=== PATIENT | male | born 1985 | race Caucasian/White ===

== ENCOUNTER 2020-01-17 10:48 | Inpatient (IN) | payer OTHER ==
--- NOTE | 2020-01-17 12:00 | PDOC ---
History of Present Illness - General Chief Complaint: Pain Stated Complaint: ABD PAIN Time Seen by Provider: 01/17/20 11:17 History Source: Patient Exam Limitations: No Limitations Past History - Travel History Traveled outside of the country in the last 30 days: No Close contact w/someone who was outside of country & ill: No - Medical History Allergies/Adverse Reactions: Allergies Allergy/AdvReac Type Severity Reaction Status Date / Time No Known Allergies Allergy Verified 01/17/20 10:51 Home Medications: Ambulatory Orders NK [No Known Home Medication] 01/17/20 COPD: No - Psycho-Social/Smoking History Smoking History: Never smoked Have you smoked in the past 12 months: No - Substance Abuse Hx (Audit-C & DAST Scrn) How often the patient has a drink containing alcohol: Monthly or less Number of drinks the patient has on a typical day: 1 or 2 How often the patient has six or more drinks on one occasion: Never Score: In Men: 4 or > Positive; In Women: 3 or > Positive: 1 Screen Result (Pos requires Nsg. Audit-10AR): Negative In the last yr the pt used illegal drug/Rx for NonMed reason: No Score: Yes response is considered Positive: 0 Screen Result (Positive result requires Nsg. DAST-10): Negative Review of Systems - Review of Systems Able to Perform ROS?: Yes Comments:: 01/17/20 11:55 CONSTITUTIONAL: Absent: fever, chills, diaphoresis, generalized weakness, malaise, loss of appetite HEENT: Absent: rhinorrhea, nasal congestion, throat pain, throat swelling, difficulty swallowing, mouth swelling, ear pain, eye pain, visual Changes CARDIOVASCULAR: Absent: chest pain, loss of consciousness, palpitations, irregular heart rate, peripheral edema RESPIRATORY: Absent: cough, shortness of breath, dyspnea with exertion, orthopnea, wheezing, stridor, hemoptysis GASTROINTESTINAL: Present: Abdominal pain, nausea Absent: abdominal distension, vomiting, diarrhea, constipation, melena, hematochezia GENITOURINARY: Absent: dysuria, frequency, urgency, hesitancy, hematuria, flank pain, genital pain MUSCULOSKELETAL: Absent: myalgia, arthralgia, joint swelling SKIN: Absent: rash, itching, pallor HEMATOLOGIC/IMMUNOLOGIC: Absent: easy bleeding, easy bruising, lymphadenopathy, frequent infections ENDOCRINE: Absent: unexplained weight gain, unexplained weight loss, heat intolerance, cold intolerance NEUROLOGIC: Absent: headache, focal weakness or paresthesias, dizziness, unsteady gait, seizure, mental status changes, bladder or bowel incontinence PSYCHIATRIC: Absent: anxiety, depression, suicidal or homicidal ideation, hallucinations. Is the patient limited Liberian proficient: No *Physical Exam - Vital Signs Last Vital Signs Temp Pulse Resp BP Pulse Ox 98.4 F 121 H 20 141/94 100 01/17/20 10:51 01/17/20 10:51 01/17/20 10:51 01/17/20 10:51 01/17/20 10:51 - Physical Exam 01/17/20 11:55 GENERAL: Well developed, well nourished. Awake and alert. No acute distress. HEENT: Normocephalic, atraumatic. PERRLA, EOMI. No conjunctival pallor. Sclera are non-icteric. Moist mucous membranes. NECK: Supple. Full ROM. No lymphadenopathy. CARDIOVASCULAR: Regular rate and rhythm. Distal pulses are 2+ and symmetric. PULMONARY: No evidence of respiratory distress. Breathing comfortably on room air. ABDOMINAL: Tenderness palpation of the epigastric region, suprapubic region. Soft. Non- distended. No rebound or guarding. No organomegaly. MUSCULOSKELETAL Normal range of motion at all joints. No bony deformities or tenderness. No CVA tenderness. EXTREMITIES: No cyanosis. No clubbing. No edema. No calf tenderness. SKIN: Warm and dry. Normal capillary refill. No rashes. No jaundice. NEUROLOGICAL: Alert, awake, appropriate. Cranial nerves 2-12 intact. No deficits to light touch and temperature in face, upper extremities and lower extremities. No motor deficits in the in face, upper extremities and lower extremities. Normoreflexic in the upper and lower extremities. Normal speech. Toes are down-going bilaterally. Gait is normal without ataxia. PSYCHIATRIC: Cooperative. Good eye contact. Appropriate mood and affect. ED Treatment Course - LABORATORY CBC & Chemistry Diagram: 01/17/20 13:05 01/17/20 13:05 Medical Decision Making - Medical Decision Making 01/17/20 11:56 The patient is a 34-year-old male with past medical history of morbid obesity, presents to the ER today for abdominal pain for 8 days. He states that approximately 1 week ago he ate chicken at work. He states that shortly thereafter he immediately developed abdominal pain and nausea. He states he threw up once which did help with his pain. He states that since then the pain is been persistent and has not improved with Kaopectate or Tylenol. He went to urgent care for evaluation yesterday who told him if the pain was worse to go to the ER. He states he did not do any blood work or work-up at that time. Currently denies fevers, chills, COVID exposure, shortness of breath, difficulty breathing, chest pain, diarrhea, constipation, vomiting, urinary symptoms. A/P: Abdominal pain On exam patient is tender in the epigastric region. He states that the pain sometimes travels to the periumbilical/suprapubic region however mostly focused in his upper abdomen. Denies recent antibiotic use, travel, alcohol use. Broad differential diagnosis including PUD, gastritis, pancreatitis, cholecystitis, cholangitis, appendicitis Labs, IV medication and fluids, urine, ultrasound and CT ordered Reevaluate 01/17/20 16:[address], there is an inflamed appendix with abscess formation. Likely perfect appendectomy Ultrasound shows sludge in the gallbladder with stones without evidence of acute cholecystitis. Patient is a white count of 17 with a left shift. Blood cultures drawn, Zosyn 4.5 given, morphine for pain Consulted with Dr. Maza he is aware and will evaluate the patient. Patient does not have a PCP. Will admit to hospitalist. Discharge - Discharge Information Problems reviewed: Yes Clinical Impression/Diagnosis: Appendicitis with abscess Condition: Guarded - Admission Yes - Follow up/Referral - Patient Discharge Instructions - Post Discharge Activity
[2020-01-17] MEDS ORDERED: FAMOTIDINE 20 MG/50 ML IVPB 20 MG/50 ML MG IVPB ONE ×2 (12:57→13:06)
[2020-01-17] MEDS ORDERED: ONDANSETRON 4 MG/2 ML VIAL IVPUSH ONE (12:57)
[2020-01-17] MEDS ORDERED: SODIUM CHLORIDE 1,000 ML IV STA (12:57)
[2020-01-17] MEDS ORDERED: ACETAMINOPHEN 1000 MG/100 ML VIAL (NON FORMULARY) IVPB ONE (12:57)
[2020-01-17] MEDS ORDERED: ACETAMINOPHEN INJECTION 100 ML IVPB ONE (13:06)
[2020-01-17 13:28] LABS: BASO % 0.4 % (0-2.0); EOS % 0.4 % (0-4.5); HEMATOCRIT 45.9 % (35.4-49); HEMOGLOBIN 15.8 GM/dL (11.7-16.9); LYMPH % 7.6 % (8-40); MCH 29.8 pg (25.7-33.7); MCHC 34.4 g/dl (32.0-35.9); MEAN CELL VOLUME 86.9 fl (80-96); MEAN PLT VOLUME 7.6 fl (7.5-11.1); NEUT % 84.6 % (42.8-82.8); RBC 5.28 M/mm3 (4.00-5.60); RDW 12.8 % (11.9-15.9); WHITE BLOOD COUNT 17.3 K/mm3 (4.0-10.0)
[2020-01-17 13:39] LABS: INR 1.28 (0.83-1.09); PROTHROMBIN TIME (PATIENT) 15.2 SEC (9.7-13.0)
[2020-01-17 13:44] LABS: ALBUMIN 3.6 g/dl (3.4-5.0); BILIRUBIN,TOTAL 0.4 mg/dL (0.2-1); BLOOD UREA NITROGEN 7.8 mg/dL (7-18); CALCIUM 9.5 mg/dL (8.5-10.1); CREATININE 0.8 mg/dL (0.55-1.3); POTASSIUM 4.2 mmol/L (3.5-5.1); TOT PROT 8.4 g/dl (6.4-8.2)
[2020-01-17 14:33] LABS: PLATELET COUNT 362 K/MM3 (134-434)
[2020-01-17] MEDS ORDERED: PIPERACILLIN/TAZOB 4.5 GM 4.5 GM in DEXTROSE 5%-WATER 100 ML IVPB ONE (15:32)
[2020-01-17] MEDS ORDERED: morphine CARPU-JECT 4 MG/1 ML DISP.SYRIN IVPUSH ONE (15:32)
[2020-01-17] MEDS ORDERED: morphine SULFATE 4 MG/ML VIAL ONE (16:10)
[2020-01-17] MEDS ORDERED: PIPERACILLIN/TAZOB 4.5 GM 4.5 GM/100 ML BAG IVPB ONE (16:11)
--- NOTE | 2020-01-17 16:54 | EKG ---
Test Reason : Blood Pressure : / mmHG Vent. Rate : 081 BPM Atrial Rate : 081 BPM P-R Int : 128 ms QRS Dur : 090 ms QT Int : 366 ms P-R-T Axes : 048 052 035 degrees QTc Int : 425 ms NORMAL SINUS RHYTHM WITH SINUS ARRHYTHMIA NORMAL ECG NO PREVIOUS ECGS AVAILABLE Confirmed by MARINA LIRA MD ([id number]) on 01/17/2020 4:54:10 PM Referred By: Confirmed By:MARINA LIRA MD
--- NOTE | 2020-01-17 16:54 | HP ---
CHIEF COMPLAINT: abdominal pain PCP: None HISTORY OF PRESENT ILLNESS: Patient is a 34 year old male with history of morbid obesity, presents with complaint of abdominal pain. States pain has been ongoing for the past 8 days. He believes the pain started after he ate reheated chicken tenders from [email or web address]. The pain was initially dull localized to the epigastrum, however progressed to sharp, stabbing pain radiating to the umbilicus. He endorses that any movement would exacerbate the pain, and he has been able to eat only soups, and small meals. Admits forcing himself to vomit when pain initially began as he thought it would alleviate the symptoms. Describes non blood, nonbilious vomit. He reportedly went to Urgent Care yesterday, and was told to proceed to Emergency Department if pain did not improve. He Has attempted Tylenol and Kaopectate which have been minimally palliative. He denies subjective fevers, shortness of breath, coughing, chest pain, palpitations, diarrhea, constipation, hemoptysis, melena, hematochezia. ER course was notable for: (1) CT abdomen, pelvis (2) Ultrasound abdomen (3) Recent Travel: denies PAST MEDICAL HISTORY: morbid obesity PAST SURGICAL HISTORY: bilateral eustachian tubes FAMILY HISTORY: Mother: diabetes mellitus, ?blood clot (unsure of location)- passed at 54 years old Father: diabetes mellitus Social History: Lives with fiance, and children. 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 He is independent in activities daily living. Smoking: Denies Alcohol: Endorses occasional drink of 4-5 beers, with 4 drinks of liquor once to twice a month. Drugs: Denies Allergies No Known Allergies Allergy (Verified 01/17/20 10:51) HOME MEDICATIONS: Home Medications Medication Instructions Recorded NK [No Known Home Medication] 01/17/20 REVIEW OF SYSTEMS CONSTITUTIONAL: Admits: chills. Absent: fever, diaphoresis, generalized weakness, malaise, loss of appetite, weight change HEENT: Absent: rhinorrhea, nasal congestion, throat pain, throat swelling, difficulty swallowing, mouth swelling, ear pain, eye pain, visual changes CARDIOVASCULAR: Absent: chest pain, syncope, palpitations, irregular heart rate, lightheadedness, peripheral edema RESPIRATORY: Absent: cough, shortness of breath, dyspnea with exertion, orthopnea, wheezing, stridor, hemoptysis GASTROINTESTINAL: Admits: abdominal pain, abdominal distension, nausea, vomiting. Absent: diarrhea, constipation, melena, hematochezia GENITOURINARY: Absent: dysuria, frequency, urgency, hesitancy, hematuria, flank pain, genital pain MUSCULOSKELETAL: Absent: myalgia, arthralgia, joint swelling, back pain, neck pain SKIN: Absent: rash, itching, pallor HEMATOLOGIC/IMMUNOLOGIC: Absent: easy bleeding, easy bruising, lymphadenopathy, frequent infections ENDOCRINE: Absent: unexplained weight gain, unexplained weight loss, heat intolerance, cold intolerance NEUROLOGIC: Absent: headache, focal weakness or paresthesias, dizziness, unsteady gait, seizure, mental status changes, bladder or bowel incontinence PSYCHIATRIC: Absent: anxiety, depression, suicidal or homicidal ideation, hallucinations. PHYSICAL EXAMINATION Vital Signs - 24 hr 01/17/20 10:51 Temperature 98.4 F Pulse Rate 121 H Respiratory 20 Rate Blood Pressure 141/94 O2 Sat by Pulse 100 Oximetry (%) GENERAL: The patient is awake, alert, and fully oriented, in no acute distress. HEAD: Normocephalic, atraumatic. EYES: PERRL, extraocular movements intact, sclera anicteric, conjunctiva clear. ENT: Oropharynx clear, without erythema or exudates. Moist mucous membranes. NECK: Trachea midline, full range of motion. Supple without lymphadenopathy. LUNGS: Breath sounds equal, clear to auscultation bilaterally. No wheezes, no crackles. No accessory muscle use. HEART: Regular rate and rhythm. S1, S2 without murmur, rub or gallop. ABDOMEN: Obese abdomen, distended. Soft, nontender to light and deep palpation x4 quadrants. No rebound tenderness, no guarding. Hypoactive bowel sounds x4 quadrants. No masses appreciated. EXTREMITIES: 2+ radial, dorsalis pedis pulses bilaterally. Warm, well-perfused. Trace lower extremity edema bilaterally. NEUROLOGICAL: Cranial nerves II through XII grossly intact. Normal speech. No gross focal deficits. PSYCH: Normal mood, normal affect upon my encounter. SKIN: Warm, dry. Laboratory Results - last 24 hr 01/17/20 01/17/20 01/17/20 13:05 13:05 13:05 WBC 17.3 H RBC 5.28 Hgb 15.8 Hct 45.9 MCV 86.9 MCH 29.8 MCHC 34.4 RDW 12.8 Plt Count 362 MPV 7.6 Absolute Neuts (auto) 14.7 H Neutrophils % 84.6 H Lymphocytes % 7.6 L Monocytes % 7.0 Eosinophils % 0.4 Basophils % 0.4 Nucleated RBC % 1 H PT with INR 15.20 H INR 1.28 H Sodium 135 L Potassium 4.2 Chloride 99 Carbon Dioxide 27 Anion Gap 9 BUN 7.8 Creatinine 0.8 Est GFR (CKD-EPI)AfAm 134.14 Est GFR (CKD-EPI)NonAf 115.74 Random Glucose 113 H Calcium 9.5 Total Bilirubin 0.4 AST 23 ALT 54 Alkaline Phosphatase 124 H Creatine Kinase Troponin I Total Protein 8.4 H Albumin 3.6 Lipase 121 01/17/20 13:05 WBC RBC Hgb Hct MCV MCH MCHC RDW Plt Count MPV Absolute Neuts (auto) Neutrophils % Lymphocytes % Monocytes % Eosinophils % Basophils % Nucleated RBC % PT with INR INR Sodium Potassium Chloride Carbon Dioxide Anion Gap BUN Creatinine Est GFR (CKD-EPI)AfAm Est GFR (CKD-EPI)NonAf Random Glucose Calcium Total Bilirubin AST ALT Alkaline Phosphatase Creatine Kinase 75 Troponin I < 0.02 Total Protein Albumin Lipase ASSESSMENT/PLAN: Patient is a 34 year old male with history of morbid obesity, presents with complaint of abdominal pain. Abdominal abscess, appendicitis -CT abdomen, pelvis reveals 10 x 7 cm abscess abutting cecum, and appendix. Mild mesenteric edema, with appendiceal wall thickening. Trace free fluid noted. Negative pneumoperitonem, or bowel obstruciton. -Ultrasound abdomen reveals multiple gallstones, sludge however negative for signs of acute cholecystitis. CBD 5mm. -Patient received IV Zosyn, will continue for anaerobic coverage. Vancomycin 1 gram IV one time dose. -Maintain NPO for now, pending surgical evaluation. -Gentle hydration with IV normal saline at 100mL/ hour -Ofirmev 1000mg IV Q 6 hours PRN for pain -Zofran 4mg IV Q 4 hours for nausea (QTC 425 msec) -General surgery evaluation (Dr. Maza) appreciated -Infectious disease consult (Dr. 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 -Will need to establish [place] [facility] [place] upon discharge ( endorses he has not seen a physician in over 7 years) -Will obtain TSH, free T4, HgbA1c, fasting lipid panel FEN -IV normal saline at 100mL/ hour x2 Liters -Follow BMP -NPO pending surgical evaluation Prophylaxis -SCDs bilateral lower extremities. Holding chemical anticoagulation in anticipation of surgical evaluation Disposition -Admit to medical surgical floor. Family Medical History Family History: As Documented Visit type - Emergency Visit Emergency Visit: Yes ED Registration Date: 01/17/20 Care time: The patient presented to the Emergency Department on the above date and was hospitalized for further evaluation of their emergent condition. - New Patient This patient is new to me today: Yes Date on this admission: 01/17/20 - Critical Care Critical Care patient: No ATTENDING PHYSICIAN STATEMENT I saw and evaluated the patient. I reviewed the resident's note and discussed the case with the resident. I agree with the resident's findings and plan as documented. SUBJECTIVE: OBJECTIVE: ASSESSMENT AND PLAN:
[2020-01-17] MEDS: SODIUM CHLORIDE 1,000 ML IV SCH ×2 (17:27→18:39)
[2020-01-17] MEDS ORDERED: FLU VACCINE (FLULAVAL) PF 60 MCG/0.5 ML SYRINGE 2020-2021 IM ONE (18:30)
[2020-01-17] MEDS ORDERED: VANCOMYCIN 1 GM in D5W (PRE-DOCKED) 1,000 MG/250 ML IVPB ONE (19:02)
[2020-01-17] MEDS: ACETAMINOPHEN 1000 MG/100 ML VIAL (NON FORMULARY) IVPB PRN (19:53)
--- NOTE | 2020-01-17 22:17 | PN ---
Teaching Attending Note Name of Resident: Tal Pradhan ATTENDING PHYSICIAN STATEMENT I saw and evaluated the patient. I reviewed the resident's note and discussed the case with the resident. I agree with the resident's findings and plan as documented. SUBJECTIVE: Patient seen and examined at bedside, found to have a para- appendiceal abscess, requiring IR drainage in AM. VSS. OBJECTIVE: GA AAOx3, mild distress HEENT NC/AT, mild acanthosis, wide neck circumference Chest CTAB, no crackles or wheezing CVS S1, S2+, RRR Abd morbidly obese, soft, mid-abdominal TTP, RUQ TTP, BS+ Ext no LE edema, no calf tenderness Vital Signs (72 hours) 01/17/20 01/17/20 01/17/20 10:51 18:04 18:23 Temperature 98.4 F 98.4 F 98.7 F Pulse Rate 121 H 84 Pulse Rate [ 77 Right] Respiratory 20 19 20 Rate Blood Pressure 141/94 140/94 Blood Pressure 121/68 [Left Arm] O2 Sat by Pulse 100 100 99 Oximetry (%) 01/17/20 20:18 Temperature Pulse Rate Pulse Rate [ Right] Respiratory 20 Rate Blood Pressure Blood Pressure [Left Arm] O2 Sat by Pulse 98 Oximetry (%) Laboratory Results - last 24 hr 01/17/20 01/17/20 01/17/20 13:05 13:05 13:05 WBC 17.3 H RBC 5.28 Hgb 15.8 Hct 45.9 MCV 86.9 MCH 29.8 MCHC 34.4 RDW 12.8 Plt Count 362 MPV 7.6 Absolute Neuts (auto) 14.7 H Neutrophils % 84.6 H Lymphocytes % 7.6 L Monocytes % 7.0 Eosinophils % 0.4 Basophils % 0.4 Nucleated RBC % 1 H PT with INR 15.20 H INR 1.28 H Sodium 135 L Potassium 4.2 Chloride 99 Carbon Dioxide 27 Anion Gap 9 BUN 7.8 Creatinine 0.8 Est GFR (CKD-EPI)AfAm 134.14 Est GFR (CKD-EPI)NonAf 115.74 Random Glucose 113 H Calcium 9.5 Total Bilirubin 0.4 AST 23 ALT 54 Alkaline Phosphatase 124 H Creatine Kinase Troponin I Total Protein 8.4 H Albumin 3.6 Lipase 121 01/17/20 13:05 WBC RBC Hgb Hct MCV MCH MCHC RDW Plt Count MPV Absolute Neuts (auto) Neutrophils % Lymphocytes % Monocytes % Eosinophils % Basophils % Nucleated RBC % PT with INR INR Sodium Potassium Chloride Carbon Dioxide Anion Gap BUN Creatinine Est GFR (CKD-EPI)AfAm Est GFR (CKD-EPI)NonAf Random Glucose Calcium Total Bilirubin AST ALT Alkaline Phosphatase Creatine Kinase 75 Troponin I < 0.02 Total Protein Albumin Lipase Home Medications Medication Instructions Recorded NK [No Known Home Medication] 01/17/20 Current Medications Generic Name Dose Route Start Last Admin Trade Name Freq PRN Reason Stop Dose Admin Acetaminophen 1,000 mg 01/17/20 17:27 01/17/20 19:53 Ofirmev Injection - IVPB 1,000 mg Q6H PRN Administration PAIN LEVEL 1-5 Sodium Chloride 1,000 mls @ 100 mls/hr 01/17/20 17:00 01/17/20 18:39 Normal Saline - IV 01/19/20 02:59 100 mls/hr ASDIR LEIDY Administration Piperacillin Sod/Tazobactam 50 mls @ 100 mls/hr 01/18/20 02:00 Sod 3.375 gm/ Dextrose IVPB Q8H-IV LEIDY Protocol Morphine Sulfate 2 mg 01/17/20 19:33 Morphine Sulfate IVPUSH Q4H PRN PAIN LEVEL 7 - 10 ASSESSMENT AND PLAN: 34 M Para-appendiceal/cecal abscess Morbid obesity Pre-HTN Fatty liver Plan: Empiric Zosyn/Vancomycin pending IR drainage Tylenol/Percocet for pain control IV hydration, serial abdominal exams Will eventually need colonoscopy once infection clears Send A1c/lipids/TSH DVT ppx: SCD
[2020-01-17] MEDS: MORPHINE SULFATE 2 MG/ML VIAL IVPUSH PRN (22:42)
[2020-01-18] MEDS ORDERED: PIPERACILLIN/TAZOBACTAM 3.375 GM VIAL IVPB ONE ×3 (01:02→17:59)
[2020-01-18] MEDS ORDERED: DEXTROSE 5%-WATER - 50 ML IVPB ONE ×3 (01:02→17:59)
[2020-01-18] MEDS: ACETAMINOPHEN 1000 MG/100 ML VIAL (NON FORMULARY) IVPB PRN ×4 (01:30→22:54)
[2020-01-18] MEDS: PIPERACILLIN/TAZOB 3.375 GM 3.375 GM in DEXTROSE 5%-WATER - 50 ML IVPB SCH ×3 (01:33→18:02)
[2020-01-18 02:09] LABS: PH,URINE 6.5 (5.0-8.0); URINE APPEARANCE CLEAR; URINE BILIRUBIN NEGATIVE (NEGATIVE); URINE COLOR YELLOW; URINE GLUCOSE (UA) NEGATIVE (NEGATIVE); URINE KETONE TRACE (NEGATIVE); URINE LEUK ESTERASE NEGATIVE (NEGATIVE); URINE NITRITE NEGATIVE (NEGATIVE); URINE PROTEIN NEGATIVE (NEGATIVE); URINE UROBILINOGEN 0.2 mg/dL (0.2-1.0)
[2020-01-18] MEDS: MORPHINE SULFATE 2 MG/ML VIAL IVPUSH PRN ×4 (04:34→20:04)
[2020-01-18] MEDS: SODIUM CHLORIDE 1,000 ML IV SCH ×2 (06:59→17:05)
[2020-01-18 08:23] LABS: HEMATOCRIT 39.6 % (35.4-49); HEMOGLOBIN 13.7 GM/dL (11.7-16.9); MCH 29.9 pg (25.7-33.7); MCHC 34.5 g/dl (32.0-35.9); MEAN CELL VOLUME 86.6 fl (80-96); MEAN PLT VOLUME 7.4 fl (7.5-11.1); PLATELET COUNT 291 K/MM3 (134-434); RBC 4.58 M/mm3 (4.00-5.60); RDW 12.7 % (11.9-15.9)
[2020-01-18 08:24] LABS: INR 1.39 (0.83-1.09); PROTHROMBIN TIME (PATIENT) 16.4 SEC (9.7-13.0)
[2020-01-18 08:27] LABS: ACTIVATED PTT 28.2 SECONDS (25.2-36.5)
[2020-01-18 08:41] LABS: BILIRUBIN,TOTAL 0.4 mg/dL (0.2-1); CALCIUM 8.7 mg/dL (8.5-10.1); CREATININE 0.7 mg/dL (0.55-1.3); MAGNESIUM 2.2 mg/dL (1.8-2.4); PHOSPHOROUS 4.2 mg/dL (2.5-4.9)
--- NOTE | 2020-01-18 09:38 | PN ---
Teaching Attending Note Name of Resident: Karol Prince ATTENDING PHYSICIAN STATEMENT I saw and evaluated the patient. I reviewed the resident's note and discussed the case with the resident. I agree with the resident's findings and plan as documented. SUBJECTIVE: patient waiting to go to IR for drainage OBJECTIVE: Vital Signs Temperature 98.7 F 01/18/20 06:16 Pulse Rate 93 H 01/18/20 06:16 Respiratory Rate 20 01/18/20 06:16 Blood Pressure 126/77 01/18/20 06:16 O2 Sat by Pulse Oximetry (%) 98 01/18/20 06:16 PE: per resident's note CBCD WBC 16.0 K/mm3 (4.0-10.0) H 01/18/20 07:45 RBC 4.58 M/mm3 (4.00-5.60) 01/18/20 07:45 Hgb 13.7 GM/dL (11.7-16.9) 01/18/20 07:45 Hct 39.6 % (35.4-49) 01/18/20 07:45 MCV 86.6 fl (80-96) 01/18/20 07:45 MCHC 34.5 g/dl (32.0-35.9) 01/18/20 07:45 RDW 12.7 % (11.9-15.9) 01/18/20 07:45 Plt Count 291 K/MM3 (134-434) 01/18/20 07:45 MPV 7.4 fl (7.5-11.1) L 01/18/20 07:45 CMP Sodium 138 mmol/L (136-145) 01/18/20 07:45 Potassium 4.0 mmol/L (3.5-5.1) 01/18/20 07:45 Chloride 104 mmol/L (98-107) 01/18/20 07:45 Carbon Dioxide 26 mmol/L (21-32) 01/18/20 07:45 Anion Gap 8 MMOL/L (8-16) 01/18/20 07:45 BUN 7.0 mg/dL (7-18) 01/18/20 07:45 Creatinine 0.7 mg/dL (0.55-1.3) 01/18/20 07:45 Random Glucose 111 mg/dL (74-106) H 01/18/20 07:45 Calcium 8.7 mg/dL (8.5-10.1) 01/18/20 07:45 Total Bilirubin 0.4 mg/dL (0.2-1) 01/18/20 07:45 AST 23 U/L (15-37) 01/18/20 07:45 ALT 43 U/L (13-61) 01/18/20 07:45 Alkaline Phosphatase 100 U/L (45-117) 01/18/20 07:45 Total Protein 7.0 g/dl (6.4-8.2) 01/18/20 07:45 Albumin 3.0 g/dl (3.4-5.0) L 01/18/20 07:45 CARDIAC ENZYMES Creatine Kinase 75 U/L (26-308) 01/17/20 13:05 Troponin I < 0.02 ng/ml (0.00-0.05) 01/17/20 13:05 Current Medications Generic Name Dose Route Start Last Admin Trade Name Freq PRN Reason Stop Dose Admin Acetaminophen 1,000 mg 01/17/20 17:27 01/18/20 06:55 Ofirmev Injection - IVPB 1,000 mg Q6H PRN Administration PAIN LEVEL 1-5 Sodium Chloride 1,000 mls @ 100 mls/hr 01/17/20 17:00 01/18/20 06:59 Normal Saline - IV 01/19/20 02:59 100 mls/hr ASDIR LEIDY Administration Piperacillin Sod/Tazobactam 50 mls @ 100 mls/hr 01/18/20 02:00 01/18/20 09:30 Sod 3.375 gm/ Dextrose IVPB 100 mls/hr Q8H-IV LEIDY Administration Protocol Morphine Sulfate 2 mg 01/17/20 19:33 01/18/20 09:28 Morphine Sulfate IVPUSH 2 mg Q4H PRN Administration PAIN LEVEL 7 - 10 Home Medications Medication Instructions Recorded NK [No Known Home Medication] 01/17/20 CT abdomen, pelvis reveals 10 x 7 cm abscess abutting cecum, and appendix. Mild mesenteric edema, with appendiceal wall thickening. Trace free fluid noted. Negative pneumoperitonem, or bowel obstruciton. Ultrasound abdomen reveals multiple gallstones, sludge however negative for signs of acute cholecystitis. CBD 5mm. ASSESSMENT AND PLAN: Patient is a 34yom with hx of morbid obesity, presents with complaint of abdominal pain and was found to have abdominal abscesses with appendicitis. 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 DVt px: SCDs bilateral lower extremities. will hold off on Ac since for possible sx vs IR procedure
--- NOTE | 2020-01-18 11:56 | CONSULT ---
<Jenny Gregorio - Last Filed: 01/18/20 11:59> - Consultation REQUESTING PROVIDER: CONSULT REQUEST: We have been asked to surgically evaluate this patient for abscess/ruptured appendicitis Hospitalist:Nestor Whitley HISTORY OF PRESENT ILLNESS: 34 y/o M w/ PMHx morbid obesity, a/w abdominal pain. Pt reports he began having epigastric pain last Monday 01/08 at work after eating leftover food. States he left work early, went home and forced himself to vomit (nonbloody, nonbilious) a few times without improvement. Took Tylenol and Mylanta with minimal relief. Began having abdominal cramping Friday which persisted most of the week. States he drank liquids and was able to tolerate small amounts of food without issue. Has had worsening periumbilical pain over the past 2 days and went to urgent care who referred him to the ED for further evaluation. Denies n/v/d. Has been having normal bowel movements all week. PMHx: as above PSHx: b/l Eustachian tubes Home Medications Medication Instructions Recorded NK [No Known Home Medication] 01/17/20 Allergies Allergy/AdvReac Type Severity Reaction Status Date / Time No Known Allergies Allergy Verified 01/17/20 10:51 REVIEW OF SYSTEMS: CONSTITUTIONAL: Absent: fever, chills CARDIOVASCULAR: Absent: chest pain, syncope RESPIRATORY: Absent: cough, shortness of breath GASTROINTESTINAL: (+) abdominal pain, (-) abdominal distension, (-) nausea, (+)vomiting, (- )diarrhea PHYSICAL EXAM: GENERAL: Awake, alert, and fully oriented, in no acute distress. HEAD: Normal with no signs of trauma. LUNGS: No accessory muscle use on RA ABDOMEN: Soft, obese, +ttp around umbilicus, not distended, hypoactie bowel sounds Vital Signs Temperature 98.9 F 01/18/20 10:00 Pulse Rate 81 01/18/20 10:00 Respiratory Rate 20 01/18/20 10:00 Blood Pressure 139/80 01/18/20 10:00 O2 Sat by Pulse Oximetry (%) 98 01/18/20 10:00 Lab Results WBC 16.0 K/mm3 (4.0-10.0) H 01/18/20 07:45 RBC 4.58 M/mm3 (4.00-5.60) 01/18/20 07:45 Hgb 13.7 GM/dL (11.7-16.9) 01/18/20 07:45 Hct 39.6 % (35.4-49) 01/18/20 07:45 MCV 86.6 fl (80-96) 01/18/20 07:45 MCHC 34.5 g/dl (32.0-35.9) 01/18/20 07:45 RDW 12.7 % (11.9-15.9) 01/18/20 07:45 Plt Count 291 K/MM3 (134-434) 01/18/20 07:45 INR 1.39 (0.83-1.09) H 01/18/20 07:45 Sodium 138 mmol/L (136-145) 01/18/20 07:45 Potassium 4.0 mmol/L (3.5-5.1) 01/18/20 07:45 Chloride 104 mmol/L (98-107) 01/18/20 07:45 Carbon Dioxide 26 mmol/L (21-32) 01/18/20 07:45 Anion Gap 8 MMOL/L (8-16) 01/18/20 07:45 BUN 7.0 mg/dL (7-18) 01/18/20 07:45 Creatinine 0.7 mg/dL (0.55-1.3) 01/18/20 07:45 Random Glucose 111 mg/dL (74-106) H 01/18/20 07:45 Calcium 8.7 mg/dL (8.5-10.1) 01/18/20 07:45 Blood Type B POSITIVE 01/18/20 07:45 Antibody Screen Negative 01/18/20 07:45 CT A/P (01/17/20): a large approximately 10x7cm abscess is seen within the mesentery centrally at the level of lower abdomen abutting the cecum and appendix. The appendix is visualized along the right lateral border of this abscess appears slightly thickened which could be on the basis of acute appendicitis vs a reactive basis A/P: 34 y/o M w/ PMHx morbid obesity, a/w abdominal pain. CT scan revealing rlq abscess consistent with ruptured appendicitis. afebrile, tachy to low 90s leukocytosis trending down -plan for IR today for drainage of abscess/drain placement -iv abx per ID -Keep npo, ivf -Serial abso exams -Monitor vs -will follow closely d/w attending Dr Maza <Drew Maza - Last Filed: 01/21/20 16:14> - Consultation Attending Surgeon: I personally saw and examined the patient. My examination reveals a patient with complicated appendicitis. I discussed the case with the surgical PA and agree with their findings and plan of care with any exceptions as noted. ~ Drew Maza MD, FACS
[2020-01-18] MEDS ORDERED: MORPHINE SULFATE 2 MG/ML VIAL IM ONE (12:24)
--- NOTE | 2020-01-18 13:13 | CON.ID ---
Consult Consult Specialty:: infectious diseases Referred by:: hospitalist Reason for Consultation:: abd pain - History of Present Illness Chief Complaint: rlq pain History of Present Illness: 34 year old male with history of morbid obesity, presents with complaint of abdominal pain. States pain has been ongoing for the past 8 days. He believes the pain started after he ate reheated chicken tenders from [employer]. The pain was initially dull localized to the epigastrum, however progressed to sharp, stabbing pain radiating to the umbilicus. He endorses that any movement would exacerbate the pain, and he has been able to eat only soups, and small meals. Admits forcing himself to vomit when pain initially began as he thought it would alleviate the symptoms. Describes non blood, nonbilious vomit. He reportedly went to Urgent Care yesterday, and was told to proceed to Emergency Department if pain did not improve. He Has attempted Tylenol and Kaopectate which have been minimally palliative. He denies subjective fevers, shortness of breath, coughing, chest pain, palpitations, diarrhea, constipation, hemoptysis, melena, hematochezia. still continues to have abd pain patient was worked up and found to ahve appendicitis with phlegmon .surgery on the case and the plan is to drain the abscess - History Source History Provided By: Patient Limitations to Obtaining History: No Limitations - Smoking History Smoking history: Never smoked Have you smoked in the past 12 months: No Home Medications - Allergies Allergies/Adverse Reactions: Allergies Allergy/AdvReac Type Severity Reaction Status Date / Time No Known Allergies Allergy Verified 01/17/20 10:51 - Home Medications Home Medications: Ambulatory Orders NK [No Known Home Medication] 01/17/20 Review of Systems - Review of Systems Constitutional: reports: Other (pain) Eyes: reports: No Symptoms HENT: reports: No Symptoms Neck: reports: No Symptoms Cardiovascular: reports: No Symptoms Respiratory: reports: No Symptoms Gastrointestinal: reports: Abdominal Pain Genitourinary: reports: No Symptoms Musculoskeletal: reports: No Symptoms Integumentary: reports: No Symptoms Neurological: reports: No Symptoms Endocrine: reports: No Symptoms Hematology/Lymphatic: reports: No Symptoms Psychiatric: reports: No Symptoms Physical Exam Vital Signs: Vital Signs Temperature 98.9 F 01/18/20 10:00 Pulse Rate 81 01/18/20 10:00 Respiratory Rate 20 01/18/20 10:00 Blood Pressure 139/80 01/18/20 10:00 O2 Sat by Pulse Oximetry (%) 98 01/18/20 10:00 Constitutional: Yes: Well Nourished, No Distress, Calm Eyes: Yes: Conjunctiva Clear HENT: Yes: Atraumatic, Normocephalic Neck: Yes: Supple, Trachea Midline Cardiovascular: Yes: Regular Rate and Rhythm, S1, S2 Respiratory: Yes: Regular, CTA Bilaterally Gastrointestinal: Yes: Soft, Hypoactive Bowel Sounds, Tenderness Musculoskeletal: Yes: WNL Extremities: Yes: WNL Neurological: Yes: Alert, Oriented Psychiatric: Yes: Alert, Oriented Labs: CBC, BMP 01/18/20 07:45 01/18/20 07:45 Imaging - Results Cat Scan: Report Reviewed, Image Reviewed Ultrasound: Report Reviewed, Image Reviewed Assessment/Plan 34 year old male with history of morbid obesity, presents with complaint of abdominal pain. Abdominal abscess, appendicitis Morbid obesity plan patient awaiting drainage cx the drainage abx npo hydration
--- NOTE | 2020-01-18 17:10 | PN ---
Physical Exam: SUBJECTIVE: Patient seen and examined at bedside, reports intermittent cramping, turning pain 10/10 at worse. Worse with any movements, non relieving. at times localized to the umbilicus and radiating to back. He reports that the reason for the delay in seeking medical care was because he thought this was food poisoning and was trying to ride it out. Foul smelling soft stool at first but no diarrhea. few episodes of nausea and vomiting. No fevers but chills in the recent few days OBJECTIVE: Vital Signs Period Temp Pulse Resp BP Sys/Marinelli Pulse Ox Last 24 Hr 98.4 F-99.1 F 76-119 18-20 121-147/68-99 2-100 GENERAL: The patient is awake, alert, and fully oriented, in mild distress HEAD: Normocephalic, atraumatic. EYES: PERRL, extraocular movements intact, sclera anicteric, conjunctiva clear. ENT: Oropharynx clear, without erythema or exudates. Moist mucous membranes. NECK: Trachea midline, full range of motion. Supple without lymphadenopathy. LUNGS: Breath sounds equal, clear to auscultation bilaterally. No wheezes, no crackles. No accessory muscle use. HEART: Regular rate and rhythm. S1, S2 without murmur, rub or gallop. ABDOMEN: Obese abdomen, non distended, + obturator sign . TPP in all quadrants. Hypoactive bowel sounds x4 quadrants. EXTREMITIES: 2+ radial, dorsalis pedis pulses bilaterally. Warm, well-perfused. NEUROLOGICAL: Cranial nerves II through XII grossly intact. Normal speech. No gross focal deficits. SKIN: Warm, dry. Laboratory Results - last 24 hr 01/18/20 01/18/20 01/18/20 00:00 07:45 07:45 WBC 16.0 H RBC 4.58 Hgb 13.7 Hct 39.6 MCV 86.6 MCH 29.9 MCHC 34.5 RDW 12.7 Plt Count 291 MPV 7.4 L PT with INR 16.40 H INR 1.39 H PTT (Actin FS) 28.2 Sodium Potassium Chloride Carbon Dioxide Anion Gap BUN Creatinine Est GFR (CKD-EPI)AfAm Est GFR (CKD-EPI)NonAf Random Glucose Hemoglobin A1c % Calcium Phosphorus Magnesium Total Bilirubin AST ALT Alkaline Phosphatase Total Protein Albumin Triglycerides Cholesterol Total LDL Cholesterol HDL Cholesterol TSH Free T4 Urine Color Yellow Urine Appearance Clear Urine pH 6.5 Ur Specific [place] 1.018 Urine Protein Negative Urine Glucose (UA) Negative Urine Ketones Trace H Urine Blood Negative Urine Nitrite Negative Urine Bilirubin Negative Urine Urobilinogen 0.2 Ur Leukocyte Esterase Negative Blood Type Antibody Screen 01/18/20 01/18/20 01/18/20 07:45 07:45 07:45 WBC RBC Hgb Hct MCV MCH MCHC RDW Plt Count MPV PT with INR INR PTT (Actin FS) Sodium 138 Potassium 4.0 Chloride 104 Carbon Dioxide 26 Anion Gap 8 BUN 7.0 Creatinine 0.7 Est GFR (CKD-EPI)AfAm 141.70 Est GFR (CKD-EPI)NonAf 122.26 Random Glucose 111 H Hemoglobin A1c % 5.3 Calcium 8.7 Phosphorus 4.2 Magnesium 2.2 Total Bilirubin 0.4 AST 23 ALT 43 Alkaline Phosphatase 100 Total Protein 7.0 Albumin 3.0 L Triglycerides 97 Cholesterol 156 Total LDL Cholesterol 103 H HDL Cholesterol 34 L TSH 1.59 Free T4 1.34 H Urine Color Urine Appearance Urine pH Ur Specific [place] Urine Protein Urine Glucose (UA) Urine Ketones Urine Blood Urine Nitrite Urine Bilirubin Urine Urobilinogen Ur Leukocyte Esterase Blood Type B POSITIVE Antibody Screen Negative Active Medications Generic Name Dose Route Start Last Admin Trade Name Freq PRN Reason Stop Dose Admin Acetaminophen 1,000 mg 01/17/20 17:27 01/18/20 06:55 Ofirmev Injection - IVPB 1,000 mg Q6H PRN Administration PAIN LEVEL 1-5 Sodium Chloride 1,000 mls @ 100 mls/hr 01/17/20 17:00 01/18/20 06:59 Normal Saline - IV 01/19/20 02:59 100 mls/hr ASDIR LEIDY Administration Piperacillin Sod/Tazobactam 50 mls @ 100 mls/hr 01/18/20 18:00 Sod 3.375 gm/ Dextrose IVPB Q8H-IV LEIDY Protocol Morphine Sulfate 2 mg 01/18/20 12:23 01/18/20 14:35 Morphine Sulfate IVPUSH 2 mg Q3H PRN Administration PAIN LEVEL 7 - 10 CTAB: A large approximately 10 x 7 cm abscess is seen within the mesentery centrally at the level of lower abdomen abutting the cecum and appendix. The appendix is visualized along the right lateral border of this abscess appears slightly thickened which could be on the basis of acute appendicitis versus on a reactive basis. Trace pelvic free fluid. Probable diffuse hepatic steatosis. Mild splenomegaly. US Abdomen: Gallstones and gallbladder sludge with no sonographic evidence of cholecystitis. Fatty infiltration of the liver. ASSESSMENT/PLAN: 34 Y M with a PMH of morbid obesity, presents with abdominal pain, CTAP revealed 10 x 7 cm abscess abutting the cecum and appendix + acute appendicitis, admitted for Appendicitis #Appendicitis #abscess abutting cecum, and appendix - abscess likely 2/2 to ruptured appendix 2/2 to appendicitis - CTAB and US abdomen as noted above - Surgery, is consulted, recs appreciated - Pending IR abscess Drainage with - ID, Dr. 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 - New Patient This patient is new to me today: No - Critical Care Critical Care patient: No - Discharge Referral Referred to [facility] Med P.C.: No ATTENDING PHYSICIAN STATEMENT I saw and evaluated the patient. I reviewed the resident's note and discussed the case with the resident. I agree with the resident's findings and plan as documented. SUBJECTIVE: OBJECTIVE: ASSESSMENT AND PLAN:
[2020-01-19] MEDS ORDERED: PIPERACILLIN/TAZOBACTAM 3.375 GM VIAL IVPB ONE ×3 (01:09→17:04)
[2020-01-19] MEDS ORDERED: DEXTROSE 5%-WATER - 50 ML IVPB ONE ×3 (01:09→17:05)
[2020-01-19] MEDS: PIPERACILLIN/TAZOB 3.375 GM 3.375 GM in DEXTROSE 5%-WATER - 50 ML IVPB SCH ×3 (02:30→17:07)
[2020-01-19] MEDS: MORPHINE SULFATE 2 MG/ML VIAL IVPUSH PRN ×4 (06:25→23:38)
[2020-01-19 09:04] LABS: BASO % 0.1 % (0-2.0); EOS % 0.7 % (0-4.5); HEMATOCRIT 41.8 % (35.4-49); HEMOGLOBIN 14.3 GM/dL (11.7-16.9); LYMPH % 12.2 % (8-40); MCH 29.5 pg (25.7-33.7); MCHC 34.1 g/dl (32.0-35.9); MEAN CELL VOLUME 86.6 fl (80-96); MEAN PLT VOLUME 7.6 fl (7.5-11.1); MONO % 6.3 % (3.8-10.2); NEUT % 80.7 % (42.8-82.8); PLATELET COUNT 362 K/MM3 (134-434); RBC 4.83 M/mm3 (4.00-5.60); RDW 12.8 % (11.9-15.9)
[2020-01-19 09:28] LABS: BILIRUBIN,TOTAL 0.6 mg/dL (0.2-1); BLOOD UREA NITROGEN 8.4 mg/dL (7-18); CALCIUM 8.9 mg/dL (8.5-10.1); CREATININE 0.7 mg/dL (0.55-1.3); MAGNESIUM 2.3 mg/dL (1.8-2.4); PHOSPHOROUS 3.3 mg/dL (2.5-4.9); POTASSIUM 4.1 mmol/L (3.5-5.1); TOT PROT 7.3 g/dl (6.4-8.2)
--- NOTE | 2020-01-19 09:40 | PN ---
Progress Note, Physician History of Present Illness: stable no new issues feels better after drainage - Current Medication List Current Medications: Active Medications Acetaminophen (Ofirmev Injection -) 1,000 mg IVPB Q6H PRN PRN Reason: PAIN LEVEL 1-5 Last Admin: 01/18/20 22:54 Dose: 1,000 mg Documented by: Piperacillin Sod/Tazobactam (Sod 3.375 gm/ Dextrose) 50 mls @ 100 mls/hr IVPB Q8H-IV LEIDY; Protocol Last Admin: 01/19/20 09:16 Dose: 100 mls/hr Documented by: Morphine Sulfate (Morphine Sulfate) 2 mg IVPUSH Q3H PRN PRN Reason: PAIN LEVEL 7 - 10 Last Admin: 01/19/20 06:25 Dose: 2 mg Documented by: - Objective Vital Signs: Vital Signs Temperature 98.7 F 01/19/20 05:43 Pulse Rate 104 H 01/19/20 05:43 Respiratory Rate 20 01/19/20 05:43 Blood Pressure 125/69 01/19/20 05:43 O2 Sat by Pulse Oximetry (%) 98 01/19/20 05:43 Constitutional: Yes: Calm, Mild Distress Cardiovascular: Yes: S1, S2 Respiratory: Yes: Regular, CTA Bilaterally Gastrointestinal: Yes: Soft, Hypoactive Bowel Sounds, Other (drain in place) Musculoskeletal: Yes: WNL Extremities: Yes: WNL Neurological: Yes: Alert, Oriented Psychiatric: Yes: Alert, Oriented Labs: CBC, BMP 01/19/20 08:08 01/19/20 08:08 INR, PTT INR 1.39 (0.83-1.09) H 01/18/20 07:45 Assessment/Plan 34 year old male with history of morbid obesity, presents with complaint of abdominal pain. Abdominal abscess, appendicitis Morbid obesity plan ct abx await for drainage rest as per the team
--- NOTE | 2020-01-19 10:27 | PN ---
Progress Note (short form) - Note Progress Note: Pt seen and examined. Went to IR yesterday afternoon for drain placement. States the pain is "manageable" today. Had a watery bowel movement this morning. Has been oob to the restroom. Voiding without issue, NPO. Passing some flatus. Denies cp.sob, n/v. Vital Signs Temp 98.7 F 01/19/20 05:43 Pulse 104 H 01/19/20 05:43 Resp 20 01/19/20 05:43 BP 125/69 01/19/20 05:43 Pulse Ox 98 01/19/20 05:43 Intake & Output 01/18/20 01/18/20 01/19/20 11:59 23:59 11:59 Intake Total 1350 1100 1150 Output Total 650 70 Balance 9493 264 0982 Intake: IV 8184 371 2945 Normal Saline - 1,000 ml 7440 126 9697 @ 100 mls/hr IV ASDIR LEIDY Rx#:[id number] IVPB 150 300 50 Output: Drainage 200 70 Left Lower Lateral 200 70 Abdomen Urine 450 Void 450 Other: Voiding Method Toilet Toilet Urinal # Unmeasured Voids Void 1 Bowel Movement No No Yes # Bowel Movements 1 CBC, BMP 01/19/20 08:08 01/19/20 08:08 Gen: awake, alert, nad Resp: Unlabored on RA Abdo: obese, soft, nondistended, some ttp at drain site. Drain in place with feculent brown/green discharge in reservoir and tubing. A/P: 34 y/o M w/ PMHx morbid obesity, a/w abdominal pain. CT scan revealing rlq abscess consistent with ruptured appendicitis. afebrile, tachy 10 1teens leukocytosis continues to trend down drain output 70ml overnight -iv abx per ID -Keep npo, ivf -Drain management per IR -Pain control -Serial abdo exams -Monitor vs -will follow closely d/w attending Dr Maza
[2020-01-19] MEDS: DEXTROSE 5%-NORMAL SALINE 1,000 ML IV SCH (13:36)
--- NOTE | 2020-01-19 14:44 | PN ---
Physical Exam: SUBJECTIVE: Patient seen and examined at bedside, reports some improvement with the Drain, No fevers overnight, reports sweating. Passing gas, able to urinate, loose stool this morning OBJECTIVE: Vital Signs Period Temp Pulse Resp BP Sys/Marinelli Pulse Ox Last 24 Hr 98.2 F-98.7 F 102-119 18-20 125-152/69-100 2-98 GENERAL: The patient is awake, alert, and fully oriented, in mild distress HEAD: Normocephalic, atraumatic. EYES: PERRL, extraocular movements intact, sclera anicteric, conjunctiva clear. ENT: Oropharynx clear, without erythema or exudates. Moist mucous membranes. NECK: Trachea midline, full range of motion. Supple without lymphadenopathy. LUNGS: Breath sounds equal, clear to auscultation bilaterally. No wheezes, no crackles. No accessory muscle use. HEART: Regular rate and rhythm. S1, S2 without murmur, rub or gallop. ABDOMEN: Obese abdomen, non distended. TPP in all quadrants. BS + in all 4 Quadrants. Drain is in place-draining Green/brown EXTREMITIES: 2+ radial, dorsalis pedis pulses bilaterally. Warm, well-perfused. NEUROLOGICAL: Cranial nerves II through XII grossly intact. Normal speech. No gross focal deficits. SKIN: Warm, dry. Laboratory Results - last 24 hr 01/19/20 01/19/20 08:08 08:08 WBC 15.0 H RBC 4.83 Hgb 14.3 Hct 41.8 MCV 86.6 MCH 29.5 MCHC 34.1 RDW 12.8 Plt Count 362 D MPV 7.6 Absolute Neuts (auto) 12.1 H Neutrophils % 80.7 Lymphocytes % 12.2 D Monocytes % 6.3 Eosinophils % 0.7 Basophils % 0.1 Nucleated RBC % 0 Sodium 136 Potassium 4.1 Chloride 101 Carbon Dioxide 26 Anion Gap 9 BUN 8.4 Creatinine 0.7 Est GFR (CKD-EPI)AfAm 141.70 Est GFR (CKD-EPI)NonAf 122.26 Random Glucose 115 H Calcium 8.9 Phosphorus 3.3 Magnesium 2.3 Total Bilirubin 0.6 AST 30 ALT 42 Alkaline Phosphatase 127 H Total Protein 7.3 Albumin 3.0 L Active Medications Generic Name Dose Route Start Last Admin Trade Name Freq PRN Reason Stop Dose Admin Acetaminophen 1,000 mg 01/17/20 17:27 10/06/20 22:54 Ofirmev Injection - IVPB 1,000 mg Q6H PRN Administration PAIN LEVEL 1-5 Piperacillin Sod/Tazobactam 50 mls @ 100 mls/hr 01/18/20 18:00 01/19/20 09:16 Sod 3.375 gm/ Dextrose IVPB 100 mls/hr Q8H-IV LEIDY Administration Protocol Dextrose/Sodium Chloride 1,000 mls @ 100 mls/hr 01/19/20 13:15 01/19/20 13:36 D5-Ns - IV 100 mls/hr ASDIR LEIDY Administration Morphine Sulfate 2 mg 01/18/20 12:23 01/19/20 06:25 Morphine Sulfate IVPUSH 2 mg Q3H PRN Administration PAIN LEVEL 7 - 10 CTAB: A large approximately 10 x 7 cm abscess is seen within the mesentery centrally at the level of lower abdomen abutting the cecum and appendix. The appendix is visualized along the right lateral border of this abscess appears slightly thickened which could be on the basis of acute appendicitis versus on a reactive basis. Trace pelvic free fluid. Probable diffuse hepatic steatosis. Mild splenomegaly. US Abdomen: Gallstones and gallbladder sludge with no sonographic evidence of cholecystitis. Fatty infiltration of the liver. ASSESSMENT/PLAN: 34 Y M with a PMH of morbid obesity, presents with abdominal pain, CTAP revealed 10 x 7 cm abscess abutting the cecum and appendix + acute appendicitis, admitted for Appendicitis #Appendicitis #abscess abutting cecum, and appendix - abscess likely 2/2 to ruptured appendix 2/2 to appendicitis - CTAB and US abdomen as noted above - Surgery, is consulted, recs appreciated Keep NPO - s/p IR abscess Drainage with Drained 70ml of green/brown fluids overnight - ID, Dr. 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, pending eval - Will refer to [facility] [place] for primary care upon discharge (No PCP for >7 years) - HbA1c 5.3, Lipid pannel: Cholesterol 156, LDL 103, HDL 34, TSH 1.59, FT4 1.34 FEN - D5W + NS @ 100 mls/hr - Will continue to monitor electrolytes - NPO DVT ppx - Holding chemical ppx - SCDs Dispo - Will continue to monitor in [place] Visit type - Emergency Visit Emergency Visit: Yes ED Registration Date: 01/17/20 Care time: The patient presented to the Emergency Department on the above date and was hospitalized for further evaluation of their emergent condition. - New Patient This patient is new to me today: No - Critical Care Critical Care patient: No - Discharge Referral Referred to [facility] Med P.C.: No ATTENDING PHYSICIAN STATEMENT I saw and evaluated the patient. I reviewed the resident's note and discussed the case with the resident. I agree with the resident's findings and plan as documented. SUBJECTIVE: OBJECTIVE: ASSESSMENT AND PLAN:
--- NOTE | 2020-01-19 18:46 | PN ---
Teaching Attending Note Name of Resident: Karol Prince ATTENDING PHYSICIAN STATEMENT I saw and evaluated the patient. I reviewed the resident's note and discussed the case with the resident. I agree with the resident's findings and plan as documented. SUBJECTIVE: Patient is feeling better s/p IR procedure OBJECTIVE: Vital Signs Temperature 99.5 F 01/19/20 14:50 Pulse Rate 110 H 01/19/20 14:50 Respiratory Rate 20 01/19/20 14:50 Blood Pressure 136/85 01/19/20 14:50 O2 Sat by Pulse Oximetry (%) 95 01/19/20 14:50 PE;per resident's note CBCD WBC 15.0 K/mm3 (4.0-10.0) H 01/19/20 08:08 RBC 4.83 M/mm3 (4.00-5.60) 01/19/20 08:08 Hgb 14.3 GM/dL (11.7-16.9) 01/19/20 08:08 Hct 41.8 % (35.4-49) 01/19/20 08:08 MCV 86.6 fl (80-96) 01/19/20 08:08 MCHC 34.1 g/dl (32.0-35.9) 01/19/20 08:08 RDW 12.8 % (11.9-15.9) 01/19/20 08:08 Plt Count 362 K/MM3 (134-434) D 01/19/20 08:08 MPV 7.6 fl (7.5-11.1) 01/19/20 08:08 CMP Sodium 136 mmol/L (136-145) 01/19/20 08:08 Potassium 4.1 mmol/L (3.5-5.1) 01/19/20 08:08 Chloride 101 mmol/L (98-107) 01/19/20 08:08 Carbon Dioxide 26 mmol/L (21-32) 01/19/20 08:08 Anion Gap 9 MMOL/L (8-16) 01/19/20 08:08 BUN 8.4 mg/dL (7-18) 01/19/20 08:08 Creatinine 0.7 mg/dL (0.55-1.3) 01/19/20 08:08 Random Glucose 115 mg/dL (74-106) H 01/19/20 08:08 Calcium 8.9 mg/dL (8.5-10.1) 01/19/20 08:08 Total Bilirubin 0.6 mg/dL (0.2-1) 01/19/20 08:08 AST 30 U/L (15-37) 01/19/20 08:08 ALT 42 U/L (13-61) 01/19/20 08:08 Alkaline Phosphatase 127 U/L (45-117) H 01/19/20 08:08 Total Protein 7.3 g/dl (6.4-8.2) 01/19/20 08:08 Albumin 3.0 g/dl (3.4-5.0) L 01/19/20 08:08 CARDIAC ENZYMES Creatine Kinase 75 U/L (26-308) 01/17/20 13:05 Troponin I < 0.02 ng/ml (0.00-0.05) 01/17/20 13:05 Current Medications Generic Name Dose Route Start Last Admin Trade Name Freq PRN Reason Stop Dose Admin Acetaminophen 1,000 mg 01/17/20 17:27 01/18/20 22:54 Ofirmev Injection - IVPB 1,000 mg Q6H PRN Administration PAIN LEVEL 1-5 Piperacillin Sod/Tazobactam 50 mls @ 100 mls/hr 01/18/20 18:00 01/19/20 17:07 Sod 3.375 gm/ Dextrose IVPB 100 mls/hr Q8H-IV LEIDY Administration Protocol Dextrose/Sodium Chloride 1,000 mls @ 100 mls/hr 01/19/20 13:15 01/19/20 13:36 D5-Ns - IV 01/20/20 23:14 100 mls/hr ASDIR LEIDY Administration Morphine Sulfate 2 mg 01/18/20 12:23 01/19/20 17:06 Morphine Sulfate IVPUSH 2 mg Q3H PRN Administration PAIN LEVEL 7 - 10 Home Medications Medication Instructions Recorded NK [No Known Home Medication] 01/17/20 Microbiology 01/17/20 16:15 Blood - Peripheral Venous Blood Culture - Preliminary NO GROWTH OBTAINED AFTER 48 HOURS, INCUBATION TO CONTINUE FOR 3 DAYS. 01/17/20 16:15 Blood - Peripheral Venous Blood Culture - Preliminary NO GROWTH OBTAINED AFTER 48 HOURS, INCUBATION TO CONTINUE FOR [address] abdomen, pelvis reveals 10 x 7 cm abscess abutting cecum, and appendix. Mild mesenteric edema, with appendiceal wall thickening. Trace free fluid noted. N egative pneumoperitonem, or bowel obstruciton. Ultrasound abdomen reveals multiple gallstones, sludge however negative for signs of acute cholecystitis. CBD 5mm. ASSESSMENT AND PLAN: Patient is a 34yom with hx of morbid obesity, presents with complaint of abdominal pain and was found to have abdominal abscesses with appendicitis. #POD#1 s/p IR drainage placement due to Abdominal abscess, appendicitis: On IV zosyn , ID onthe case, surgery and IR on the case #Morbid obesity: wash worker consult apprecited ,clear liquid diet DVt px: SCDs bilateral lower extremities. will hold off on Ac since for possible sx vs IR procedure
[2020-01-19] MEDS: ACETAMINOPHEN 1000 MG/100 ML VIAL (NON FORMULARY) IVPB PRN (22:41)
[2020-01-20] MEDS ORDERED: PIPERACILLIN/TAZOBACTAM 3.375 GM VIAL IVPB ONE ×3 (01:20→16:59)
[2020-01-20] MEDS ORDERED: DEXTROSE 5%-WATER - 50 ML IVPB ONE ×3 (01:21→16:59)
[2020-01-20] MEDS: PIPERACILLIN/TAZOB 3.375 GM 3.375 GM in DEXTROSE 5%-WATER - 50 ML IVPB SCH ×3 (01:26→17:05)
[2020-01-20] MEDS: DEXTROSE 5%-NORMAL SALINE 1,000 ML IV SCH (01:28)
[2020-01-20] MEDS: MORPHINE SULFATE 2 MG/ML VIAL IVPUSH PRN ×3 (02:40→15:10)
[2020-01-20 06:55] LABS: BLOOD UREA NITROGEN 7.4 mg/dL (7-18); GLUCOSE,RANDOM 133 mg/dL (74-106)
[2020-01-20 06:56] LABS: CALCIUM 8.1 mg/dL (8.5-10.1); CHLORIDE 102 mmol/L (98-107); CO2 24 mmol/L (21-32); CREATININE 0.6 mg/dL (0.55-1.3); POTASSIUM 3.9 mmol/L (3.5-5.1); SODIUM 135 mmol/L (136-145)
[2020-01-20 06:57] LABS: ALBUMIN 2.8 g/dl (3.4-5.0); BASO % 0.4 % (0-2.0); BILIRUBIN,TOTAL 0.6 mg/dL (0.2-1); EOS % 0.5 % (0-4.5); HEMATOCRIT 40.4 % (35.4-49); HEMOGLOBIN 13.7 GM/dL (11.7-16.9); LYMPH % 4.3 % (8-40); MAGNESIUM 2.1 mg/dL (1.8-2.4); MCH 29.5 pg (25.7-33.7); MEAN CELL VOLUME 86.9 fl (80-96); MEAN PLT VOLUME 7.5 fl (7.5-11.1); MONO % 2.6 % (3.8-10.2); NEUT % 92.2 % (42.8-82.8); PHOSPHOROUS 2.5 mg/dL (2.5-4.9); PLATELET COUNT 302 K/MM3 (134-434); RBC 4.65 M/mm3 (4.00-5.60); RDW 12.6 % (11.9-15.9); TOT PROT 6.8 g/dl (6.4-8.2); WHITE BLOOD COUNT 11.7 K/mm3 (4.0-10.0)
[2020-01-20 06:58] LABS: SGOT/AST 38 U/L (15-37); SGPT/ALT 59 U/L (13-61)
[2020-01-20 08:11] LABS: ALK PHOS 187 U/L (45-117)
[2020-01-20] MEDS ORDERED: MELATONIN 5 MG TABLETS PO PRN ×2 (09:38→15:01)
[2020-01-20] MEDS ORDERED: DEXTROSE 5%-NORMAL SALINE 1,000 ML IV SCH (09:45)
[2020-01-20 10:03] LABS: ANISOCYTOSIS 0; MACROCYTOSIS 0; PLATELET ESTIMATE NORMAL
--- NOTE | 2020-01-20 10:35 | PN ---
Physical Exam: SUBJECTIVE: Patient seen and examined with Dr. Maza Pt reports last night felt chills, pain at drain site, +flatus and having BMs, voiding without issues, wants to drink water, Denies: CP, SOB, N/V OBJECTIVE: Vital Signs Temperature 99.1 F 01/20/20 06:41 Pulse Rate 109 H 01/20/20 06:41 Respiratory Rate 22 H 01/20/20 06:41 Blood Pressure 145/88 01/20/20 06:41 O2 Sat by Pulse Oximetry (%) 94 L 01/20/20 06:41 GENERAL: The patient is awake, alert, and fully oriented, in no acute distress. Resp: unlabored breathing on RA ABDOMEN: Soft, nontender, nondistended, obese, IR drain with purulent green output, no peritoneal signs EXTREMITIES: warm, well-perfused, no edema. Laboratory Results - last 24 hr 01/17/20 01/20/20 01/20/20 19:45 04:45 04:45 WBC 11.7 H RBC 4.65 Hgb 13.7 Hct 40.4 MCV 86.9 MCH 29.5 MCHC 34.0 RDW 12.6 Plt Count 302 MPV 7.5 Absolute Neuts (auto) 10.8 H Neutrophils % 92.2 H Neutrophils % (Manual) 85.3 H Band Neutrophils % 2.0 Lymphocytes % 4.3 L D Lymphocytes % (Manual) 6.9 L Monocytes % 2.6 L Monocytes % (Manual) 2 L Eosinophils % 0.5 Eosinophils % (Manual) 1.9 Basophils % 0.4 D Basophils % (Manual) 0.0 Myelocytes % (Man) 2 Promyelocytes % (Man) 0 Blast Cells % (Manual) 0 Nucleated RBC % 0 Metamyelocytes 0 Hypochromia 0 Platelet Estimate Normal Polychromasia 0 Poikilocytosis 0 Anisocytosis 0 Microcytosis 0 Macrocytosis 0 Sodium 135 L Potassium 3.9 Chloride 102 Carbon Dioxide 24 Anion Gap No Result Required. BUN 7.4 Creatinine 0.6 Est GFR (CKD-EPI)AfAm 150.97 Est GFR (CKD-EPI)NonAf 130.26 Random Glucose 133 H Calcium 8.1 L Phosphorus 2.5 Magnesium 2.1 Total Bilirubin 0.6 AST 38 H ALT 59 Alkaline Phosphatase 187 H Total Protein 6.8 Albumin 2.8 L COVID-19 (JENNIFER) Not detected Active Medications Generic Name Dose Route Start Last Admin Trade Name Gorge PRN Reason Stop Dose Admin Acetaminophen 1,000 mg 01/17/20 17:27 01/19/20 22:41 Ofirmev Injection - IVPB 1,000 mg Q6H PRN Administration PAIN LEVEL 1-5 Piperacillin Sod/Tazobactam 50 mls @ 100 mls/hr 01/18/20 18:00 01/20/20 09:33 Sod 3.375 gm/ Dextrose IVPB 100 mls/hr Q8H-IV LEIDY Administration Protocol Dextrose/Sodium Chloride 1,000 mls @ 100 mls/hr 01/19/20 13:15 01/20/20 01:28 D5-Ns - IV 01/20/20 23:14 100 mls/hr ASDIR LEIDY Administration Dextrose/Sodium Chloride 1,000 mls @ 100 mls/hr 01/20/20 09:45 D5-Ns - IV 01/20/20 19:44 ASDIR LEIDY Metronidazole 500 mg in 100 mls @ 100 mls/hr 01/20/20 10:15 Flagyl 500mg Premixed Ivpb - IVPB Q8H-IV LEIDY Melatonin 5 mg 01/20/20 09:38 Melatonin PO HS PRN INSOMNIA Morphine Sulfate 2 mg 01/18/20 12:23 01/20/20 09:33 Morphine Sulfate IVPUSH 2 mg Q3H PRN Administration PAIN LEVEL 7 - 10 ASSESSMENT/PLAN: 34 y/o M w/ PMHx morbid obesity, a/w abdominal pain. CT scan revealing rlq abscess consistent with perforated appendicitis. Now s/p IR drainage on 01/18/2020. Now febrile to Tmax 101.8, with leukocytosis downtrending Vitals: febrile overnight 101.8, f/u blood cultures Diet: advance to clears Continue Abx as per ID: Zosyn, flagyl Monitor I&Os: IR drain [id number] Drain management per IR labs: WBC 11.7-leukocytosis downtrending, H&H stable, pain control PRN Plan for repeat CT scan 01/24/20 Serial abdominal exams d/w Dr. Maza <Antelmo Chau - Last Filed: 01/20/20 10:38> Physical Exam: Attending Surgeon: I personally saw and examined the patient. My examination reveals a patient with complicated appendicitis I discussed the case with the surgical PA and agree with their findings and plan of care with any exceptions as noted. ~ Drew Maza MD, FACS <Drew Maza - Last Filed: 01/21/20 16:06>
[2020-01-20] MEDS ORDERED: LACTATED RINGERS SOLUTION 1,000 ML/1,000 ML INFUS.BAG IV SCH (11:15)
--- NOTE | 2020-01-20 12:24 | PN ---
Progress Note, Physician History of Present Illness: stable no new issues - Current Medication List Current Medications: Active Medications Acetaminophen (Ofirmev Injection -) 1,000 mg IVPB Q6H PRN PRN Reason: PAIN LEVEL 1-5 Last Admin: 01/19/20 22:41 Dose: 1,000 mg Documented by: Heparin Sodium (Porcine) (Heparin -) 5,000 unit SQ TID LEIDY Piperacillin Sod/Tazobactam (Sod 3.375 gm/ Dextrose) 50 mls @ 100 mls/hr IVPB Q8H-IV LEIDY; Protocol Last Admin: 01/20/20 09:33 Dose: 100 mls/hr Documented by: Metronidazole (Flagyl 500mg Premixed Ivpb -) 500 mg in 100 mls @ 100 mls/hr IVPB Q8H-IV LEIDY Last Admin: 01/20/20 10:57 Dose: 100 mls/hr Documented by: Lactated Ringer's (Lactated Ringers Solution) 1,000 ml in 1,000 mls @ 125 mls/hr IV ASDIR LEIDY Last Admin: 01/20/20 11:47 Dose: 125 mls/hr Documented by: Melatonin (Melatonin) 5 mg PO HS PRN PRN Reason: INSOMNIA Morphine Sulfate (Morphine Sulfate) 2 mg IVPUSH Q3H PRN PRN Reason: PAIN LEVEL 7 - 10 Last Admin: 01/20/20 09:33 Dose: 2 mg Documented by: - Objective Vital Signs: Vital Signs Temperature 98.6 F 01/20/20 10:08 Pulse Rate 108 H 01/20/20 10:08 Respiratory Rate 20 01/20/20 10:08 Blood Pressure 148/86 01/20/20 10:08 O2 Sat by Pulse Oximetry (%) 96 01/20/20 10:08 Constitutional: Yes: No Distress Cardiovascular: Yes: S1, S2 Respiratory: Yes: Regular, CTA Bilaterally Gastrointestinal: Yes: Normal Bowel Sounds, Soft, Other (drain in place) Musculoskeletal: Yes: WNL Extremities: Yes: WNL Wound/Incision: Yes: Dressing Dry and Intact Neurological: Yes: Alert, Oriented Psychiatric: Yes: Alert, Oriented Labs: CBC, BMP 01/20/20 04:45 01/20/20 04:45 INR, PTT INR 1.39 (0.83-1.09) H 01/18/20 07:45 Assessment/Plan 34 year old male with history of morbid obesity, presents with complaint of abdominal pain. Abdominal abscess, appendicitis Morbid obesity peritonitis plan ct abx monitor drainage rest as per the team
[2020-01-20] MEDS: HEPARIN NA (PORCINE) 5,000 UNITS/ML 1ML VIAL SQ SCH ×2 (15:07→21:11)
[2020-01-20] MEDS: LACTATED RINGERS SOLUTION 1,000 ML/1,000 ML INFUS.BAG IV SCH ×2 (15:08→21:00)
--- NOTE | 2020-01-20 15:30 | PN ---
Physical Exam: SUBJECTIVE: Patient seen and examined at bedside. overnight abdominal pain 10/10 and chills. able to urinate and pass gas. had 1 bowel movement. OBJECTIVE: Vital Signs Period Temp Pulse Resp BP Sys/Marinelli Pulse Ox Last 24 Hr 98 F-101.8 F 85-140 18-30 99-154/65-92 94-96 GENERAL: The patient is awake, alert, and fully oriented, in mild distress HEAD: Normocephalic, atraumatic. EYES: PERRL, extraocular movements intact, sclera anicteric, conjunctiva clear. ENT: Oropharynx clear, without erythema or exudates. Moist mucous membranes. NECK: Trachea midline, full range of motion. Supple without lymphadenopathy. LUNGS: Breath sounds equal, clear to auscultation bilaterally. No wheezes, no crackles. No accessory muscle use. HEART: Regular rate and rhythm. S1, S2 without murmur, rub or gallop. ABDOMEN: Obese abdomen, non distended. TPP in all quadrants. BS + in all 4 Quadrants. Drain is in place-draining Green/brown EXTREMITIES: 2+ radial, dorsalis pedis pulses bilaterally. Warm, well-perfused. NEUROLOGICAL: Cranial nerves II through XII grossly intact. Normal speech. No gross focal deficits. SKIN: Warm, dry. Laboratory Results - last 24 hr 01/17/20 01/20/20 01/20/20 19:45 04:45 04:45 WBC 11.7 H RBC 4.65 Hgb 13.7 Hct 40.4 MCV 86.9 MCH 29.5 MCHC 34.0 RDW 12.6 Plt Count 302 MPV 7.5 Absolute Neuts (auto) 10.8 H Neutrophils % 92.2 H Neutrophils % (Manual) 85.3 H Band Neutrophils % 2.0 Lymphocytes % 4.3 L D Lymphocytes % (Manual) 6.9 L Monocytes % 2.6 L Monocytes % (Manual) 2 L Eosinophils % 0.5 Eosinophils % (Manual) 1.9 Basophils % 0.4 D Basophils % (Manual) 0.0 Myelocytes % (Man) 2 Promyelocytes % (Man) 0 Blast Cells % (Manual) 0 Nucleated RBC % 0 Metamyelocytes 0 Hypochromia 0 Platelet Estimate Normal Polychromasia 0 Poikilocytosis 0 Anisocytosis 0 Microcytosis 0 Macrocytosis 0 Sodium 135 L Potassium 3.9 Chloride 102 Carbon Dioxide 24 Anion Gap No Result Required. BUN 7.4 Creatinine 0.6 Est GFR (CKD-EPI)AfAm 150.97 Est GFR (CKD-EPI)NonAf 130.26 Random Glucose 133 H Calcium 8.1 L Phosphorus 2.5 Magnesium 2.1 Total Bilirubin 0.6 AST 38 H ALT 59 Alkaline Phosphatase 187 H Total Protein 6.8 Albumin 2.8 L COVID-19 (JENNIFER) Not detected Active Medications Generic Name Dose Route Start Last Admin Trade Name Freq PRN Reason Stop Dose Admin Acetaminophen 1,000 mg 01/17/20 17:27 01/19/20 22:41 Ofirmev Injection - IVPB 1,000 mg Q6H PRN Administration PAIN LEVEL 1-5 Heparin Sodium (Porcine) 5,000 unit 01/20/20 14:00 01/20/20 15:07 Heparin - SQ 5,000 unit TID LEIDY Administration Piperacillin Sod/Tazobactam 50 mls @ 100 mls/hr 01/18/20 18:00 01/20/20 09:33 Sod 3.375 gm/ Dextrose IVPB 100 mls/hr Q8H-IV LEIDY Administration Protocol Metronidazole 500 mg in 100 mls @ 100 mls/hr 01/20/20 11:00 01/20/20 10:57 Flagyl 500mg Premixed Ivpb - IVPB 100 mls/hr Q8H-IV LEIDY Administration Lactated Ringer's 1,000 ml in 1,000 mls @ 150 mls/hr 01/20/20 15:03 01/20/20 15:08 Lactated Ringers Solution IV 150 mls/hr ASDIR LEIDY Administration Melatonin 10 mg 01/20/20 15:01 Melatonin PO HS PRN INSOMNIA Morphine Sulfate 2 mg 01/18/20 12:23 01/20/20 15:10 Morphine Sulfate IVPUSH 2 mg Q3H PRN Administration PAIN LEVEL 7 - 10 CTAB: A large approximately 10 x 7 cm abscess is seen within the mesentery centrally at the level of lower abdomen abutting the cecum and appendix. The appendix is visualized along the right lateral border of this abscess appears slightly th ickened which could be on the basis of acute appendicitis versus on a reactive basis. Trace pelvic free fluid. Probable diffuse hepatic steatosis. Mild splenomegaly. US Abdomen: Gallstones and gallbladder sludge with no sonographic evidence of cholecystitis. Fatty infiltration of the liver. ASSESSMENT/PLAN: 34 Y M with a PMH of morbid obesity, presents with abdominal pain, CTAP revealed 10 x 7 cm abscess abutting the cecum and appendix + acute appendicitis, admitted for Appendicitis #Sepsis 2/2 Appendicitis and intra-abdominal abscess #Appendicitis #abscess abutting cecum, and appendix - Last night: Tmax 101.8(rectal), Hr 140 with leukocytosis 11.7 - abscess likely 2/2 to ruptured appendix 2/2 to appendicitis - CTAB and US abdomen as noted above - Surgery, is consulted, recs appreciated Advanced to Clear liquid Diet Plan for repeat CT scan 01/24/20 - s/p IR abscess Drainage with Drained 230ml of green/brown fluids in 24hrs - ID, Dr. 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, pending eval - [place] [facility] [place] (No PCP for >7 years) - HbA1c 5.3, Lipid pannel: Cholesterol 156, LDL 103, HDL 34, TSH 1.59, FT4 1.34 FEN - D5W + NS @ 100 mls/hr - Will continue to monitor electrolytes - Clear Liquid diet DVT ppx - Heparin 5000 SQ for today and will switch to Lovenox 40mg SQ tomorrow Dispo - Will continue to monitor in [place] Visit type - Emergency Visit Emergency Visit: Yes ED Registration Date: 01/17/20 Care time: The patient presented to the Emergency Department on the above date and was hospitalized for further evaluation of their emergent condition. - New Patient This patient is new to me today: No - Critical Care Critical Care patient: No - Discharge Referral Referred to [facility] Med P.C[facility] No ATTENDING PHYSICIAN STATEMENT I saw and evaluated the patient. I reviewed the resident's note and discussed the case with the resident. I agree with the resident's findings and plan as documented. SUBJECTIVE: OBJECTIVE: ASSESSMENT AND PLAN:
--- NOTE | 2020-01-20 18:59 | PN ---
Teaching Attending Note Name of Resident: Karol Prince ATTENDING PHYSICIAN STATEMENT I saw and evaluated the patient. I reviewed the resident's note and discussed the case with the resident. I agree with the resident's findings and plan as documented. SUBJECTIVE: Feels better post IR procedure OBJECTIVE: Vital Signs Temperature 98.7 F 01/20/20 14:46 Pulse Rate 110 H 01/20/20 14:46 Respiratory Rate 20 01/20/20 14:46 Blood Pressure 154/92 01/20/20 14:46 O2 Sat by Pulse Oximetry (%) 94 L 01/20/20 14:46 PE:per resident's note + drainage CBCD WBC 11.7 K/mm3 (4.0-10.0) H 01/20/20 04:45 RBC 4.65 M/mm3 (4.00-5.60) 01/20/20 04:45 Hgb 13.7 GM/dL (11.7-16.9) 01/20/20 04:45 Hct 40.4 % (35.4-49) 01/20/20 04:45 MCV 86.9 fl (80-96) 01/20/20 04:45 MCHC 34.0 g/dl (32.0-35.9) 01/20/20 04:45 RDW 12.6 % (11.9-15.9) 01/20/20 04:45 Plt Count 302 K/MM3 (134-434) 01/20/20 04:45 MPV 7.5 fl (7.5-11.1) 01/20/20 04:45 CMP Sodium 135 mmol/L (136-145) L 01/20/20 04:45 Potassium 3.9 mmol/L (3.5-5.1) 01/20/20 04:45 Chloride 102 mmol/L (98-107) 01/20/20 04:45 Carbon Dioxide 24 mmol/L (21-32) 01/20/20 04:45 Anion Gap No Result Required. 01/20/20 04:45 BUN 7.4 mg/dL (7-18) 01/20/20 04:45 Creatinine 0.6 mg/dL (0.55-1.3) 01/20/20 04:45 Random Glucose 133 mg/dL (74-106) H 01/20/20 04:45 Calcium 8.1 mg/dL (8.5-10.1) L 01/20/20 04:45 Total Bilirubin 0.6 mg/dL (0.2-1) 01/20/20 04:45 AST 38 U/L (15-37) H 01/20/20 04:45 ALT 59 U/L (13-61) 01/20/20 04:45 Alkaline Phosphatase 187 U/L (45-117) H 01/20/20 04:45 Total Protein 6.8 g/dl (6.4-8.2) 01/20/20 04:45 Albumin 2.8 g/dl (3.4-5.0) L 01/20/20 04:45 CARDIAC ENZYMES Creatine Kinase 75 U/L (26-308) 01/17/20 13:05 Troponin I < 0.02 ng/ml (0.00-0.05) 01/17/20 13:05 Current Medications Generic Name Dose Route Start Last Admin Trade Name Freq PRN Reason Stop Dose Admin Acetaminophen 1,000 mg 01/17/20 17:27 01/19/20 22:41 Ofirmev Injection - IVPB 1,000 mg Q6H PRN Administration PAIN LEVEL 1-5 Heparin Sodium (Porcine) 5,000 unit 01/20/20 14:00 01/20/20 15:07 Heparin - SQ 5,000 unit TID LEIDY Administration Piperacillin Sod/Tazobactam 50 mls @ 100 mls/hr 01/18/20 18:00 01/20/20 17:05 Sod 3.375 gm/ Dextrose IVPB 100 mls/hr Q8H-IV LEIDY Administration Protocol Metronidazole 500 mg in 100 mls @ 100 mls/hr 01/20/20 11:00 01/20/20 17:05 Flagyl 500mg Premixed Ivpb - IVPB 100 mls/hr Q8H-IV LEIDY Administration Lactated Ringer's 1,000 ml in 1,000 mls @ 150 mls/hr 01/20/20 15:03 01/20/20 15:08 Lactated Ringers Solution IV 150 mls/hr ASDIR LEIDY Administration Melatonin 10 mg 01/20/20 15:01 Melatonin PO HS PRN INSOMNIA Morphine Sulfate 2 mg 01/18/20 12:23 01/20/20 15:10 Morphine Sulfate IVPUSH 2 mg Q3H PRN Administration PAIN LEVEL 7 - 10 Home Medications Medication Instructions Recorded NK [No Known Home Medication] 01/17/20 ASSESSMENT AND PLAN: Patient is a 34yom with hx of morbid obesity, presents with complaint of abdominal pain and was found to have abdominal abscesses with appendicitis. 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 on heparin sq
[2020-01-20] MEDS: ACETAMINOPHEN 1000 MG/100 ML VIAL (NON FORMULARY) IVPB PRN (21:17)
[2020-01-20 23:59] VITALS: BMI 41.0
[2020-01-21] MEDS ORDERED: PIPERACILLIN/TAZOBACTAM 3.375 GM VIAL IVPB ONE ×2 (00:49→09:39)
[2020-01-21] MEDS ORDERED: DEXTROSE 5%-WATER - 50 ML IVPB ONE ×2 (00:50→09:39)
[2020-01-21] MEDS: PIPERACILLIN/TAZOB 3.375 GM 3.375 GM in DEXTROSE 5%-WATER - 50 ML IVPB SCH ×3 (01:00→18:56)
[2020-01-21] MEDS: LACTATED RINGERS SOLUTION 1,000 ML/1,000 ML INFUS.BAG IV SCH ×2 (04:30→15:00)
[2020-01-21] MEDS: HEPARIN NA (PORCINE) 5,000 UNITS/ML 1ML VIAL SQ SCH ×2 (05:19→13:43)
[2020-01-21 08:51] LABS: BASO % 0.5 % (0-2.0); EOS % 0.1 % (0-4.5); HEMATOCRIT 37.8 % (35.4-49); HEMOGLOBIN 12.8 GM/dL (11.7-16.9); LYMPH % 4.8 % (8-40); MCH 29.4 pg (25.7-33.7); MCHC 33.8 g/dl (32.0-35.9); MEAN CELL VOLUME 86.9 fl (80-96); MEAN PLT VOLUME 7.3 fl (7.5-11.1); MONO % 6.1 % (3.8-10.2); NEUT % 88.5 % (42.8-82.8); PLATELET COUNT 247 K/MM3 (134-434); RBC 4.35 M/mm3 (4.00-5.60); RDW 12.7 % (11.9-15.9); WHITE BLOOD COUNT 18.9 K/mm3 (4.0-10.0)
[2020-01-21 09:27] LABS: ALBUMIN 2.3 g/dl (3.4-5.0); BILIRUBIN,TOTAL 0.8 mg/dL (0.2-1); BLOOD UREA NITROGEN 6.7 mg/dL (7-18); CALCIUM 8.2 mg/dL (8.5-10.1); CREATININE 0.6 mg/dL (0.55-1.3); MAGNESIUM 1.9 mg/dL (1.8-2.4); PHOSPHOROUS 3.3 mg/dL (2.5-4.9); POTASSIUM 3.4 mmol/L (3.5-5.1); TOT PROT 6.3 g/dl (6.4-8.2)
[2020-01-21] MEDS: KCL 10 MEQ IVPB 10 MEQ/100 ML INFUS.BAG IVPB SCH ×2 (11:50→12:42)
--- NOTE | 2020-01-21 12:34 | PN ---
Progress Note, Physician History of Present Illness: starting to feel better drainage tube still draining - Current Medication List Current Medications: Active Medications Acetaminophen (Ofirmev Injection -) 1,000 mg IVPB Q6H PRN PRN Reason: PAIN LEVEL 1-5 Last Admin: 01/20/20 21:17 Dose: 1,000 mg Documented by: Heparin Sodium (Porcine) (Heparin -) 5,000 unit SQ TID LEIDY Last Admin: 01/21/20 05:19 Dose: 5,000 unit Documented by: Piperacillin Sod/Tazobactam (Sod 3.375 gm/ Dextrose) 50 mls @ 100 mls/hr IVPB Q8H-IV LEIDY; Protocol Last Admin: 01/21/20 10:50 Dose: 100 mls/hr Documented by: Metronidazole (Flagyl 500mg Premixed Ivpb -) 500 mg in 100 mls @ 100 mls/hr IVPB Q8H-IV LEIDY Last Admin: 01/21/20 09:52 Dose: 100 mls/hr Documented by: Lactated Ringer's (Lactated Ringers Solution) 1,000 ml in 1,000 mls @ 150 mls/hr IV ASDIR LEIDY Last Admin: 01/21/20 04:30 Dose: 150 mls/hr Documented by: Melatonin (Melatonin) 10 mg PO HS PRN PRN Reason: INSOMNIA Last Admin: 01/20/20 21:12 Dose: 10 mg Documented by: - Objective Vital Signs: Vital Signs Temperature 99.6 F 01/21/20 10:00 Pulse Rate 141 H 01/21/20 10:00 Respiratory Rate 18 01/21/20 10:00 Blood Pressure 144/88 01/21/20 10:00 O2 Sat by Pulse Oximetry (%) 93 L 01/21/20 10:00 Constitutional: Yes: Calm, Mild Distress, Obese HENT: Yes: Atraumatic Neck: Yes: Supple, Trachea Midline Cardiovascular: Yes: Regular Rate and Rhythm Respiratory: Yes: Regular, CTA Bilaterally Gastrointestinal: Yes: Normal Bowel Sounds, Soft Musculoskeletal: Yes: WNL Extremities: Yes: WNL Neurological: Yes: Alert, Oriented Psychiatric: Yes: Alert, Oriented Labs: CBC, BMP 01/21/20 08:15 01/21/20 08:15 INR, PTT INR 1.39 (0.83-1.09) H 01/18/20 07:45 Assessment/Plan 34 year old male with history of morbid obesity, presents with complaint of abdominal pain. Abdominal abscess, appendicitis Morbid obesity peritonitis plan ct abx monitor drainage rest as per the team
[2020-01-21] MEDS: ACETAMINOPHEN 1000 MG/100 ML VIAL (NON FORMULARY) IVPB PRN (13:57)
--- NOTE | 2020-01-21 15:52 | PN ---
Teaching Attending Note Name of Resident: Karol Prince ATTENDING PHYSICIAN STATEMENT I saw and evaluated the patient. I reviewed the resident's note and discussed the case with the resident. I agree with the resident's findings and plan as documented. SUBJECTIVE: Patient is feeling better. OBJECTIVE: Vital Signs Temperature 100.1 F H 01/21/20 13:56 Pulse Rate 113 H 01/21/20 13:56 Respiratory Rate 20 01/21/20 13:56 Blood Pressure 142/85 01/21/20 13:56 O2 Sat by Pulse Oximetry (%) 93 L 01/21/20 10:00 PE: pe resident's note + drainage CBCD WBC 18.9 K/mm3 (4.0-10.0) H 01/21/20 08:15 RBC 4.35 M/mm3 (4.00-5.60) 01/21/20 08:15 Hgb 12.8 GM/dL (11.7-16.9) 01/21/20 08:15 Hct 37.8 % (35.4-49) 01/21/20 08:15 MCV 86.9 fl (80-96) 01/21/20 08:15 MCHC 33.8 g/dl (32.0-35.9) 01/21/20 08:15 RDW 12.7 % (11.9-15.9) 01/21/20 08:15 Plt Count 247 K/MM3 (134-434) 01/21/20 08:15 MPV 7.3 fl (7.5-11.1) L 01/21/20 08:15 CMP Sodium 134 mmol/L (136-145) L 01/21/20 08:15 Potassium 3.4 mmol/L (3.5-5.1) L 01/21/20 08:15 Chloride 100 mmol/L (98-107) 01/21/20 08:15 Carbon Dioxide 25 mmol/L (21-32) 01/21/20 08:15 Anion Gap 9 MMOL/L (8-16) 01/21/20 08:15 BUN 6.7 mg/dL (7-18) L 01/21/20 08:15 Creatinine 0.6 mg/dL (0.55-1.3) 01/21/20 08:15 Random Glucose 116 mg/dL (74-106) H 01/21/20 08:15 Calcium 8.2 mg/dL (8.5-10.1) L 01/21/20 08:15 Total Bilirubin 0.8 mg/dL (0.2-1) 01/21/20 08:15 AST 28 U/L (15-37) 01/21/20 08:15 ALT 50 U/L (13-61) 01/21/20 08:15 Alkaline Phosphatase 169 U/L (45-117) H 01/21/20 08:15 Total Protein 6.3 g/dl (6.4-8.2) L 01/21/20 08:15 Albumin 2.3 g/dl (3.4-5.0) L 01/21/20 08:15 CARDIAC ENZYMES Creatine Kinase 75 U/L (26-308) 01/17/20 13:05 Troponin I < 0.02 ng/ml (0.00-0.05) 01/17/20 13:05 Current Medications Generic Name Dose Route Start Last Admin Trade Name Freq PRN Reason Stop Dose Admin Acetaminophen 1,000 mg 01/17/20 17:27 01/21/20 13:57 Ofirmev Injection - IVPB 1,000 mg Q6H PRN Administration PAIN LEVEL 1-5 Heparin Sodium (Porcine) 5,000 unit 01/20/20 14:00 01/21/20 13:43 Heparin - SQ 5,000 unit TID LEIDY Administration Piperacillin Sod/Tazobactam 50 mls @ 100 mls/hr 01/18/20 18:00 01/21/20 10:50 Sod 3.375 gm/ Dextrose IVPB 100 mls/hr Q8H-IV LEIDY Administration Protocol Metronidazole 500 mg in 100 mls @ 100 mls/hr 01/20/20 11:00 01/21/20 09:52 Flagyl 500mg Premixed Ivpb - IVPB 100 mls/hr Q8H-IV LEIDY Administration Lactated Ringer's 1,000 ml in 1,000 mls @ 150 mls/hr 01/20/20 15:03 01/21/20 15:00 Lactated Ringers Solution IV 150 mls/hr ASDIR LEIDY Administration Melatonin 10 mg 01/20/20 15:01 01/20/20 21:12 Melatonin PO 10 mg HS PRN Administration INSOMNIA Home Medications Medication Instructions Recorded NK [No Known Home Medication] 01/17/20 Microbiology 01/18/20 16:30 Peritoneal Fluid AFB Smear Concentration - Final 01/18/20 16:30 Peritoneal Fluid Mycobacterial Culture - Preliminary 01/18/20 16:30 Peritoneal Fluid Gram Stain - Final 01/18/20 16:30 Peritoneal Fluid Body Fluid Culture - Preliminary Pseudomonas Aeruginosa Klebsiella Pneumoniae Escherichia Coli Enterococcus Faecium Streptococcus Species#2 01/18/20 16:30 Peritoneal Fluid Anaerobic Culture - Preliminary Pending Organism 01/20/20 04:45 Urine - Urine Clean Catch Urine Culture - Final NO GROWTH OBTAINED 01/20/20 04:45 Blood - Peripheral Venous Blood Culture - Preliminary NO GROWTH OBTAINED AFTER 24 HOURS, INCUBATION TO CONTINUE FOR 4 DAYS. 01/20/20 04:45 Blood - Peripheral Venous Blood Culture - Preliminary NO GROWTH OBTAINED AFTER 24 HOURS, INCUBATION TO CONTINUE FOR 4 DAYS. 01/17/20 16:15 Blood - Peripheral Venous Blood Culture - Preliminary NO GROWTH OBTAINED AFTER 72 HOURS, INCUBATION TO CONTINUE FOR 2 DAYS. 01/17/20 16:15 Blood - Peripheral Venous Blood Culture - Preliminary NO GROWTH OBTAINED AFTER 72 HOURS, INCUBATION TO CONTINUE FOR 2 DAYS. ASSESSMENT AND PLAN: Patient is a 34yom with hx of morbid obesity, presents with complaint of abdominal pain and was found to have abdominal abscesses with appendicitis. 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 DVt px: SCDs bilateral lower extremities. hep sq continue
--- NOTE | 2020-01-21 16:12 | PN ---
Physical Exam: SUBJECTIVE: Patient seen and examined at bedside. Vomited 450ml of greenish fluids, once overnight. No fevers. some chills OBJECTIVE: Vital Signs Period Temp Pulse Resp BP Sys/Marinelli Pulse Ox Last 24 Hr 98.9 F-100.1 F 113-141 18-20 140-148/76-94 93-95 GENERAL: The patient is awake, alert, and fully oriented, in mild distress HEAD: Normocephalic, atraumatic. EYES: PERRL, extraocular movements intact, sclera anicteric, conjunctiva clear. ENT: Oropharynx clear, without erythema or exudates. Moist mucous membranes. NECK: Trachea midline, full range of motion. Supple without lymphadenopathy. LUNGS: Breath sounds equal, clear to auscultation bilaterally. No wheezes, no crackles. No accessory muscle use. HEART: Regular rate and rhythm. S1, S2 without murmur, rub or gallop. ABDOMEN: Obese abdomen, non distended. TPP in all quadrants. BS + in all 4 Quadrants. Drain is in place-draining Green/brown EXTREMITIES: 2+ radial, dorsalis pedis pulses bilaterally. Warm, well-perfused. NEUROLOGICAL: Cranial nerves II through XII grossly intact. Normal speech. No gross focal deficits. SKIN: Warm, dry. Laboratory Results - last 24 hr 01/21/20 01/21/20 08:15 08:15 WBC 18.9 H RBC 4.35 Hgb 12.8 Hct 37.8 MCV 86.9 MCH 29.4 MCHC 33.8 RDW 12.7 Plt Count 247 MPV 7.3 L Absolute Neuts (auto) 16.7 H Neutrophils % 88.5 H Lymphocytes % 4.8 L Monocytes % 6.1 D Eosinophils % 0.1 Basophils % 0.5 Nucleated RBC % 0 Sodium 134 L Potassium 3.4 L Chloride 100 Carbon Dioxide 25 Anion Gap 9 BUN 6.7 L Creatinine 0.6 Est GFR (CKD-EPI)AfAm 150.97 Est GFR (CKD-EPI)NonAf 130.26 Random Glucose 116 H Calcium 8.2 L Phosphorus 3.3 Magnesium 1.9 Total Bilirubin 0.8 AST 28 ALT 50 Alkaline Phosphatase 169 H Total Protein 6.3 L Albumin 2.3 L Active Medications Generic Name Dose Route Start Last Admin Trade Name Freq PRN Reason Stop Dose Admin Acetaminophen 1,000 mg 01/17/20 17:27 01/21/20 13:57 Ofirmev Injection - IVPB 1,000 mg Q6H PRN Administration PAIN LEVEL 1-5 Enoxaparin Sodium 40 mg 01/22/20 10:00 Lovenox - SQ DAILY LEIDY Heparin Sodium (Porcine) 5,000 unit 01/21/20 22:00 Heparin - SQ 01/21/20 22:01 ONCE ONE Piperacillin Sod/Tazobactam 50 mls @ 100 mls/hr 01/18/20 18:00 01/21/20 10:50 Sod 3.375 gm/ Dextrose IVPB 100 mls/hr Q8H-IV LEIDY Administration Protocol Metronidazole 500 mg in 100 mls @ 100 mls/hr 01/20/20 11:00 01/21/20 09:52 Flagyl 500mg Premixed Ivpb - IVPB 100 mls/hr Q8H-IV LEIDY Administration Lactated Ringer's 1,000 ml in 1,000 mls @ 150 mls/hr 01/20/20 15:03 01/21/20 15:00 Lactated Ringers Solution IV 150 mls/hr ASDIR LEIDY Administration Melatonin 10 mg 01/20/20 15:01 01/20/20 21:12 Melatonin PO 10 mg HS PRN Administration INSOMNIA ASSESSMENT/PLAN: 34 Y M with a PMH of morbid obesity, presents with abdominal pain, CTAP revealed 10 x 7 cm abscess abutting the cecum and appendix + acute appendicitis, admitted for Appendicitis #Sepsis 2/2 Appendicitis and intra-abdominal abscess #Appendicitis #abscess abutting cecum, and appendix - Last night: Tmax 101.8(rectal), Hr 140 with leukocytosis 11.7 - abscess likely 2/2 to ruptured appendix 2/2 to appendicitis - CTAB and US abdomen noted - Surgery, is consulted, recs appreciated Advanced to Clear liquid Diet Plan for repeat CT scan 01/24/20 - s/p IR abscess Drainage with POD # 3 Drained 15ml of green/brown fluids overnight - ID, Dr. Day is following, recs appreciated Continue Empiric treatment with IV Zosyn 3.375 D#4 Added Flagyl 500mg IV Q8H D#2 Peritoneal Fluid Cx: Prelim: Pseudomonas Aeruginosa, Klebsiella Pneumonia, E. Coli, E. Faecium, Strep species. 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 K 3.4-repleted - Clear Liquid diet DVT ppx - Heparin 5000 SQ for tonight and switch to Lovenox 40mg SQ tomorrow @ 10.00 am Dispo - Will continue to monitor in [place] Visit type - Emergency Visit Emergency Visit: Yes ED Registration Date: 01/17/20 Care time: The patient presented to the Emergency Department on the above date and was hospitalized for further evaluation of their emergent condition. - New Patient This patient is new to me today: No - Critical Care Critical Care patient: No - Discharge Referral Referred to [facility] Med [facility].C[facility] No ATTENDING PHYSICIAN STATEMENT I saw and evaluated the patient. I reviewed the resident's note and discussed the case with the resident. I agree with the resident's findings and plan as documented. SUBJECTIVE: OBJECTIVE: ASSESSMENT AND PLAN:
[2020-01-21] MEDS ORDERED: HEPARIN NA (PORCINE) 5,000 UNITS/ML 1ML VIAL SQ ONE (22:00)
[2020-01-21] MEDS ORDERED: MORPHINE SULFATE 2 MG/ML VIAL IVPUSH PRN (23:58)
[2020-01-22] MEDS ORDERED: DEXTROSE 5%-WATER - 50 ML IVPB ONE ×3 (00:59→17:33)
[2020-01-22] MEDS ORDERED: PIPERACILLIN/TAZOBACTAM 3.375 GM VIAL IVPB ONE ×3 (00:59→17:33)
[2020-01-22] MEDS: PIPERACILLIN/TAZOB 3.375 GM 3.375 GM in DEXTROSE 5%-WATER - 50 ML IVPB SCH ×3 (01:37→17:36)
[2020-01-22 08:35] LABS: BASO % 0.2 % (0-2.0); EOS % 0.2 % (0-4.5); HEMATOCRIT 37.7 % (35.4-49); HEMOGLOBIN 13.1 GM/dL (11.7-16.9); LYMPH % 5.9 % (8-40); MCH 30.5 pg (25.7-33.7); MCHC 34.8 g/dl (32.0-35.9); MEAN CELL VOLUME 87.5 fl (80-96); MEAN PLT VOLUME 7.5 fl (7.5-11.1); MONO % 5.2 % (3.8-10.2); NEUT % 88.5 % (42.8-82.8); PLATELET COUNT 267 K/MM3 (134-434); RBC 4.31 M/mm3 (4.00-5.60); WHITE BLOOD COUNT 16.2 K/mm3 (4.0-10.0)
[2020-01-22 08:55] LABS: ALBUMIN 2.4 g/dl (3.4-5.0); BLOOD UREA NITROGEN 7.2 mg/dL (7-18); CALCIUM 8.4 mg/dL (8.5-10.1); CREATININE 0.7 mg/dL (0.55-1.3); PHOSPHOROUS 2.7 mg/dL (2.5-4.9); POTASSIUM 3.5 mmol/L (3.5-5.1); TOT PROT 6.6 g/dl (6.4-8.2)
[2020-01-22] MEDS: ENOXAPARIN NA (PORCINE) 40 MG/0.4 ML DISP.SYRIN SQ SCH (09:12)
[2020-01-22] MEDS: LACTATED RINGERS SOLUTION 1,000 ML/1,000 ML INFUS.BAG IV SCH ×2 (09:58→17:36)
[2020-01-22] MEDS ORDERED: ENOXAPARIN 40 MG SQ SCH (10:00)
--- NOTE | 2020-01-22 12:47 | PN ---
Progress Note (short form) - Note Progress Note: Attending Surgeon Feels much better today VSS AF abdo-soft; flat and non tender; drain output noted Cultures noted WBC 16.2 IMP: improving clinically PLAN: Continue present tx.; advance to full liquid diet. Drew Moya MD FACS
--- NOTE | 2020-01-22 13:27 | PN ---
Progress Note, Physician History of Present Illness: Pt states he feels well. Denies abd pain/n/v. Tmax 99.2F. No specific complaints. - Current Medication List Current Medications: Active Medications Acetaminophen (Ofirmev Injection -) 1,000 mg IVPB Q6H PRN PRN Reason: PAIN LEVEL 1-5 Last Admin: 01/21/20 13:57 Dose: 1,000 mg Documented by: Enoxaparin Sodium (Lovenox -) 40 mg SQ DAILY LEIDY Last Admin: 01/22/20 09:12 Dose: 40 mg Documented by: Piperacillin Sod/Tazobactam (Sod 3.375 gm/ Dextrose) 50 mls @ 100 mls/hr IVPB Q8H-IV LEIDY; Protocol Last Admin: 01/22/20 09:12 Dose: 100 mls/hr Documented by: Metronidazole (Flagyl 500mg Premixed Ivpb -) 500 mg in 100 mls @ 100 mls/hr IVPB Q8H-IV LEIDY Last Admin: 01/22/20 09:58 Dose: 100 mls/hr Documented by: Lactated Ringer's (Lactated Ringers Solution) 1,000 ml in 1,000 mls @ 150 mls/hr IV ASDIR LEIDY Last Admin: 01/22/20 09:58 Dose: 150 mls/hr Documented by: Melatonin (Melatonin) 10 mg PO HS PRN PRN Reason: INSOMNIA Last Admin: 01/20/20 21:12 Dose: 10 mg Documented by: Morphine Sulfate (Morphine Sulfate) 2 mg IVPUSH Q3H PRN PRN Reason: PAIN LEVEL 4 - 6 - Objective Vital Signs: Vital Signs Temperature 99.2 F 01/22/20 10:00 Pulse Rate 113 H 01/22/20 10:00 Respiratory Rate 20 01/22/20 10:00 Blood Pressure 135/75 01/22/20 10:00 O2 Sat by Pulse Oximetry (%) 96 01/22/20 10:00 Constitutional: Yes: No Distress, Calm Cardiovascular: Yes: Regular Rate and Rhythm Respiratory: Yes: Regular Gastrointestinal: Yes: Normal Bowel Sounds, Soft, Abdomen, Obese, Other (+drain) Genitourinary: Yes: WNL Integumentary: Yes: WNL Neurological: Yes: Alert, Oriented Labs: CBC, BMP 01/22/20 08:05 01/22/20 08:05 INR, PTT INR 1.39 (0.83-1.09) H 01/18/20 07:45 Laboratory Last Values WBC 16.2 K/mm3 (4.0-10.0) H 01/22/20 08:05 RBC 4.31 M/mm3 (4.00-5.60) 01/22/20 08:05 Hgb 13.1 GM/dL (11.7-16.9) 01/22/20 08:05 Hct 37.7 % (35.4-49) 01/22/20 08:05 MCV 87.5 fl (80-96) 01/22/20 08:05 MCH 30.5 pg (25.7-33.7) 01/22/20 08:05 MCHC 34.8 g/dl (32.0-35.9) 01/22/20 08:05 RDW 13.0 % (11.9-15.9) 01/22/20 08:05 Plt Count 267 K/MM3 (134-434) 01/22/20 08:05 MPV 7.5 fl (7.5-11.1) 01/22/20 08:05 Absolute Neuts (auto) 14.4 K/mm3 (1.5-8.0) H 01/22/20 08:05 Neutrophils % 88.5 % (42.8-82.8) H 01/22/20 08:05 Neutrophils % (Manual) 85.3 % (42.8-82.8) H 01/20/20 04:45 Band Neutrophils % 2.0 % 01/20/20 04:45 Lymphocytes % 5.9 % (8-40) L D 01/22/20 08:05 Lymphocytes % (Manual) 6.9 % (8-40) L 01/20/20 04:45 Monocytes % 5.2 % (3.8-10.2) 01/22/20 08:05 Monocytes % (Manual) 2 % (3.8-10.2) L 01/20/20 04:45 Eosinophils % 0.2 % (0-4.5) D 01/22/20 08:05 Eosinophils % (Manual) 1.9 % (0-4.5) 01/20/20 04:45 Basophils % 0.2 % (0-2.0) 01/22/20 08:05 Basophils % (Manual) 0.0 % (0-2.0) 01/20/20 04:45 Myelocytes % (Man) 2 % (0-2) 01/20/20 04:45 Promyelocytes % (Man) 0 % (0-2) 01/20/20 04:45 Blast Cells % (Manual) 0 % (0-0) 01/20/20 04:45 Nucleated RBC % 0 % (0-0) 01/22/20 08:05 Metamyelocytes 0 % (0-2) 01/20/20 04:45 Hypochromia 0 01/20/20 04:45 Platelet Estimate Normal 01/20/20 04:45 Polychromasia 0 01/20/20 04:45 Poikilocytosis 0 01/20/20 04:45 Anisocytosis 0 01/20/20 04:45 Microcytosis 0 01/20/20 04:45 Macrocytosis 0 01/20/20 04:45 PT with INR 16.40 SEC (9.7-13.0) H 01/18/20 07:45 INR 1.39 (0.83-1.09) H 01/18/20 07:45 PTT (Actin FS) 28.2 SECONDS (25.2-36.5) 01/18/20 07:45 Sodium 136 mmol/L (136-145) 01/22/20 08:05 Potassium 3.5 mmol/L (3.5-5.1) 01/22/20 08:05 Chloride 100 mmol/L (98-107) 01/22/20 08:05 Carbon Dioxide 29 mmol/L (21-32) 01/22/20 08:05 Anion Gap 7 MMOL/L (8-16) L 01/22/20 08:05 BUN 7.2 mg/dL (7-18) 01/22/20 08:05 Creatinine 0.7 mg/dL (0.55-1.3) 01/22/20 08:05 Est GFR (CKD-EPI)AfAm 141.70 01/22/20 08:05 Est GFR (CKD-EPI)NonAf 122.26 01/22/20 08:05 Random Glucose 96 mg/dL (74-106) 01/22/20 08:05 Hemoglobin A1c % 5.3 % (4.2-6.3) 01/18/20 07:45 Calcium 8.4 mg/dL (8.5-10.1) L 01/22/20 08:05 Phosphorus 2.7 mg/dL (2.5-4.9) 01/22/20 08:05 Magnesium 2.0 mg/dL (1.8-2.4) 01/22/20 08:05 Total Bilirubin 1.0 mg/dL (0.2-1) 01/22/20 08:05 AST 17 U/L (15-37) 01/22/20 08:05 ALT 38 U/L (13-61) 01/22/20 08:05 Alkaline Phosphatase 153 U/L (45-117) H 01/22/20 08:05 Creatine Kinase 75 U/L (26-308) 01/17/20 13:05 Troponin I < 0.02 ng/ml (0.00-0.05) 01/17/20 13:05 Total Protein 6.6 g/dl (6.4-8.2) 01/22/20 08:05 Albumin 2.4 g/dl (3.4-5.0) L 01/22/20 08:05 Triglycerides 97 mg/dL (0-150) 01/18/20 07:45 Cholesterol 156 mg/dL (50-200) 01/18/20 07:45 Total LDL Cholesterol 103 mg/dL (5-100) H 01/18/20 07:45 HDL Cholesterol 34 mg/dL (40-60) L 01/18/20 07:45 Lipase 121 U/L (73-393) 01/17/20 13:05 TSH 1.59 uIU/ml (0.358-3.74) 01/18/20 07:45 Free T4 1.34 ng/dl (0.76-1.16) H 01/18/20 07:45 Urine Color Yellow 01/18/20 00:00 Urine Appearance Clear 01/18/20 00:00 Urine pH 6.5 (5.0-8.0) 01/18/20 00:00 Ur Specific [place] 1.018 (1.010-1.035) 01/18/20 00:00 Urine Protein Negative (NEGATIVE) 01/18/20 00:00 Urine Glucose (UA) Negative (NEGATIVE) 01/18/20 00:00 Urine Ketones Trace (NEGATIVE) H 01/18/20 00:00 Urine Blood Negative (NEGATIVE) 01/18/20 00:00 Urine Nitrite Negative (NEGATIVE) 01/18/20 00:00 Urine Bilirubin Negative (NEGATIVE) 01/18/20 00:00 Urine Urobilinogen 0.2 mg/dL (0.2-1.0) 01/18/20 00:00 Ur Leukocyte Esterase Negative (NEGATIVE) 01/18/20 00:00 COVID-19 (JENNIFER) Not detected (Not Detected) 01/17/20 19:45 Blood Type B POSITIVE 01/18/20 07:45 Antibody Screen Negative 01/18/20 07:45 Microbiology 01/20/20 04:45 Blood - Peripheral Venous Blood Culture - Preliminary NO GROWTH OBTAINED AFTER 48 HOURS, INCUBATION TO CONTINUE FOR 3 DAYS. 01/20/20 04:45 Blood - Peripheral Venous Blood Culture - Preliminary NO GROWTH OBTAINED AFTER 48 HOURS, INCUBATION TO CONTINUE FOR 3 DAYS. 01/17/20 16:15 Blood - Peripheral Venous Blood Culture - Preliminary NO GROWTH OBTAINED AFTER 96 HOURS, INCUBATION TO CONTINUE FOR 1 DAYS. 01/17/20 16:15 Blood - Peripheral Venous Blood Culture - Preliminary NO GROWTH OBTAINED AFTER 96 HOURS, INCUBATION TO CONTINUE FOR 1 DAYS. 01/18/20 16:30 Peritoneal Fluid AFB Smear Concentration - Final 01/18/20 16:30 Peritoneal Fluid Mycobacterial Culture - Preliminary 01/18/20 16:30 Peritoneal Fluid Gram Stain - Final 01/18/20 16:30 Peritoneal Fluid Body Fluid Culture - Preliminary Pseudomonas Aeruginosa Klebsiella Pneumoniae Escherichia Coli Enterococcus Faecium Streptococcus Species#2 01/18/20 16:30 Peritoneal Fluid Anaerobic Culture - Preliminary Pending Organism 01/20/20 04:45 Urine - Urine Clean Catch Urine Culture - Final NO GROWTH OBTAINED - ....Imaging Chest X-ray: Report Reviewed Problem List - Problems (1) Appendicitis with abscess Code(s): K35.33 - ACUTE APPENDICITIS WITH PERF AND LOC PERITONITIS, WITH ABSCS Assessment/Plan Appendicitis with multiple abscesses s/p drain placement Peritonitis Fever Leukocytosis Morbid obesity -- Pt feels well, no abd tenderness -- Tmax 99.2F, wbc improving -- continue current antibiotics, culture isolates noted
--- NOTE | 2020-01-22 18:15 | PN ---
Progress Note (short form) - Note Progress Note: Patient is better tolerating liquid diet Vital Signs Temperature 98.5 F 01/22/20 14:37 Pulse Rate 102 H 01/22/20 14:37 Respiratory Rate 20 01/22/20 14:37 Blood Pressure 142/76 01/22/20 14:37 O2 Sat by Pulse Oximetry (%) 96 01/22/20 14:37 GENERAL: The patient is awake, alert, and fully oriented, in no acute distress. HEAD: Normal with no signs of trauma. EYES: PERRL, extraocular movements intact, sclera anicteric, conjunctiva clear. ENT: Ears normal, oropharynx clear without exudates, moist mucous membranes. NECK: Trachea midline, full range of motion, supple. LUNGS: Breath sounds equal, clear to auscultation bilaterally, no wheezes, no crackles, no accessory muscle use. HEART: Regular rate and rhythm, S1, S2 without murmur, rub or gallop. ABDOMEN: Soft, NT, + drainage , large abdomen, normoactive bowel sounds, no guarding, no rebound, no hepatosplenomegaly, no masses. EXTREMITIES: 2+ pulses, warm, well-perfused, no edema. NEUROLOGICAL: Cranial nerves II through XII grossly intact. Normal speech, gait not observed. PSYCH: Normal mood, normal affect. SKIN: Warm, dry, normal turgor, no rashes or lesions noted CBCD WBC 16.2 K/mm3 (4.0-10.0) H 01/22/20 08:05 RBC 4.31 M/mm3 (4.00-5.60) 01/22/20 08:05 Hgb 13.1 GM/dL (11.7-16.9) 01/22/20 08:05 Hct 37.7 % (35.4-49) 01/22/20 08:05 MCV 87.5 fl (80-96) 01/22/20 08:05 MCHC 34.8 g/dl (32.0-35.9) 01/22/20 08:05 RDW 13.0 % (11.9-15.9) 01/22/20 08:05 Plt Count 267 K/MM3 (134-434) 01/22/20 08:05 MPV 7.5 fl (7.5-11.1) 01/22/20 08:05 CMP Sodium 136 mmol/L (136-145) 01/22/20 08:05 Potassium 3.5 mmol/L (3.5-5.1) 01/22/20 08:05 Chloride 100 mmol/L (98-107) 01/22/20 08:05 Carbon Dioxide 29 mmol/L (21-32) 01/22/20 08:05 Anion Gap 7 MMOL/L (8-16) L 01/22/20 08:05 BUN 7.2 mg/dL (7-18) 01/22/20 08:05 Creatinine 0.7 mg/dL (0.55-1.3) 01/22/20 08:05 Random Glucose 96 mg/dL (74-106) 01/22/20 08:05 Calcium 8.4 mg/dL (8.5-10.1) L 01/22/20 08:05 Total Bilirubin 1.0 mg/dL (0.2-1) 01/22/20 08:05 AST 17 U/L (15-37) 01/22/20 08:05 ALT 38 U/L (13-61) 01/22/20 08:05 Alkaline Phosphatase 153 U/L (45-117) H 01/22/20 08:05 Total Protein 6.6 g/dl (6.4-8.2) 01/22/20 08:05 Albumin 2.4 g/dl (3.4-5.0) L 01/22/20 08:05 CARDIAC ENZYMES Creatine Kinase 75 U/L (26-308) 01/17/20 13:05 Troponin I < 0.02 ng/ml (0.00-0.05) 01/17/20 13:05 Current Medications Generic Name Dose Route Start Last Admin Trade Name Freq PRN Reason Stop Dose Admin Acetaminophen 1,000 mg 01/17/20 17:27 01/21/20 13:57 Ofirmev Injection - IVPB 1,000 mg Q6H PRN Administration PAIN LEVEL 1-5 Enoxaparin Sodium 40 mg 01/22/20 10:00 01/22/20 09:12 Lovenox - SQ 40 mg DAILY LEIDY Administration Piperacillin Sod/Tazobactam 50 mls @ 100 mls/hr 01/18/20 18:00 01/22/20 17:36 Sod 3.375 gm/ Dextrose IVPB 100 mls/hr Q8H-IV LEIDY Administration Protocol Metronidazole 500 mg in 100 mls @ 100 mls/hr 01/20/20 11:00 01/22/20 09:58 Flagyl 500mg Premixed Ivpb - IVPB 100 mls/hr Q8H-IV LEIDY Administration Lactated Ringer's 1,000 ml in 1,000 mls @ 150 mls/hr 01/20/20 15:03 01/22/20 17:36 Lactated Ringers Solution IV 150 mls/hr ASDIR LEIDY Administration Melatonin 10 mg 01/20/20 15:01 01/20/20 21:12 Melatonin PO 10 mg HS PRN Administration INSOMNIA Morphine Sulfate 2 mg 01/21/20 23:58 Morphine Sulfate IVPUSH Q3H PRN PAIN LEVEL 4 - 6 Home Medications Medication Instructions Recorded NK [No Known Home Medication] 01/17/20 Microbiology 01/17/20 16:15 Blood - Peripheral Venous Blood Culture - Final NO GROWTH AFTER 5 DAYS INCUBATION 01/17/20 16:15 Blood - Peripheral Venous Blood Culture - Final NO GROWTH AFTER 5 DAYS INCUBATION 01/18/20 16:30 Peritoneal Fluid Gram Stain - Final 01/18/20 16:30 Peritoneal Fluid Body Fluid Culture - Preliminary Pseudomonas Aeruginosa Klebsiella Pneumoniae Escherichia Coli Enterococcus Faecium Streptococcus Species#2 01/18/20 16:30 Peritoneal Fluid Anaerobic Culture - Preliminary Pending Organism 01/20/20 04:45 Blood - Peripheral Venous Blood Culture - Preliminary NO GROWTH OBTAINED AFTER 48 HOURS, INCUBATION TO CONTINUE FOR 3 DAYS. 01/20/20 04:45 Blood - Peripheral Venous Blood Culture - Preliminary NO GROWTH OBTAINED AFTER 48 HOURS, INCUBATION TO CONTINUE FOR 3 DAYS. 01/18/20 16:30 Peritoneal Fluid AFB Smear Concentration - Final 01/18/20 16:30 Peritoneal Fluid Mycobacterial Culture - Preliminary 01/20/20 04:45 Urine - Urine Clean Catch Urine Culture - Final NO GROWTH OBTAINED ASSESSMENT AND PLAN: Patient is a 34yom with hx of morbid obesity, presents with complaint of abdominal pain and was found to have abdominal abscesses with appendicitis. 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 DVt px: SCDs bilateral lower extremities. hep sq continue Visit type - Emergency Visit Emergency Visit: Yes ED Registration Date: 01/17/20 Care time: The patient presented to the Emergency Department on the above date and was hospitalized for further evaluation of their emergent condition. - New Patient This patient is new to me today: No - Critical Care Critical Care patient: No - Discharge Referral Referred to [facility] No
[2020-01-23] MEDS ORDERED: PIPERACILLIN/TAZOBACTAM 3.375 GM VIAL IVPB ONE ×3 (01:22→17:34)
[2020-01-23] MEDS ORDERED: DEXTROSE 5%-WATER - 50 ML IVPB ONE ×3 (01:23→17:35)
[2020-01-23] MEDS: PIPERACILLIN/TAZOB 3.375 GM 3.375 GM in DEXTROSE 5%-WATER - 50 ML IVPB SCH ×3 (01:35→17:38)
[2020-01-23] MEDS: LACTATED RINGERS SOLUTION 1,000 ML/1,000 ML INFUS.BAG IV SCH ×3 (01:35→17:39)
[2020-01-23 08:03] LABS: BASO % 0.2 % (0-2.0); EOS % 0.6 % (0-4.5); HEMATOCRIT 33.2 % (35.4-49); HEMOGLOBIN 11.4 GM/dL (11.7-16.9); LYMPH % 8.9 % (8-40); MCH 29.6 pg (25.7-33.7); MCHC 34.4 g/dl (32.0-35.9); MEAN CELL VOLUME 85.9 fl (80-96); MEAN PLT VOLUME 7.4 fl (7.5-11.1); MONO % 7.8 % (3.8-10.2); NEUT % 82.5 % (42.8-82.8); PLATELET COUNT 203 K/MM3 (134-434); RBC 3.87 M/mm3 (4.00-5.60); RDW 12.7 % (11.9-15.9); WHITE BLOOD COUNT 10.2 K/mm3 (4.0-10.0)
[2020-01-23 08:38] LABS: ALBUMIN 2.3 g/dl (3.4-5.0); BLOOD UREA NITROGEN 7.7 mg/dL (7-18); CALCIUM 8.1 mg/dL (8.5-10.1); CREATININE 0.5 mg/dL (0.55-1.3); MAGNESIUM 2.1 mg/dL (1.8-2.4); PHOSPHOROUS 4.1 mg/dL (2.5-4.9); POTASSIUM 3.2 mmol/L (3.5-5.1)
[2020-01-23 08:40] LABS: BILIRUBIN,TOTAL 0.4 mg/dL (0.2-1); TOT PROT 5.8 g/dl (6.4-8.2)
[2020-01-23] MEDS: ENOXAPARIN NA (PORCINE) 40 MG/0.4 ML DISP.SYRIN SQ SCH (09:20)
--- NOTE | 2020-01-23 09:56 | PN ---
Progress Note (short form) - Note Progress Note: Attending Surgeon Hospital day #7 Tolerated full liquids yesterday; no c/o VSS AF T max. 99.5 abdo-soft; flat and non tender; drain output noted Cultures noted WBC 10.2 IMP: improving clinically PLAN: Continue present tx.; advance to regular diet; f/u CT scan a/p 01/24/2020. Drew Maza MD FACS
[2020-01-23] MEDS: POTASSIUM CHLORIDE TABS 20 MEQ TABLET.ER (FP) PO SCH ×2 (10:28→13:25)
--- NOTE | 2020-01-23 12:57 | PN ---
Physical Exam: SUBJECTIVE: Patient seen and examined. Complained of acid reflux that keeps him up at night. Denied nausea, vomiting. Admits to having daily BM, last one was liquid. OBJECTIVE: Vital Signs Period Temp Pulse Resp BP Sys/Marinelli Pulse Ox Last 24 Hr 98.2 F-99.5 F 92-103 20-20 125-144/75-85 93-97 GENERAL: The patient is awake, alert, and fully oriented. Not in distress HEENT: NCAT, EOMI, moist mucus membranes. LUNGS: Breath sounds equal, clear to auscultation bilaterally. No wheezes. HEART: Regular rate and rhythm. S1, S2 without murmur, rub or gallop. ABDOMEN: Obese abdomen, non distended. Nontender to palpation. Normoactive bowel sounds. JAZMINE in place. Draining pale green fluid. EXTREMITIES: Warm, well-perfused. No edema. SKIN: Warm, dry. Laboratory Last Values WBC 10.2 K/mm3 (4.0-10.0) H 01/23/20 07:18 RBC 3.87 M/mm3 (4.00-5.60) L 01/23/20 07:18 Hgb 11.4 GM/dL (11.7-16.9) L 01/23/20 07:18 Hct 33.2 % (35.4-49) L 01/23/20 07:18 MCV 85.9 fl (80-96) 01/23/20 07:18 MCH 29.6 pg (25.7-33.7) 01/23/20 07:18 MCHC 34.4 g/dl (32.0-35.9) 01/23/20 07:18 RDW 12.7 % (11.9-15.9) 01/23/20 07:18 Plt Count 203 K/MM3 (134-434) D 01/23/20 07:18 MPV 7.4 fl (7.5-11.1) L 01/23/20 07:18 Absolute Neuts (auto) 8.4 K/mm3 (1.5-8.0) H 01/23/20 07:18 Neutrophils % 82.5 % (42.8-82.8) 01/23/20 07:18 Neutrophils % (Manual) 85.3 % (42.8-82.8) H 01/20/20 04:45 Band Neutrophils % 2.0 % 01/20/20 04:45 Lymphocytes % 8.9 % (8-40) D 01/23/20 07:18 Lymphocytes % (Manual) 6.9 % (8-40) L 01/20/20 04:45 Monocytes % 7.8 % (3.8-10.2) 01/23/20 07:18 Monocytes % (Manual) 2 % (3.8-10.2) L 01/20/20 04:45 Eosinophils % 0.6 % (0-4.5) D 01/23/20 07:18 Eosinophils % (Manual) 1.9 % (0-4.5) 01/20/20 04:45 Basophils % 0.2 % (0-2.0) 01/23/20 07:18 Basophils % (Manual) 0.0 % (0-2.0) 01/20/20 04:45 Myelocytes % (Man) 2 % (0-2) 01/20/20 04:45 Promyelocytes % (Man) 0 % (0-2) 01/20/20 04:45 Blast Cells % (Manual) 0 % (0-0) 01/20/20 04:45 Nucleated RBC % 0 % (0-0) 01/23/20 07:18 Metamyelocytes 0 % (0-2) 01/20/20 04:45 Hypochromia 0 01/20/20 04:45 Platelet Estimate Normal 01/20/20 04:45 Polychromasia 0 01/20/20 04:45 Poikilocytosis 0 01/20/20 04:45 Anisocytosis 0 01/20/20 04:45 Microcytosis 0 01/20/20 04:45 Macrocytosis 0 01/20/20 04:45 PT with INR 16.40 SEC (9.7-13.0) H 01/18/20 07:45 INR 1.39 (0.83-1.09) H 01/18/20 07:45 PTT (Actin FS) 28.2 SECONDS (25.2-36.5) 01/18/20 07:45 Sodium 137 mmol/L (136-145) 01/23/20 07:18 Potassium 3.2 mmol/L (3.5-5.1) L 01/23/20 07:18 Chloride 103 mmol/L (98-107) 01/23/20 07:18 Carbon Dioxide 25 mmol/L (21-32) 01/23/20 07:18 Anion Gap 9 MMOL/L (8-16) 01/23/20 07:18 BUN 7.7 mg/dL (7-18) 01/23/20 07:18 Creatinine 0.5 mg/dL (0.55-1.3) L 01/23/20 07:18 Est GFR (CKD-EPI)AfAm 162.72 01/23/20 07:18 Est GFR (CKD-EPI)NonAf 140.40 01/23/20 07:18 Random Glucose 85 mg/dL (74-106) 01/23/20 07:18 Hemoglobin A1c % 5.3 % (4.2-6.3) 01/18/20 07:45 Calcium 8.1 mg/dL (8.5-10.1) L 01/23/20 07:18 Phosphorus 4.1 mg/dL (2.5-4.9) 01/23/20 07:18 Magnesium 2.1 mg/dL (1.8-2.4) 01/23/20 07:18 Total Bilirubin 0.4 mg/dL (0.2-1) 01/23/20 07:18 AST 15 U/L (15-37) 01/23/20 07:18 ALT 27 U/L (13-61) 01/23/20 07:18 Alkaline Phosphatase 122 U/L (45-117) H 01/23/20 07:18 Creatine Kinase 75 U/L (26-308) 01/17/20 13:05 Troponin I < 0.02 ng/ml (0.00-0.05) 01/17/20 13:05 Total Protein 5.8 g/dl (6.4-8.2) L 01/23/20 07:18 Albumin 2.3 g/dl (3.4-5.0) L 01/23/20 07:18 Triglycerides 97 mg/dL (0-150) 01/18/20 07:45 Cholesterol 156 mg/dL (50-200) 01/18/20 07:45 Total LDL Cholesterol 103 mg/dL (5-100) H 01/18/20 07:45 HDL Cholesterol 34 mg/dL (40-60) L 01/18/20 07:45 Lipase 121 U/L (73-393) 01/17/20 13:05 TSH 1.59 uIU/ml (0.358-3.74) 01/18/20 07:45 Free T4 1.34 ng/dl (0.76-1.16) H 01/18/20 07:45 Urine Color Yellow 01/18/20 00:00 Urine Appearance Clear 01/18/20 00:00 Urine pH 6.5 (5.0-8.0) 01/18/20 00:00 Ur Specific [place] 1.018 (1.010-1.035) 01/18/20 00:00 Urine Protein Negative (NEGATIVE) 01/18/20 00:00 Urine Glucose (UA) Negative (NEGATIVE) 01/18/20 00:00 Urine Ketones Trace (NEGATIVE) H 01/18/20 00:00 Urine Blood Negative (NEGATIVE) 01/18/20 00:00 Urine Nitrite Negative (NEGATIVE) 01/18/20 00:00 Urine Bilirubin Negative (NEGATIVE) 01/18/20 00:00 Urine Urobilinogen 0.2 mg/dL (0.2-1.0) 01/18/20 00:00 Ur Leukocyte Esterase Negative (NEGATIVE) 01/18/20 00:00 COVID-19 (JENNIFER) Not detected (Not Detected) 01/17/20 19:45 Blood Type B POSITIVE 01/18/20 07:45 Antibody Screen Negative 01/18/20 07:45 Active Medications Acetaminophen (Ofirmev Injection -) 1,000 mg IVPB Q6H PRN PRN Reason: PAIN LEVEL 1-5 Last Admin: 01/21/20 13:57 Dose: 1,000 mg Documented by: Enoxaparin Sodium (Lovenox -) 40 mg SQ DAILY LEIDY Last Admin: 01/23/20 09:20 Dose: 40 mg Documented by: Famotidine (Pepcid -) 20 mg PO DAILY LEIDY Last Admin: 01/23/20 13:25 Dose: 20 mg Documented by: Piperacillin Sod/Tazobactam (Sod 3.375 gm/ Dextrose) 50 mls @ 100 mls/hr IVPB Q8H-IV LEIDY; Protocol Last Admin: 01/23/20 17:38 Dose: 100 mls/hr Documented by: Metronidazole (Flagyl 500mg Premixed Ivpb -) 500 mg in 100 mls @ 100 mls/hr IVPB Q8H-IV LEIDY Last Admin: 01/23/20 18:38 Dose: 100 mls/hr Documented by: Lactated Ringer's (Lactated Ringers Solution) 1,000 ml in 1,000 mls @ 150 mls/hr IV ASDIR LEIDY Last Admin: 01/23/20 17:39 Dose: 150 mls/hr Documented by: Melatonin (Melatonin) 10 mg PO HS PRN PRN Reason: INSOMNIA Last Admin: 01/20/20 21:12 Dose: 10 mg Documented by: Morphine Sulfate (Morphine Sulfate) 2 mg IVPUSH Q3H PRN PRN Reason: PAIN LEVEL 4 - 6 ASSESSMENT/PLAN: 34 Y M with a PMH of morbid obesity, presents with abdominal pain. Pt is admitted for sepsis secondary to appendicitis and intra-abdominal abscess. S/p IR drainage of abscess. Sepsis likely secondary to appendicitis and intra-abdominal abscess -Leukocytosis improving -CT A/P as above. F/u repeat CT A/P with PO and IV contrast to evaluate abscess. -s/p IR placed drainage of abscess -Drained 35 mL overnight -c/w metronidazole 500mg q8H (started 01/19, day 4) and zosyn q8H (started 01/17, day 6) -Peritoneal Fluid Cx- Pseudomonas Aeruginosa, Klebsiella Pneumonia, E. Coli, E. Faecium, Strep species. Anaerobic cx: Bacteroides -Ucx negative, blood Cx negative, -c/w morphine 2mg q3H PRN and acetaminophen 1g q6H PRN for pain - ID and surgery consulted. GERD -c/w famotidine 20mg qD. Monitor platelets Morbid obesity - HbA1c 5.3, Lipid pannel: Cholesterol 156, LDL 103, HDL 34 - f/u outpatient - counseled on diet and exercise. FEN - No standing fluids - replete lytes and monitor - Regular diet DVT ppx - lovenox Dispo - Will continue to monitor in Med surg Visit type - Emergency Visit Emergency Visit: Yes ED Registration Date: 01/17/20 Care time: The patient presented to the Emergency Department on the above date and was hospitalized for further evaluation of their emergent condition. - New Patient This patient is new to me today: No - Critical Care Critical Care patient: No ATTENDING PHYSICIAN STATEMENT I saw and evaluated the patient. I reviewed the resident's note and discussed the case with the resident. I agree with the resident's findings and plan as documented. SUBJECTIVE: OBJECTIVE: ASSESSMENT AND PLAN:
[2020-01-23] MEDS: FAMOTIDINE 20 MG TABLET PO SCH (13:25)
--- NOTE | 2020-01-23 15:28 | PN ---
Progress Note, Physician History of Present Illness: Pt feeling better. Denies abd pain. Had regular diet today and tolerated well. Tmax 99.1F. - Current Medication List Current Medications: Active Medications Acetaminophen (Ofirmev Injection -) 1,000 mg IVPB Q6H PRN PRN Reason: PAIN LEVEL 1-5 Last Admin: 01/21/20 13:57 Dose: 1,000 mg Documented by: Enoxaparin Sodium (Lovenox -) 40 mg SQ DAILY LEIDY Last Admin: 01/23/20 09:20 Dose: 40 mg Documented by: Famotidine (Pepcid -) 20 mg PO DAILY LEIDY Last Admin: 01/23/20 13:25 Dose: 20 mg Documented by: Piperacillin Sod/Tazobactam (Sod 3.375 gm/ Dextrose) 50 mls @ 100 mls/hr IVPB Q8H-IV LEIDY; Protocol Last Admin: 01/23/20 09:19 Dose: 100 mls/hr Documented by: Metronidazole (Flagyl 500mg Premixed Ivpb -) 500 mg in 100 mls @ 100 mls/hr IVPB Q8H-IV LEIDY Last Admin: 01/23/20 10:29 Dose: 100 mls/hr Documented by: Lactated Ringer's (Lactated Ringers Solution) 1,000 ml in 1,000 mls @ 150 mls/hr IV ASDIR LEIDY Last Admin: 01/23/20 09:20 Dose: 150 mls/hr Documented by: Melatonin (Melatonin) 10 mg PO HS PRN PRN Reason: INSOMNIA Last Admin: 01/20/20 21:12 Dose: 10 mg Documented by: Morphine Sulfate (Morphine Sulfate) 2 mg IVPUSH Q3H PRN PRN Reason: PAIN LEVEL 4 - 6 - Objective Vital Signs: Vital Signs Temperature 98.5 F 01/23/20 13:59 Pulse Rate 98 H 01/23/20 13:59 Respiratory Rate 20 01/23/20 13:59 Blood Pressure 139/85 01/23/20 13:59 O2 Sat by Pulse Oximetry (%) 94 L 01/23/20 13:59 Constitutional: Yes: No Distress, Calm Cardiovascular: Yes: Regular Rate and Rhythm Respiratory: Yes: Regular Gastrointestinal: Yes: Normal Bowel Sounds, Soft, Abdomen, Obese Genitourinary: Yes: WNL Integumentary: Yes: WNL Neurological: Yes: Alert, Oriented Labs: CBC, BMP 01/23/20 07:18 01/23/20 07:18 INR, PTT INR 1.39 (0.83-1.09) H 01/18/20 07:45 Laboratory Last Values WBC 10.2 K/mm3 (4.0-10.0) H 01/23/20 07:18 RBC 3.87 M/mm3 (4.00-5.60) L 01/23/20 07:18 Hgb 11.4 GM/dL (11.7-16.9) L 01/23/20 07:18 Hct 33.2 % (35.4-49) L 01/23/20 07:18 MCV 85.9 fl (80-96) 01/23/20 07:18 MCH 29.6 pg (25.7-33.7) 01/23/20 07:18 MCHC 34.4 g/dl (32.0-35.9) 01/23/20 07:18 RDW 12.7 % (11.9-15.9) 01/23/20 07:18 Plt Count 203 K/MM3 (134-434) D 01/23/20 07:18 MPV 7.4 fl (7.5-11.1) L 01/23/20 07:18 Absolute Neuts (auto) 8.4 K/mm3 (1.5-8.0) H 01/23/20 07:18 Neutrophils % 82.5 % (42.8-82.8) 01/23/20 07:18 Neutrophils % (Manual) 85.3 % (42.8-82.8) H 01/20/20 04:45 Band Neutrophils % 2.0 % 01/20/20 04:45 Lymphocytes % 8.9 % (8-40) D 01/23/20 07:18 Lymphocytes % (Manual) 6.9 % (8-40) L 01/20/20 04:45 Monocytes % 7.8 % (3.8-10.2) 01/23/20 07:18 Monocytes % (Manual) 2 % (3.8-10.2) L 01/20/20 04:45 Eosinophils % 0.6 % (0-4.5) D 01/23/20 07:18 Eosinophils % (Manual) 1.9 % (0-4.5) 01/20/20 04:45 Basophils % 0.2 % (0-2.0) 01/23/20 07:18 Basophils % (Manual) 0.0 % (0-2.0) 01/20/20 04:45 Myelocytes % (Man) 2 % (0-2) 01/20/20 04:45 Promyelocytes % (Man) 0 % (0-2) 01/20/20 04:45 Blast Cells % (Manual) 0 % (0-0) 01/20/20 04:45 Nucleated RBC % 0 % (0-0) 01/23/20 07:18 Metamyelocytes 0 % (0-2) 01/20/20 04:45 Hypochromia 0 01/20/20 04:45 Platelet Estimate Normal 01/20/20 04:45 Polychromasia 0 01/20/20 04:45 Poikilocytosis 0 01/20/20 04:45 Anisocytosis 0 01/20/20 04:45 Microcytosis 0 01/20/20 04:45 Macrocytosis 0 01/20/20 04:45 PT with INR 16.40 SEC (9.7-13.0) H 01/18/20 07:45 INR 1.39 (0.83-1.09) H 01/18/20 07:45 PTT (Actin FS) 28.2 SECONDS (25.2-36.5) 01/18/20 07:45 Sodium 137 mmol/L (136-145) 01/23/20 07:18 Potassium 3.2 mmol/L (3.5-5.1) L 01/23/20 07:18 Chloride 103 mmol/L (98-107) 01/23/20 07:18 Carbon Dioxide 25 mmol/L (21-32) 01/23/20 07:18 Anion Gap 9 MMOL/L (8-16) 01/23/20 07:18 BUN 7.7 mg/dL (7-18) 01/23/20 07:18 Creatinine 0.5 mg/dL (0.55-1.3) L 01/23/20 07:18 Est GFR (CKD-EPI)AfAm 162.72 01/23/20 07:18 Est GFR (CKD-EPI)NonAf 140.40 01/23/20 07:18 Random Glucose 85 mg/dL (74-106) 01/23/20 07:18 Hemoglobin A1c % 5.3 % (4.2-6.3) 01/18/20 07:45 Calcium 8.1 mg/dL (8.5-10.1) L 01/23/20 07:18 Phosphorus 4.1 mg/dL (2.5-4.9) 01/23/20 07:18 Magnesium 2.1 mg/dL (1.8-2.4) 01/23/20 07:18 Total Bilirubin 0.4 mg/dL (0.2-1) 01/23/20 07:18 AST 15 U/L (15-37) 01/23/20 07:18 ALT 27 U/L (13-61) 01/23/20 07:18 Alkaline Phosphatase 122 U/L (45-117) H 01/23/20 07:18 Creatine Kinase 75 U/L (26-308) 01/17/20 13:05 Troponin I < 0.02 ng/ml (0.00-0.05) 01/17/20 13:05 Total Protein 5.8 g/dl (6.4-8.2) L 01/23/20 07:18 Albumin 2.3 g/dl (3.4-5.0) L 01/23/20 07:18 Triglycerides 97 mg/dL (0-150) 01/18/20 07:45 Cholesterol 156 mg/dL (50-200) 01/18/20 07:45 Total LDL Cholesterol 103 mg/dL (5-100) H 01/18/20 07:45 HDL Cholesterol 34 mg/dL (40-60) L 01/18/20 07:45 Lipase 121 U/L (73-393) 01/17/20 13:05 TSH 1.59 uIU/ml (0.358-3.74) 01/18/20 07:45 Free T4 1.34 ng/dl (0.76-1.16) H 01/18/20 07:45 Urine Color Yellow 01/18/20 00:00 Urine Appearance Clear 01/18/20 00:00 Urine pH 6.5 (5.0-8.0) 01/18/20 00:00 Ur Specific [place] 1.018 (1.010-1.035) 01/18/20 00:00 Urine Protein Negative (NEGATIVE) 01/18/20 00:00 Urine Glucose (UA) Negative (NEGATIVE) 01/18/20 00:00 Urine Ketones Trace (NEGATIVE) H 01/18/20 00:00 Urine Blood Negative (NEGATIVE) 01/18/20 00:00 Urine Nitrite Negative (NEGATIVE) 01/18/20 00:00 Urine Bilirubin Negative (NEGATIVE) 01/18/20 00:00 Urine Urobilinogen 0.2 mg/dL (0.2-1.0) 01/18/20 00:00 Ur Leukocyte Esterase Negative (NEGATIVE) 01/18/20 00:00 COVID-19 (JENNIFER) Not detected (Not Detected) 01/17/20 19:45 Blood Type B POSITIVE 01/18/20 07:45 Antibody Screen Negative 01/18/20 07:45 Microbiology 01/18/20 16:30 Peritoneal Fluid Gram Stain - Final 01/18/20 16:30 Peritoneal Fluid Body Fluid Culture - Preliminary Pseudomonas Aeruginosa Klebsiella Pneumoniae Escherichia Coli Enterococcus Faecium Streptococcus Species#2 01/18/20 16:30 Peritoneal Fluid Anaerobic Culture - Final Bacteroides Thetaiotaomicron 01/20/20 04:45 Blood - Peripheral Venous Blood Culture - Preliminary NO GROWTH OBTAINED AFTER 72 HOURS, INCUBATION TO CONTINUE FOR 2 DAYS. 01/20/20 04:45 Blood - Peripheral Venous Blood Culture - Preliminary NO GROWTH OBTAINED AFTER 72 HOURS, INCUBATION TO CONTINUE FOR 2 DAYS. 01/17/20 16:15 Blood - Peripheral Venous Blood Culture - Final NO GROWTH AFTER 5 DAYS INCUBATION 01/17/20 16:15 Blood - Peripheral Venous Blood Culture - Final NO GROWTH AFTER 5 DAYS INCUBATION 01/18/20 16:30 Peritoneal Fluid AFB Smear Concentration - Final 01/18/20 16:30 Peritoneal Fluid Mycobacterial Culture - Preliminary 01/20/20 04:45 Urine - Urine Clean Catch Urine Culture - Final NO GROWTH OBTAINED Problem List - Problems (1) Appendicitis with abscess Code(s): K35.33 - ACUTE APPENDICITIS WITH PERF AND LOC PERITONITIS, WITH ABSCS Assessment/Plan Appendicitis with multiple abscesses s/p drain placement Peritonitis Fever Leukocytosis Morbid obesity -- Pt feels well, appears to be clinically improving -- continue antibiotics -- monitor temp trend, leukocytosis improved -- repeat CT planned
--- NOTE | 2020-01-23 18:35 | PN ---
Teaching Attending Note Name of Resident: Mckenzie Cochran ATTENDING PHYSICIAN STATEMENT I saw and evaluated the patient. I reviewed the resident's note and discussed the case with the resident. I agree with the resident's findings and plan as documented. SUBJECTIVE: Patient is feeling better, with NAD, tolerating diet ok OBJECTIVE: Vital Signs Temperature 98.5 F 01/23/20 13:59 Pulse Rate 98 H 01/23/20 13:59 Respiratory Rate 20 01/23/20 13:59 Blood Pressure 139/85 01/23/20 13:59 O2 Sat by Pulse Oximetry (%) 94 L 01/23/20 13:59 PE; per resident's note CBCD WBC 10.2 K/mm3 (4.0-10.0) H 01/23/20 07:18 RBC 3.87 M/mm3 (4.00-5.60) L 01/23/20 07:18 Hgb 11.4 GM/dL (11.7-16.9) L 01/23/20 07:18 Hct 33.2 % (35.4-49) L 01/23/20 07:18 MCV 85.9 fl (80-96) 01/23/20 07:18 MCHC 34.4 g/dl (32.0-35.9) 01/23/20 07:18 RDW 12.7 % (11.9-15.9) 01/23/20 07:18 Plt Count 203 K/MM3 (134-434) D 01/23/20 07:18 MPV 7.4 fl (7.5-11.1) L 01/23/20 07:18 CMP Sodium 137 mmol/L (136-145) 01/23/20 07:18 Potassium 3.2 mmol/L (3.5-5.1) L 01/23/20 07:18 Chloride 103 mmol/L (98-107) 01/23/20 07:18 Carbon Dioxide 25 mmol/L (21-32) 01/23/20 07:18 Anion Gap 9 MMOL/L (8-16) 01/23/20 07:18 BUN 7.7 mg/dL (7-18) 01/23/20 07:18 Creatinine 0.5 mg/dL (0.55-1.3) L 01/23/20 07:18 Random Glucose 85 mg/dL (74-106) 01/23/20 07:18 Calcium 8.1 mg/dL (8.5-10.1) L 01/23/20 07:18 Total Bilirubin 0.4 mg/dL (0.2-1) 01/23/20 07:18 AST 15 U/L (15-37) 01/23/20 07:18 ALT 27 U/L (13-61) 01/23/20 07:18 Alkaline Phosphatase 122 U/L (45-117) H 01/23/20 07:18 Total Protein 5.8 g/dl (6.4-8.2) L 01/23/20 07:18 Albumin 2.3 g/dl (3.4-5.0) L 01/23/20 07:18 CARDIAC ENZYMES Creatine Kinase 75 U/L (26-308) 01/17/20 13:05 Troponin I < 0.02 ng/ml (0.00-0.05) 01/17/20 13:05 Current Medications Generic Name Dose Route Start Last Admin Trade Name Gorge PRN Reason Stop Dose Admin Acetaminophen 1,000 mg 01/17/20 17:27 01/21/20 13:57 Ofirmev Injection - IVPB 1,000 mg Q6H PRN Administration PAIN LEVEL 1-5 Enoxaparin Sodium 40 mg 01/22/20 10:00 01/23/20 09:20 Lovenox - SQ 40 mg DAILY LEIDY Administration Famotidine 20 mg 01/23/20 12:45 01/23/20 13:25 Pepcid - PO 20 mg DAILY LEIDY Administration Piperacillin Sod/Tazobactam 50 mls @ 100 mls/hr 01/18/20 18:00 01/23/20 17:38 Sod 3.375 gm/ Dextrose IVPB 100 mls/hr Q8H-IV LEIDY Administration Protocol Metronidazole 500 mg in 100 mls @ 100 mls/hr 01/20/20 11:00 01/23/20 10:29 Flagyl 500mg Premixed Ivpb - IVPB 100 mls/hr Q8H-IV LEIDY Administration Lactated Ringer's 1,000 ml in 1,000 mls @ 150 mls/hr 01/20/20 15:03 01/23/20 17:39 Lactated Ringers Solution IV 150 mls/hr ASDIR LEIDY Administration Melatonin 10 mg 01/20/20 15:01 01/20/20 21:12 Melatonin PO 10 mg HS PRN Administration INSOMNIA Morphine Sulfate 2 mg 01/21/20 23:58 Morphine Sulfate IVPUSH Q3H PRN PAIN LEVEL 4 - 6 Home Medications Medication Instructions Recorded NK [No Known Home Medication] 01/17/20 Microbiology 01/18/20 16:30 Peritoneal Fluid Gram Stain - Final 01/18/20 16:30 Peritoneal Fluid Body Fluid Culture - Preliminary Pseudomonas Aeruginosa Klebsiella Pneumoniae Escherichia Coli Enterococcus Faecium Streptococcus Species#2 01/18/20 16:30 Peritoneal Fluid Anaerobic Culture - Final Bacteroides Thetaiotaomicron 01/20/20 04:45 Blood - Peripheral Venous Blood Culture - Preliminary NO GROWTH OBTAINED AFTER 72 HOURS, INCUBATION TO CONTINUE FOR 2 DAYS. 01/20/20 04:45 Blood - Peripheral Venous Blood Culture - Preliminary NO GROWTH OBTAINED AFTER 72 HOURS, INCUBATION TO CONTINUE FOR 2 DAYS. 01/17/20 16:15 Blood - Peripheral Venous Blood Culture - Final NO GROWTH AFTER 5 DAYS INCUBATION 01/17/20 16:15 Blood - Peripheral Venous Blood Culture - Final NO GROWTH AFTER 5 DAYS INCUBATION 01/18/20 16:30 Peritoneal Fluid AFB Smear Concentration - Final 01/18/20 16:30 Peritoneal Fluid Mycobacterial Culture - Preliminary 01/20/20 04:45 Urine - Urine Clean Catch Urine Culture - Final NO GROWTH OBTAINED ASSESSMENT AND PLAN: Patient is a 34yom with hx of morbid obesity, presents with complaint of abdominal pain and was found to have abdominal abscesses with appendicitis. #POD#5 s/p IR drainage placement Abdominal abscess, appendicitis: On IV zosyn continue as per ID , surgery on the case #Morbid obesity: director of broadcast consult. DVt px: SCDs bilateral lower extremities. hep sq continue on full diet now as per sx
[2020-01-24] MEDS ORDERED: PIPERACILLIN/TAZOBACTAM 3.375 GM VIAL IVPB ONE ×4 (00:49→16:23)
[2020-01-24] MEDS ORDERED: DEXTROSE 5%-WATER - 50 ML IVPB ONE ×4 (00:49→16:23)
[2020-01-24] MEDS: PIPERACILLIN/TAZOB 3.375 GM 3.375 GM in DEXTROSE 5%-WATER - 50 ML IVPB SCH ×3 (00:59→17:05)
[2020-01-24 08:18] LABS: BASO % 0.3 % (0-2.0); HEMATOCRIT 37.6 % (35.4-49); HEMOGLOBIN 12.8 GM/dL (11.7-16.9); LYMPH % 12.2 % (8-40); MCH 29.5 pg (25.7-33.7); MEAN CELL VOLUME 86.9 fl (80-96); MEAN PLT VOLUME 7.4 fl (7.5-11.1); MONO % 6.9 % (3.8-10.2); NEUT % 79.6 % (42.8-82.8); PLATELET COUNT 267 K/MM3 (134-434); RBC 4.32 M/mm3 (4.00-5.60); RDW 12.9 % (11.9-15.9); WHITE BLOOD COUNT 10.7 K/mm3 (4.0-10.0)
[2020-01-24 08:40] LABS: BLOOD UREA NITROGEN 7.1 mg/dL (7-18); CALCIUM 8.3 mg/dL (8.5-10.1); CREATININE 0.6 mg/dL (0.55-1.3); MAGNESIUM 2.1 mg/dL (1.8-2.4); PHOSPHOROUS 5.1 mg/dL (2.5-4.9); POTASSIUM 3.9 mmol/L (3.5-5.1)
[2020-01-24] MEDS ORDERED: POTASSIUM CHLORIDE TABS 20 MEQ TABLET.ER (FP) PO ONE (09:02)
--- NOTE | 2020-01-24 09:36 | PN ---
Teaching Attending Note Name of Resident: Karol Prince ATTENDING PHYSICIAN STATEMENT I saw and evaluated the patient. I reviewed the resident's note and discussed the case with the resident. I agree with the resident's findings and plan as documented. SUBJECTIVE: Patient is sitting ont he chair, comfortable, still draining but less OBJECTIVE: Vital Signs Temperature 98.2 F 01/24/20 05:35 Pulse Rate 94 H 01/24/20 05:35 Respiratory Rate 20 01/24/20 05:35 Blood Pressure 122/77 01/24/20 05:35 O2 Sat by Pulse Oximetry (%) 96 01/24/20 05:35 PE: per resident's note +Drainage CBCD WBC 10.7 K/mm3 (4.0-10.0) H 01/24/20 07:31 RBC 4.32 M/mm3 (4.00-5.60) 01/24/20 07:31 Hgb 12.8 GM/dL (11.7-16.9) 01/24/20 07:31 Hct 37.6 % (35.4-49) 01/24/20 07:31 MCV 86.9 fl (80-96) 01/24/20 07:31 MCHC 34.0 g/dl (32.0-35.9) 01/24/20 07:31 RDW 12.9 % (11.9-15.9) 01/24/20 07:31 Plt Count 267 K/MM3 (134-434) D 01/24/20 07:31 MPV 7.4 fl (7.5-11.1) L 01/24/20 07:31 CMP Sodium 139 mmol/L (136-145) 01/24/20 07:31 Potassium 3.9 mmol/L (3.5-5.1) 01/24/20 07:31 Chloride 103 mmol/L (98-107) 01/24/20 07:31 Carbon Dioxide 29 mmol/L (21-32) 01/24/20 07:31 Anion Gap 6 MMOL/L (8-16) L 01/24/20 07:31 BUN 7.1 mg/dL (7-18) 01/24/20 07:31 Creatinine 0.6 mg/dL (0.55-1.3) 01/24/20 07:31 Random Glucose 91 mg/dL (74-106) 01/24/20 07:31 Calcium 8.3 mg/dL (8.5-10.1) L 01/24/20 07:31 Total Bilirubin 0.4 mg/dL (0.2-1) 01/23/20 07:18 AST 15 U/L (15-37) 01/23/20 07:18 ALT 27 U/L (13-61) 01/23/20 07:18 Alkaline Phosphatase 122 U/L (45-117) H 01/23/20 07:18 Total Protein 5.8 g/dl (6.4-8.2) L 01/23/20 07:18 Albumin 2.3 g/dl (3.4-5.0) L 01/23/20 07:18 CARDIAC ENZYMES Creatine Kinase 75 U/L (26-308) 01/17/20 13:05 Troponin I < 0.02 ng/ml (0.00-0.05) 01/17/20 13:05 Current Medications Generic Name Dose Route Start Last Admin Trade Name Gorge PRN Reason Stop Dose Admin Acetaminophen 1,000 mg 01/17/20 17:27 01/21/20 13:57 Ofirmev Injection - IVPB 1,000 mg Q6H PRN Administration PAIN LEVEL 1-5 Enoxaparin Sodium 40 mg 01/22/20 10:00 01/23/20 09:20 Lovenox - SQ 40 mg DAILY LEIDY Administration Famotidine 20 mg 01/23/20 12:45 01/23/20 13:25 Pepcid - PO 20 mg DAILY LEIDY Administration Piperacillin Sod/Tazobactam 50 mls @ 100 mls/hr 01/18/20 18:00 01/24/20 00:59 Sod 3.375 gm/ Dextrose IVPB 100 mls/hr Q8H-IV LEIDY Administration Protocol Metronidazole 500 mg in 100 mls @ 100 mls/hr 01/20/20 11:00 01/24/20 01:45 Flagyl 500mg Premixed Ivpb - IVPB 100 mls/hr Q8H-IV LEIDY Administration Melatonin 10 mg 01/20/20 15:01 01/20/20 21:12 Melatonin PO 10 mg HS PRN Administration INSOMNIA Morphine Sulfate 2 mg 01/21/20 23:58 Morphine Sulfate IVPUSH Q3H PRN PAIN LEVEL 4 - 6 Home Medications Medication Instructions Recorded NK [No Known Home Medication] 01/17/20 Microbiology 01/20/20 04:45 Blood - Peripheral Venous Blood Culture - Preliminary NO GROWTH OBTAINED AFTER 96 HOURS, INCUBATION TO CONTINUE FOR 1 DAYS. 01/20/20 04:45 Blood - Peripheral Venous Blood Culture - Preliminary NO GROWTH OBTAINED AFTER 96 HOURS, INCUBATION TO CONTINUE FOR 1 DAYS. 01/18/20 16:30 Peritoneal Fluid Gram Stain - Final 01/18/20 16:30 Peritoneal Fluid Body Fluid Culture - Preliminary Pseudomonas Aeruginosa Klebsiella Pneumoniae Escherichia Coli Enterococcus Faecium Streptococcus Species#2 01/18/20 16:30 Peritoneal Fluid Anaerobic Culture - Final Bacteroides Thetaiotaomicron 01/17/20 16:15 Blood - Peripheral Venous Blood Culture - Final NO GROWTH AFTER 5 DAYS INCUBATION 01/17/20 16:15 Blood - Peripheral Venous Blood Culture - Final NO GROWTH AFTER 5 DAYS INCUBATION 01/18/20 16:30 Peritoneal Fluid AFB Smear Concentration - Final 01/18/20 16:30 Peritoneal Fluid Mycobacterial Culture - Preliminary 01/20/20 04:45 Urine - Urine Clean Catch Urine Culture - Final NO GROWTH OBTAINED ASSESSMENT AND PLAN: Patient is a 34yom with hx of morbid obesity, presents with complaint of abdominal pain and was found to have abdominal abscesses with appendicitis. 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 DVt px: SCDs bilateral lower extremities. hep sq continue on full diet now as per sx ; tolerating well discharge plan per sx
--- NOTE | 2020-01-24 10:41 | PN ---
Progress Note, Physician History of Present Illness: stable drain still with pus - Current Medication List Current Medications: Active Medications Acetaminophen (Ofirmev Injection -) 1,000 mg IVPB Q6H PRN PRN Reason: PAIN LEVEL 1-5 Last Admin: 01/21/20 13:57 Dose: 1,000 mg Documented by: Enoxaparin Sodium (Lovenox -) 40 mg SQ DAILY [facility] Last Admin: 01/23/20 09:20 Dose: 40 mg Documented by: Famotidine (Pepcid -) 20 mg PO DAILY [facility] Last Admin: 01/23/20 13:25 Dose: 20 mg Documented by: Piperacillin Sod/Tazobactam (Sod 3.375 gm/ Dextrose) 50 mls @ 100 mls/hr IVPB Q8H-IV [facility]; Protocol Last Admin: 01/24/20 00:59 Dose: 100 mls/hr Documented by: Metronidazole (Flagyl 500mg Premixed Ivpb -) 500 mg in 100 mls @ 100 mls/hr IVPB Q8H-IV [facility] Last Admin: 01/24/20 01:45 Dose: 100 mls/hr Documented by: Melatonin (Melatonin) 10 mg PO HS PRN PRN Reason: INSOMNIA Last Admin: 01/20/20 21:12 Dose: 10 mg Documented by: Morphine Sulfate (Morphine Sulfate) 2 mg IVPUSH Q3H PRN PRN Reason: PAIN LEVEL 4 - 6 - Objective Vital Signs: Vital Signs Temperature 98.2 F 01/24/20 05:35 Pulse Rate 94 H 01/24/20 05:35 Respiratory Rate 20 01/24/20 05:35 Blood Pressure 122/77 01/24/20 05:35 O2 Sat by Pulse Oximetry (%) 96 01/24/20 05:35 Constitutional: Yes: No Distress, Calm Cardiovascular: Yes: S1, S2 Respiratory: Yes: Regular, CTA Bilaterally Gastrointestinal: Yes: Normal Bowel Sounds, Soft, Other (drain in place) Musculoskeletal: Yes: WNL Extremities: Yes: WNL Neurological: Yes: Alert, Oriented Psychiatric: Yes: Alert, Oriented Labs: CBC, BMP 01/24/20 07:31 01/24/20 07:31 INR, PTT INR 1.39 (0.83-1.09) H 01/18/20 07:45 Assessment/Plan 34 year old male with history of morbid obesity, presents with complaint of abdominal pain. Problem List - Problems (1) Appendicitis with abscess Code(s): K35.33 - ACUTE APPENDICITIS WITH PERF AND LOC PERITONITIS, WITH ABSCS Assessment/Plan Appendicitis with multiple abscesses s/p drain placement Peritonitis Fever Leukocytosis Morbid obesity -- Pt feels well, appears to be clinically improving -- continue antibiotics await for repeat ct rest as per the team
[2020-01-24] MEDS: FAMOTIDINE 20 MG TABLET PO SCH (10:57)
[2020-01-24] MEDS: ENOXAPARIN NA (PORCINE) 40 MG/0.4 ML DISP.SYRIN SQ SCH (10:57)
--- NOTE | 2020-01-24 13:32 | PN ---
Progress Note (short form) - Note Progress Note: surgery: Pt states that he is feeling ok, having solid BM and tolerating regular diet. No increase in abd pain Vital Signs Period Temp Pulse Resp BP Sys/Marinelli Pulse Ox Last 24 Hr 97.5 F-98.5 F 92-99 18-20 122-156/77-85 94-98 Stacey: murky/light brown thick material 40ml GEN: A&0x3, NAD ABD: soft, non-distended, non-tender CBC, BMP 01/24/20 07:31 01/24/20 07:31 A/P: 34 yo male with RLQ abscess s/p IRD for ruptured appendicitis REcommend to cont regular diet Repeat CT scan today D/w Dr. Maza Continue IV abx
--- NOTE | 2020-01-24 14:46 | PN ---
Physical Exam: SUBJECTIVE: Patient seen and examined at bedside, reports that he feels well. tolerating regular diet. No acute events overnight. No complaints OBJECTIVE: Vital Signs Period Temp Pulse Resp BP Sys/Marinelli Pulse Ox Last 24 Hr 97.5 F-98.2 F 92-99 18-20 118-156/60-80 96-98 GENERAL: The patient is awake, alert, and fully oriented, in mild distress HEAD: Normocephalic, atraumatic. EYES: PERRL, extraocular movements intact, sclera anicteric, conjunctiva clear. ENT: Oropharynx clear, without erythema or exudates. Moist mucous membranes. NECK: Trachea midline, full range of motion. Supple without lymphadenopathy. LUNGS: Breath sounds equal, clear to auscultation bilaterally. No wheezes, no crackles. No accessory muscle use. HEART: Regular rate and rhythm. S1, S2 without murmur, rub or gallop. ABDOMEN: Obese abdomen, non distended. TPP in all quadrants. BS + in all 4 Quadrants. Drain is in place-draining light green EXTREMITIES: 2+ radial, dorsalis pedis pulses bilaterally. Warm, well-perfused. NEUROLOGICAL: Cranial nerves II through XII grossly intact. Normal speech. No gross focal deficits. SKIN: Warm, dry. Laboratory Results - last 24 hr 01/24/20 01/24/20 07:31 07:31 WBC 10.7 H RBC 4.32 Hgb 12.8 Hct 37.6 MCV 86.9 MCH 29.5 MCHC 34.0 RDW 12.9 Plt Count 267 D MPV 7.4 L Absolute Neuts (auto) 8.5 H Neutrophils % 79.6 Lymphocytes % 12.2 D Monocytes % 6.9 Eosinophils % 1.0 Basophils % 0.3 Nucleated RBC % 0 Sodium 139 Potassium 3.9 Chloride 103 Carbon Dioxide 29 Anion Gap 6 L BUN 7.1 Creatinine 0.6 Est GFR (CKD-EPI)AfAm 150.97 Est GFR (CKD-EPI)NonAf 130.26 Random Glucose 91 Calcium 8.3 L Phosphorus 5.1 H Magnesium 2.1 Active Medications Generic Name Dose Route Start Last Admin Trade Name Freq PRN Reason Stop Dose Admin Acetaminophen 1,000 mg 01/17/20 17:27 01/21/20 13:57 Ofirmev Injection - IVPB 1,000 mg Q6H PRN Administration PAIN LEVEL 1-5 Enoxaparin Sodium 40 mg 01/22/20 10:00 01/24/20 10:57 Lovenox - SQ 40 mg DAILY [facility] Administration Famotidine 20 mg 01/23/20 12:45 01/24/20 10:57 Pepcid - PO 20 mg DAILY [facility] Administration Piperacillin Sod/Tazobactam 50 mls @ 100 mls/hr 01/18/20 18:00 01/24/20 10:41 Sod 3.375 gm/ Dextrose IVPB 100 mls/hr Q8H-IV [facility] Administration Protocol Metronidazole 500 mg in 100 mls @ 100 mls/hr 01/20/20 11:00 01/24/20 10:46 Flagyl 500mg Premixed Ivpb - IVPB 100 mls/hr Q8H-IV [facility] Administration Melatonin 10 mg 01/20/20 15:01 01/20/20 21:12 Melatonin PO 10 mg HS PRN Administration INSOMNIA Morphine Sulfate 2 mg 01/21/20 23:58 Morphine Sulfate IVPUSH Q3H PRN PAIN LEVEL 4 - 6 ASSESSMENT/PLAN: 34 Y M with a PMH of morbid obesity, presents with abdominal pain, CTAP revealed 10 x 7 cm abscess abutting the cecum and appendix + acute appendicitis, admitted for Appendicitis #Sepsis 2/2 Appendicitis and intra-abdominal abscess #Appendicitis #abscess abutting cecum, and appendix - Tmax 101.8(rectal), Hr 140 with leukocytosis 11.7 on 01/19 - Leukocytosis improving, today 10.7, afibrile and hemodynamically stable - abscess likely 2/2 to ruptured appendix 2/2 to appendicitis - CTAB and US abdomen noted - Surgery, is consulted, recs appreciated Advanced to regular diet Pending read on repeat CT - s/p IR abscess Drainage with Drained 30ml of green/brown fluids overnight - ID, Dr. Day is following, recs appreciated Continue treatment with IV Zosyn 3.375 D#7 and Flagyl 500mg IV Q8H D#5 Peritoneal Fluid Cx: Pseudomonas Aeruginosa, Klebsiella Pneumonia, E. Coli, E. Faecium, Strep salivarius. 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 - New Patient This patient is new to me today: No - Critical Care Critical Care patient: No - Discharge Referral Referred to [facility] Med P.C.: No ATTENDING PHYSICIAN STATEMENT I saw and evaluated the patient. I reviewed the resident's note and discussed the case with the resident. I agree with the resident's findings and plan as documented. SUBJECTIVE: OBJECTIVE: ASSESSMENT AND PLAN:
[2020-01-24] MEDS ORDERED: ACETAMINOPHEN 500 MG TABLET (FP) PO PRN (18:28)
[2020-01-25] MEDS ORDERED: DEXTROSE 5%-WATER - 50 ML IVPB ONE ×3 (00:50→16:43)
[2020-01-25] MEDS ORDERED: PIPERACILLIN/TAZOBACTAM 3.375 GM VIAL IVPB ONE ×4 (00:50→16:43)
[2020-01-25] MEDS: PIPERACILLIN/TAZOB 3.375 GM 3.375 GM in DEXTROSE 5%-WATER - 50 ML IVPB SCH ×3 (01:01→18:35)
--- NOTE | 2020-01-25 09:11 | PN ---
Teaching Attending Note Name of Resident: Karol Prince ATTENDING PHYSICIAN STATEMENT I saw and evaluated the patient. I reviewed the resident's note and discussed the case with the resident. I agree with the resident's findings and plan as documented. SUBJECTIVE: patient feels well, has no complaints Drain in place with minimal output OBJECTIVE: Vital Signs Period Temp Pulse Resp BP Sys/Marinelli Pulse Ox Last 24 Hr 98.3 F-98.9 F 82-100 18-18 107-135/78-92 95-98 Physical Exam as per resident note ASSESSMENT AND PLAN: 34 y/o M with Hx of Morbid Obseity who presents with abodminal pain Abdominal pain: 2.2 Abscess and appendicitis Continue IV Abx Zosyn, Flagyl drain in place Appreciate Surgery Recs ID rec Levaquin and Augmentin for discharge patient eating well Ppx HSQ Consider discharge today with drain in place. Will need outpatient follow up for possible appendicitis
--- NOTE | 2020-01-25 09:18 | PN ---
Progress Note (short form) - Note Progress Note: Pt seen and examined. Sitting in the chair. Reports he is feeling "great". Tolerating regular diet. No BM overnight. Voiding without issue, NPO. Passing flatus. Denies cp/sob, n/v. Vital Signs Temp 98.3 F 01/25/20 06:00 Pulse 82 01/25/20 06:00 Resp 18 01/25/20 06:00 BP 107/84 01/25/20 06:00 Pulse Ox 95 01/25/20 06:00 Intake & Output 01/24/20 01/24/20 01/25/20 11:59 23:59 11:59 Intake Total 650 1380 650 Output Total 480 50 10 Balance 170 1330 640 Intake: IVPB 150 300 150 Oral 500 1080 500 Output: Drainage 30 50 10 Left Lower Lateral 30 50 10 Abdomen Emesis 450 Other: Voiding Method Urinal Urinal Urinal # Unmeasured Voids Void 2 Bowel Movement No No No Body Mass Index (BMI) 41.0 Gen: awake, alert, nad Resp: Unlabored on RA Abdo: obese, soft, nondistended, some ttp at drain site. Drain in place with scant feculent brown/green discharge in reservoir and tubing. + bowel sounds A/P: 34 y/o M w/ PMHx morbid obesity, a/w abdominal pain. CT scan revealing rlq abscess consistent with ruptured appendicitis, s/p placement of IR drain on 01/17. afebrile, tachy high 90s labs pending drain output 10ml overnight repeat scan done yesterday will d/w Dr Keita today -iv abx per ID, spoke to Dr Cha scan appears improved pt should follow up with IR after completing course of abx per ID (10 additional days Levaquin/Augmentin) -Keep npo, ivf -Drain management per IR -Pain control -Serial abdo exams -Monitor vs d/w attending Dr Maza <Jenny Gregorio - Last Filed: 01/25/20 14:57> - Note Progress Note: Attending Surgeon: I personally saw and examined the patient. My examination reveals a patient with complicated diverticulitis. I discussed the case with the surgical PA and agree with their findings and plan of care with any exceptions as noted. ~ Drew Maza MD, FACS <Drew Maza - Last Filed: 01/31/20 12:28>
[2020-01-25] MEDS: ENOXAPARIN NA (PORCINE) 40 MG/0.4 ML DISP.SYRIN SQ SCH (09:20)
[2020-01-25] MEDS: FAMOTIDINE 20 MG TABLET PO SCH (09:20)
[2020-01-25 09:26] LABS: BASO % 1.6 % (0-2.0); EOS % 1.1 % (0-4.5); HEMATOCRIT 40.1 % (35.4-49); HEMOGLOBIN 13.4 GM/dL (11.7-16.9); LYMPH % 15.6 % (8-40); MCH 29.2 pg (25.7-33.7); MCHC 33.4 g/dl (32.0-35.9); MEAN CELL VOLUME 87.2 fl (80-96); MEAN PLT VOLUME 7.5 fl (7.5-11.1); MONO % 6.2 % (3.8-10.2); NEUT % 75.5 % (42.8-82.8); PLATELET COUNT 314 K/MM3 (134-434); WHITE BLOOD COUNT 9.1 K/mm3 (4.0-10.0)
[2020-01-25 09:57] LABS: POTASSIUM 4.3 mmol/L (3.5-5.1)
[2020-01-25 10:08] LABS: ALBUMIN 2.7 g/dl (3.4-5.0); BILIRUBIN,TOTAL 0.5 mg/dL (0.2-1); BLOOD UREA NITROGEN 7.4 mg/dL (7-18); CALCIUM 8.5 mg/dL (8.5-10.1); CREATININE 0.7 mg/dL (0.55-1.3); MAGNESIUM 2.1 mg/dL (1.8-2.4); PHOSPHOROUS 4.2 mg/dL (2.5-4.9); TOT PROT 7.4 g/dl (6.4-8.2)
--- NOTE | 2020-01-25 14:18 | PN ---
Progress Note, Physician History of Present Illness: stable no new issues - Current Medication List Current Medications: Active Medications Acetaminophen (Tylenol -) 1,000 mg PO Q6H PRN PRN Reason: PAIN LEVEL 1-5 Enoxaparin Sodium (Lovenox -) 40 mg SQ DAILY [facility] Last Admin: 01/25/20 09:20 Dose: 40 mg Documented by: Famotidine (Pepcid -) 20 mg PO DAILY [facility] Last Admin: 01/25/20 09:20 Dose: 20 mg Documented by: Piperacillin Sod/Tazobactam (Sod 3.375 gm/ Dextrose) 50 mls @ 100 mls/hr IVPB Q8H-IV [facility]; Protocol Last Admin: 01/25/20 09:20 Dose: 100 mls/hr Documented by: Metronidazole (Flagyl 500mg Premixed Ivpb -) 500 mg in 100 mls @ 100 mls/hr IVPB Q8H-IV [facility] Last Admin: 01/25/20 09:20 Dose: 100 mls/hr Documented by: Melatonin (Melatonin) 10 mg PO HS PRN PRN Reason: INSOMNIA Last Admin: 01/20/20 21:12 Dose: 10 mg Documented by: - Objective Vital Signs: Vital Signs Temperature 98.3 F 01/25/20 06:00 Pulse Rate 82 01/25/20 06:00 Respiratory Rate 18 01/25/20 06:00 Blood Pressure 107/84 01/25/20 06:00 O2 Sat by Pulse Oximetry (%) 98 01/25/20 09:00 Constitutional: Yes: No Distress, Calm Cardiovascular: Yes: S1, S2 Respiratory: Yes: Regular, CTA Bilaterally Gastrointestinal: Yes: Normal Bowel Sounds, Soft Musculoskeletal: Yes: WNL Extremities: Yes: WNL Neurological: Yes: Alert, Oriented Psychiatric: Yes: Alert, Oriented Labs: CBC, BMP 01/25/20 08:40 01/25/20 08:40 INR, PTT INR 1.39 (0.83-1.09) H 01/18/20 07:45 Assessment/Plan 34 year old male with history of morbid obesity, presents with complaint of abdominal pain. Problem List - Problems (1) Appendicitis with abscess Code(s): K35.33 - ACUTE APPENDICITIS WITH PERF AND LOC PERITONITIS, WITH ABSCS Assessment/Plan Appendicitis with multiple abscesses s/p drain placement Peritonitis Fever Leukocytosis Morbid obesity -- Pt feels well, appears to be clinically improving patient can be switched to levaquin 750 mg po daily and augmentin 875 mg po daily for 10 more days
--- NOTE | 2020-01-25 16:58 | PN ---
Physical Exam: SUBJECTIVE: Patient seen and examined at bedside, no acute events overnight. Tolerating diet, passing gas and bowel movements x2 daily. OBJECTIVE: Vital Signs Period Temp Pulse Resp BP Sys/Marinelli Pulse Ox Last 24 Hr 98.3 F-98.9 F 82-100 18-18 107-135/78-92 95-98 GENERAL: The patient is awake, alert, and fully oriented, in mild distress HEAD: Normocephalic, atraumatic. EYES: PERRL, extraocular movements intact, sclera anicteric, conjunctiva clear. ENT: Oropharynx clear, without erythema or exudates. Moist mucous membranes. NECK: Trachea midline, full range of motion. Supple without lymphadenopathy. LUNGS: Breath sounds equal, clear to auscultation bilaterally. No wheezes, no crackles. No accessory muscle use. HEART: Regular rate and rhythm. S1, S2 without murmur, rub or gallop. ABDOMEN: Obese abdomen, non distended. non TTP. BS + in all 4 Quadrants. Drain is in place-draining light green EXTREMITIES: 2+ radial, dorsalis pedis pulses bilaterally. Warm, well-perfused. NEUROLOGICAL: Cranial nerves II through XII grossly intact. Normal speech. No gross focal deficits. SKIN: Warm, dry. Laboratory Results - last 24 hr 01/25/20 01/25/20 08:40 08:40 WBC 9.1 RBC 4.60 Hgb 13.4 Hct 40.1 MCV 87.2 MCH 29.2 MCHC 33.4 RDW 13.0 Plt Count 314 MPV 7.5 Absolute Neuts (auto) 6.9 Neutrophils % 75.5 Lymphocytes % 15.6 D Monocytes % 6.2 Eosinophils % 1.1 Basophils % 1.6 D Nucleated RBC % 0 Sodium 137 Potassium 4.3 Chloride 101 Carbon Dioxide 31 Anion Gap 5 L BUN 7.4 Creatinine 0.7 Est GFR (CKD-EPI)AfAm 141.70 Est GFR (CKD-EPI)NonAf 122.26 Random Glucose 114 H Calcium 8.5 Phosphorus 4.2 Magnesium 2.1 Total Bilirubin 0.5 AST 40 H ALT 54 Alkaline Phosphatase 130 H Total Protein 7.4 Albumin 2.7 L Active Medications Generic Name Dose Route Start Last Admin Trade Name Freq PRN Reason Stop Dose Admin Acetaminophen 1,000 mg 01/24/20 18:28 Tylenol - PO Q6H PRN PAIN LEVEL 1-5 Enoxaparin Sodium 40 mg 01/22/20 10:00 01/25/20 09:20 Lovenox - SQ 40 mg DAILY [facility]ID[facility] Administration Famotidine 20 mg 01/23/20 12:45 01/25/20 09:20 Pepcid - PO 20 mg DAILY [facility]ID[facility] Administration Piperacillin Sod/Tazobactam 50 mls @ 100 mls/hr 01/18/20 18:00 01/25/20 09:20 Sod 3.375 gm/ Dextrose IVPB 100 mls/hr Q8H-IV [facility] Administration Protocol Metronidazole 500 mg in 100 mls @ 100 mls/hr 01/20/20 11:00 01/25/20 09:20 Flagyl 500mg Premixed Ivpb - IVPB 100 mls/hr Q8H-IV [facility] Administration Melatonin 10 mg 01/20/20 15:01 01/20/20 21:12 Melatonin PO 10 mg HS PRN Administration INSOMNIA ASSESSMENT/PLAN: 34 Y M with a PMH of morbid obesity, presents with abdominal pain, CTAP revealed 10 x 7 cm abscess abutting the cecum and appendix + acute appendicitis, admitted for Appendicitis #Sepsis 2/2 Appendicitis and intra-abdominal abscess #Appendicitis #abscess abutting cecum, and appendix - Tmax 101.8(rectal), Hr 140 with leukocytosis 11.7 on 01/19 - Leukocytosis improving, today 10.7, afibrile and hemodynamically stable - abscess likely 2/2 to ruptured appendix 2/2 to appendicitis - CTAB and US abdomen noted - Repeat CTAB: Successful percutaneous drainage of anterior abdominal air and fluid collection since 01/17/2020. - Surgery, , following, recs appreciated - s/p IR abscess Drainage with Drained 10ml of green/brown fluids overnight Discussed with Dr Cha regarding the new CT scan. keep drain in place, Out patient follow up with IR after completing course of abx for re-eval - ID, Dr. Day is following, recs appreciated treated with IV Zosyn 3.375 D#8 and Flagyl 500mg IV Q8H D#6 will switch to levaquin 750 mg po daily and augmentin 875 mg po daily for 10 more days on discharge Peritoneal Fluid Cx: Pseudomonas Aeruginosa, Klebsiella Pneumonia, E. Coli, E. Faecium, Strep salivarius. 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 - Will refer to [facility] for primary care upon discharge (No PCP for >7 years) - HbA1c 5.3, Lipid pannel: Cholesterol 156, LDL 103, HDL 34, TSH 1.59, FT4 1.34 FEN - No standing fluids at this time - Will continue to monitor electrolytes - regular diet DVT ppx Lovenox 40mg SQ Dispo - Will continue to monitor in [place], Planning d/c, patient will need VNS for dress changes and Drain care instructions Visit type - Emergency Visit Emergency Visit: Yes ED Registration Date: 01/17/20 Care time: The patient presented to the Emergency Department on the above date and was hospitalized for further evaluation of their emergent condition. - New Patient This patient is new to me today: No - Critical Care Critical Care patient: No - Discharge Referral Referred to [facility] Med P.C.: No ATTENDING PHYSICIAN STATEMENT I saw and evaluated the patient. I reviewed the resident's note and discussed the case with the resident. I agree with the resident's findings and plan as documented. SUBJECTIVE: OBJECTIVE: ASSESSMENT AND PLAN:
[2020-01-26] MEDS ORDERED: DEXTROSE 5%-WATER - 50 ML IVPB ONE ×2 (02:15→09:08)
[2020-01-26] MEDS ORDERED: PIPERACILLIN/TAZOBACTAM 3.375 GM VIAL IVPB ONE ×2 (02:15→09:08)
[2020-01-26] MEDS: PIPERACILLIN/TAZOB 3.375 GM 3.375 GM in DEXTROSE 5%-WATER - 50 ML IVPB SCH ×2 (02:20→09:12)
[2020-01-26 08:59] VITALS: BP 138/84; PULSE 103; TEMP 97.7
[2020-01-26 08:59] LABS: BASO % 0.6 % (0-2.0); EOS % 1.2 % (0-4.5); HEMATOCRIT 39.7 % (35.4-49); HEMOGLOBIN 13.9 GM/dL (11.7-16.9); LYMPH % 18.9 % (8-40); MCH 30.7 pg (25.7-33.7); MEAN CELL VOLUME 87.7 fl (80-96); MEAN PLT VOLUME 7.6 fl (7.5-11.1); MONO % 4.5 % (3.8-10.2); NEUT % 74.8 % (42.8-82.8); PLATELET COUNT 363 K/MM3 (134-434); RBC 4.52 M/mm3 (4.00-5.60); RDW 13.2 % (11.9-15.9); WHITE BLOOD COUNT 7.8 K/mm3 (4.0-10.0)
[2020-01-26] MEDS: ENOXAPARIN NA (PORCINE) 40 MG/0.4 ML DISP.SYRIN SQ SCH (09:12)
[2020-01-26] MEDS: FAMOTIDINE 20 MG TABLET PO SCH (09:12)
[2020-01-26 09:37] LABS: BILIRUBIN,TOTAL 0.7 mg/dL (0.2-1); CALCIUM 8.8 mg/dL (8.5-10.1); CREATININE 0.8 mg/dL (0.55-1.3); MAGNESIUM 2.3 mg/dL (1.8-2.4); PHOSPHOROUS 3.7 mg/dL (2.5-4.9); TOT PROT 7.5 g/dl (6.4-8.2)
--- NOTE | 2020-01-26 11:02 | PN ---
Progress Note, Physician - Current Medication List Current Medications: Active Medications Acetaminophen (Tylenol -) 1,000 mg PO Q6H PRN PRN Reason: PAIN LEVEL 1-5 Enoxaparin Sodium (Lovenox -) 40 mg SQ DAILY [facility] Last Admin: 01/26/20 09:12 Dose: 40 mg Documented by: Famotidine (Pepcid -) 20 mg PO DAILY [facility] Last Admin: 01/26/20 09:12 Dose: 20 mg Documented by: Piperacillin Sod/Tazobactam (Sod 3.375 gm/ Dextrose) 50 mls @ 100 mls/hr IVPB Q8H-IV [facility]; Protocol Last Admin: 01/26/20 09:12 Dose: 100 mls/hr Documented by: Metronidazole (Flagyl 500mg Premixed Ivpb -) 500 mg in 100 mls @ 100 mls/hr IVPB Q8H-IV [facility] Last Admin: 01/26/20 09:58 Dose: 100 mls/hr Documented by: Melatonin (Melatonin) 10 mg PO HS PRN PRN Reason: INSOMNIA Last Admin: 01/20/20 21:12 Dose: 10 mg Documented by: - Objective Vital Signs: Vital Signs Temperature 97.7 F 01/26/20 08:57 Pulse Rate 103 H 01/26/20 08:57 Respiratory Rate 18 01/26/20 08:57 Blood Pressure 138/84 01/26/20 08:57 O2 Sat by Pulse Oximetry (%) 98 01/26/20 08:57 Labs: CBC, BMP 01/26/20 08:28 01/26/20 08:28 INR, PTT INR 1.39 (0.83-1.09) H 01/18/20 07:45
--- NOTE | 2020-01-26 11:13 | PN ---
Progress Note (short form) - Note Progress Note: Pt seen and examined. Sitting in the chair. Reports he is feeling "great". Tolerating regular diet. Reports "Normal" BM yesterday afternoon. Voiding without issue. Passing flatus. Denies cp/sob, n/v. Vital Signs Temp 97.7 F 01/26/20 08:57 Pulse 103 H 01/26/20 08:57 Resp 18 01/26/20 08:57 BP 138/84 01/26/20 08:57 Pulse Ox 98 01/26/20 08:57 Intake & Output 01/25/20 01/25/20 01/26/20 11:59 23:59 11:59 Intake Total 650 780 Output Total 10 20 10 Balance 640 760 -10 Intake: IV 300 saline lock 300 IVPB 150 Oral 500 480 Output: Drainage 10 20 10 Left Lower Lateral 10 20 10 Abdomen Other: Voiding Method Urinal Urinal Urinal Bowel Movement No No No CBC, BMP 01/26/20 08:28 01/26/20 08:28 Gen: awake, alert, nad Resp: Unlabored on RA Abdo: obese, soft, nondistended, some ttp at drain site. Drain in place with scant feculent brown/green discharge in reservoir and tubing. + bowel sounds A/P: 34 y/o M w/ PMHx morbid obesity, a/w abdominal pain. CT scan revealing rlq abscess consistent with ruptured appendicitis, s/p placement of IR drain on 01/17. afebrile, tachy to low 100s occasionally overnight (?Pain) labs reviewed and stable drain output 10ml overnight repeat scan done Friday and d/w Dr Keita. Improvement is noted at the site of the drainage catheter. Plan for pt to be d/c today and complete a 10 day course of antibiotics (Levaquin/Augmentin). Will follow up with IR after course complete for drain study and removal. All discharge instructions reviewed with pt at length. Pt verbalized understanding. Should also f/u with Dr Maza in 7-10 days. d/w attending Dr Maza <Jenny Gregorio - Last Filed: 01/26/20 11:14> - Note Progress Note: Attending Surgeon: I personally saw and examined the patient. My examination reveals a patient with complicated appendicitis. I discussed the case with the surgical PA and agree with their findings and plan of care with any exceptions as noted. ~ Drew Maza MD, FACS <Drew Maza - Last Filed: 01/31/20 12:11>
--- NOTE | 2020-01-26 12:59 | PN ---
Teaching Attending Note Name of Resident: Karol Prince ATTENDING PHYSICIAN STATEMENT I saw and evaluated the patient. I reviewed the resident's note and discussed the case with the resident. I agree with the resident's findings and plan as documented. SUBJECTIVE: Patient feels well, no complaints OBJECTIVE: Vital Signs Period Temp Pulse Resp BP Sys/Marinelli Pulse Ox Last 24 Hr 97.7 F-98.5 F 71-103 18-18 113-138/77-84 96-98 Physical Exam as per resident note ASSESSMENT AND PLAN: 34 y/o M with Hx of Morbid Obseity who presents with abodminal pain Abdominal pain: 2.2 Abscess and appendicitis Transition to PO Abx with Levaquin, augmentin Discharge with drain in place, with home RN for drain care Patient will need to follow up as outpatient for drain removal Tolerating PO intake Ppx Lovenox Dispo: Discharge home today
--- NOTE | 2020-01-26 15:38 | DS ---
Physical Exam: SUBJECTIVE: Patient seen and examined at bedside, no acute events overnight. Tolerating diet, passing gas and bowel movements daily. Reports that he is ready to go home OBJECTIVE: Vital Signs Period Temp Pulse Resp BP Sys/Marinelli Pulse Ox Last 24 Hr 97.7 F-98.5 F 71-103 18-18 113-138/77-84 96-98 PHYSICAL EXAM GENERAL: The patient is awake, alert, and fully oriented, in mild distress HEAD: Normocephalic, atraumatic. EYES: PERRL, extraocular movements intact, sclera anicteric, conjunctiva clear. ENT: Oropharynx clear, without erythema or exudates. Moist mucous membranes. NECK: Trachea midline, full range of motion. Supple without lymphadenopathy. LUNGS: Breath sounds equal, clear to auscultation bilaterally. No wheezes, no crackles. No accessory muscle use. HEART: Regular rate and rhythm. S1, S2 without murmur, rub or gallop. ABDOMEN: Obese abdomen, non distended. non TTP. BS + in all 4 Quadrants. Drain is in place-draining light green/brown EXTREMITIES: 2+ radial, dorsalis pedis pulses bilaterally. Warm, well-perfused. NEUROLOGICAL: Cranial nerves II through XII grossly intact. Normal speech. No gross focal deficits. SKIN: Warm, dry. LABS Laboratory Results - last 24 hr 01/26/20 01/26/20 08:28 08:28 WBC 7.8 RBC 4.52 Hgb 13.9 Hct 39.7 MCV 87.7 MCH 30.7 MCHC 35.0 RDW 13.2 Plt Count 363 MPV 7.6 Absolute Neuts (auto) 5.8 Neutrophils % 74.8 Lymphocytes % 18.9 D Monocytes % 4.5 Eosinophils % 1.2 Basophils % 0.6 Nucleated RBC % 0 Sodium 137 Potassium 4.0 Chloride 104 Carbon Dioxide 28 Anion Gap 6 L BUN 9.0 Creatinine 0.8 Est GFR (CKD-EPI)AfAm 134.14 Est GFR (CKD-EPI)NonAf 115.74 Random Glucose 129 H Calcium 8.8 Phosphorus 3.7 Magnesium 2.3 Total Bilirubin 0.7 AST 33 ALT 54 Alkaline Phosphatase 116 Total Protein 7.5 Albumin 3.0 L HOSPITAL COURSE: Date of Admission:01/17/20 34 Y M with a PMH of morbid obesity, presents with abdominal pain, CTAP revealed 10 x 7 cm abscess abutting the cecum and appendix + acute appendicitis, admitted for Sepsis 2/2 Appendicitis and intra-abdominal abscess. Tmax 101.8(rectal), Hr 140 with leukocytosis 11.7 on 01/19. Leukocytosis improved and he remained afibrile and hemodynamically stable during his hospital course. Abscess was most likely 2/2 to ruptured appendix 2/2 to appendicitis. 01/16 CTAB revealed A large approximately 10 x 7 cm abscess is seen within the mesentery centrally at the level of lower abdomen abutting the cecum and appendix. The appendix is visualized along the right lateral border of this abscess appears slightly thickened which could be on the basis of acute appendicitis versus on a reactive basis. Trace pelvic free fluid. Probable diffuse hepatic steatosis. Mild splenomegaly. Repeat CTAB 01/23 S/P IR drainage showed Successful percutaneous drainage of anterior abdominal air and fluid collection since 01/17/2020. Discussed with Dr Cha regarding the new CT scan. Recommended to keep drain in place, Out patient follow up with IR after completing the course of antibiotics for re- evaluation of the drain. Peritoneal Fluid Cultures revealed: Pseudomonas Aeruginosa, Klebsiella Pneumonia, E. Coli, E. Faecium, Strep salivarius. Anaerobic cx: Bacteroides Thetaiotaomicron. ID, Dr. Day was consulted. Patient was treated inpatient with IV Zosyn 3.375 for 9 days and Flagyl 500mg IV Q8H for 7 days and switched to levaquin 750 mg po daily and augmentin 875 mg po daily for 10 more days, per ID Patient is clinically stable for discharge and discharged him with the following instructions, referrals and prescriptions. Date of Discharge: 01/26/20 Minutes to complete discharge: 36 Discharge Summary Problems reviewed: Yes Reason For Visit: ABSCESS OF APPENDIX Condition: Improved - Instructions Diet, Activity, Other Instructions: YOUR VISIT You came to the hospital because you were experiencing abdominal pain. CT imaging revealed evidence for appendicitis and an intra-abdominal abscess (collection of fluid and cells/pus). You were admitted to the hospital for care of these symptoms. You had surgery and were treated with a drainage placement. Repeat CT image showed improvement of the abscess with the drain. You were treated with IV antibiotics and you will need an additional 10 days of antibiotics. You are now stable and may return home. Blood work showed that you had elevated cholesterol in your blood. Please make an appointment with your primary care provider for repeat blood work. MEDICATIONS Please continue to take your home medications as prescribed. You have *NEW* medication. - Augmentin 1 tablet in the morning and evening for 10 days - Levaquin 750 mg by mouth once a day for 10 days ADDITIONAL CARE Please make an appointment to see a primary care provider 1 week from today for hospital course and repeat labs. Since you do not have one, you can call to schedule an appointment at the [facility] residents' clinic, located at [address] [place] [address]. If you would like to continue seeing Dr. Karol Prince, please ask for a Friday morning appointment. Please make an appointment to see your surgeon, Dr. Maza, 1 week from today. Please make an appointment to see your Interventional radiologist, Remington Guevara, ([phone]) after completion of your oral antibiotics, for removal of your drainage. DRAINAGE CARE You will have a visiting Nurse once per week for assistance with the dress change and drain clean instructions. - Use 5cc of saline flushes two times a day to clean the drain daily, to prevent clotting. - Apply a dry dressing change once per week. - Keep dressing dry: sponge bath only. IT is Important that you do not wet the area, DO NOT take a shower/bath - Follow up outpatient with Dr. Nunez after completion of your antibiotic regimen for repeat CT scan and for further instruction regarding Drain care. ADDITIONAL INFORMATION It is important to modify diet, lose weight, increase exercise, and continue to take your home medications. - Do NOT smoke or use tobacco - Eat healthy, high-fiber foods. Drink 6 to 8 glasses of water each day. This will assist in keeping your bowels regular. - Get regular health screening: blood pressure, cholesterol level and type 2 diabetes screening If you have a condition such as high cholesterol, high blood pressure or diabetes, your doctor may prescribe medications and recommend lifestyle changes. Make sure to take your medications as your doctor prescribes and follow a healthy-lifestyle plan. Please call 911 or come directly to the emergency department if you experience recurrence of the symptoms that brought you to the hospital, unusual headache, vision change, shortness of breath, chest pain, numbness, tingling, loss of alertness/awareness, loss of function, unusual bleeding or any alarming symptoms. Referrals: Freddie Schultz MD [Staff Physician] - 1 Week Drew Maza MD [Staff Physician] - 1 Week (f/u abscess , appendicitis s/p IR drain) Remington Nunez MD [Staff Physician] - 2 Weeks (f/u for Drain removal/care) Disposition: VNS/HOME HEALTH CARE - Home Medications Comprehensive Discharge Medication List: Ambulatory Orders Amoxicillin/Potassium Clav [Augmentin 875-125 Tablet] 1 each PO BID #20 tablet 01/26/20 levoFLOXacin [Levaquin] 750 mg PO DAILY 10 Days #10 tab 01/26/20 This patient is new to me today: No Emergency Visit: Yes ED Registration Date: 01/17/20 Care time: The patient presented to the Emergency Department on the above date and was hospitalized for further evaluation of their emergent condition. Critical Care patient: No - Discharge Referral Referred to [facility] No ATTENDING PHYSICIAN STATEMENT I saw and evaluated the patient. I reviewed the resident's note and discussed the case with the resident. I agree with the resident's findings and plan as documented. SUBJECTIVE: OBJECTIVE: ASSESSMENT AND PLAN:
== END 2020-01-26 17:55 | disposition home health service (06) | DRG 871 ==
LOC: JER 10:48 → JERBED 16:52 → J6S 18:13
PROVIDERS: ATTEND Internal Medicine
PROC: 0D9J30Z Drainage of Appendix with Drainage Device, Percutaneous Approach (ICD-10-PCS; principal; 2020-01-18)
DX: A41.9 Sepsis, unspecified organism (principal); K35.33 Acute appendicitis with perforation, localized peritonitis, and gangrene, with abscess; Z68.41 Body mass index [BMI] 40.0-44.9, adult; E66.01 Morbid (severe) obesity due to excess calories; D72.829 Elevated white blood cell count, unspecified; K21.9 Gastro-esophageal reflux disease without esophagitis; K76.0 Fatty (change of) liver, not elsewhere classified
CPT/HCPCS: 36415; 49406; 71045-TC-FY; 74177-TC; 76705-TC; 80048; 80053; 80061; 81003; 82550; 83036; 83690; 83721; 83735; 84100; 84439; 84443; 84484; 85025; 85027; 85610; 85730; 86850; 86900; 86901; 87040; 87070; 87075; 87076; 87086; 87102; 87116; 87186; 87205; 87206; 87210; 93005; 93010; 94010; 99285-25; C9803; J0131; J1644; Q2036; Q9967; U0003

== ENCOUNTER 2020-04-17 04:18 | Inpatient (IN) | payer OTHER ==
[2020-04-17] MEDS ORDERED: oxyCODONE HCL 5 MG TABLET PO PRN ×2 (08:47→18:00)
[2020-04-17] MEDS ORDERED: IBUPROFEN 800 MG/8 ML IJ IVPB PRN (08:47)
[2020-04-17] MEDS ORDERED: ONDANSETRON 4 MG/2 ML VIAL IVPUSH PRN (08:47)
[2020-04-17] MEDS ORDERED: LACTATED RINGERS SOLUTION 1,000 ML IV SCH (09:00)
[2020-04-17] MEDS ORDERED: LIDOCAINE HCL/PF 2% SDV 5ML VIAL ONE (09:06)
[2020-04-17] MEDS ORDERED: fentaNYL CITRATE 250 MCG/5 ML VIAL ONE (09:06)
[2020-04-17] MEDS ORDERED: MIDAZOLAM HCL 2 MG/2 ML SINGLE DOSE VIAL ONE (09:07)
[2020-04-17] MEDS ORDERED: PROPOFOL 20 ML ONE ×3 (09:07→09:22)
[2020-04-17] MEDS ORDERED: ceFAZolin SODIUM 1 GM VIAL ONE (09:14)
[2020-04-17] MEDS ORDERED: SUCCINYLCHOLINE CHLORIDE 200 MG/10 ML SYRINGE ONE (09:14)
[2020-04-17] MEDS ORDERED: ROCURONIUM BROMIDE 50 MG/5 ML SYRINGE ONE (09:14)
[2020-04-17] MEDS ORDERED: ceFAZolin SODIUM 1 GM VIAL IVPB ONE (09:19)
[2020-04-17] MEDS ORDERED: DEXAMETHASONE SOD PHOSPHATE 4 MG/1 ML VIAL ONE (09:22)
[2020-04-17] MEDS ORDERED: GLYCOPYRROLATE 0.2 MG/1 ML VIAL ONE (10:50)
[2020-04-17] MEDS ORDERED: NEOSTIGMINE METHYLSULFATE 0.5 MG/ML - 10 ML MDV ONE (10:51)
[2020-04-17] MEDS ORDERED: DESFLURANE GAS 240 ML BOTTLE IH ONE (11:20)
[2020-04-17] MEDS: HYDROmorphone HCL CARPU-JECT 2 MG/1 ML DISP.SYRIN IVPB PRN ×2 (11:45→11:50)
[2020-04-17] MEDS ORDERED: IBUPROFEN 800 MG/8 ML IJ IVPB ONE (11:52)
[2020-04-17] MEDS ORDERED: HYDROmorphone HCl 2 MG/ML VIAL ONE (11:54)
[2020-04-17] MEDS ORDERED: ACETAMINOPHEN 1000 MG/100 ML BAG IVPB PRN ×2 (12:04→12:21)
[2020-04-17] MEDS: SODIUM CHLORIDE 1,000 ML IV SCH (14:00)
[2020-04-17 17:11] VITALS: BMI 42.7
[2020-04-17] MEDS ORDERED: ACETAMINOPHEN 325 MG TABLET (FP) PO PRN (18:00)
[2020-04-17] MEDS: IBUPROFEN 600 MG TABLET (FP) PO SCH (18:08)
[2020-04-18] MEDS: IBUPROFEN 600 MG TABLET (FP) PO SCH ×4 (00:14→19:34)
[2020-04-18 08:30] LABS: CALCIUM 8.4 mg/dL (8.5-10.1)
[2020-04-18 08:31] LABS: ALBUMIN 3.3 g/dl (3.4-5.0); BLOOD UREA NITROGEN 13.4 mg/dL (7-18)
[2020-04-18 08:33] LABS: CREATININE 0.7 mg/dL (0.55-1.3)
[2020-04-18 08:34] LABS: TOT PROT 6.7 g/dl (6.4-8.2)
[2020-04-18 09:33] LABS: BASO % 0.2 % (0-2.0); EOS % 0.2 % (0-4.5); HEMATOCRIT 40.2 % (35.4-49); HEMOGLOBIN 13.6 GM/dL (11.7-16.9); LYMPH % 20.1 % (8-40); MCH 30.1 pg (25.7-33.7); MCHC 33.8 g/dl (32.0-35.9); MEAN PLT VOLUME 8.8 fl (7.5-11.1); MONO % 6.5 % (3.8-10.2); PLATELET COUNT 243 K/MM3 (134-434); RBC 4.52 M/mm3 (4.00-5.60); RDW 13.2 % (11.9-15.9); WHITE BLOOD COUNT 10.4 K/mm3 (4.0-10.0)
[2020-04-18] MEDS: ENOXAPARIN NA (PORCINE) 40 MG/0.4 ML DISP.SYRIN SQ SCH (11:53)
[2020-04-18] MEDS: PANTOPRAZOLE 40 MG TABLET PO SCH (11:53)
[2020-04-18] MEDS: SODIUM CHLORIDE 1,000 ML IV SCH (19:34)
[2020-04-19] MEDS: IBUPROFEN 600 MG TABLET (FP) PO SCH ×4 (00:26→18:04)
[2020-04-19] MEDS ORDERED: SIMETHICONE 80 MG TAB.CHEW (FP) PO PRN (08:35)
[2020-04-19] MEDS: ENOXAPARIN NA (PORCINE) 40 MG/0.4 ML DISP.SYRIN SQ SCH (09:41)
[2020-04-19] MEDS: PANTOPRAZOLE 40 MG TABLET PO SCH (09:41)
[2020-04-19 11:03] LABS: BASO % 0.2 % (0-2.0); EOS % 1.7 % (0-4.5); HEMATOCRIT 39.8 % (35.4-49); HEMOGLOBIN 13.5 GM/dL (11.7-16.9); LYMPH % 25.1 % (8-40); MCH 30.2 pg (25.7-33.7); MCHC 33.9 g/dl (32.0-35.9); MEAN CELL VOLUME 89.1 fl (80-96); MEAN PLT VOLUME 8.8 fl (7.5-11.1); MONO % 6.6 % (3.8-10.2); NEUT % 66.4 % (42.8-82.8); PLATELET COUNT 204 K/MM3 (134-434); RBC 4.47 M/mm3 (4.00-5.60); RDW 13.4 % (11.9-15.9); WHITE BLOOD COUNT 7.4 K/mm3 (4.0-10.0)
[2020-04-19] MEDS: SODIUM CHLORIDE 1,000 ML IV SCH (12:29)
[2020-04-20] MEDS: IBUPROFEN 600 MG TABLET (FP) PO SCH ×2 (01:00→06:10)
[2020-04-20] MEDS: ENOXAPARIN NA (PORCINE) 40 MG/0.4 ML DISP.SYRIN SQ SCH (09:18)
[2020-04-20] MEDS: PANTOPRAZOLE 40 MG TABLET PO SCH (09:18)
[2020-04-20 10:54] VITALS: BP 122/76; PULSE 68; TEMP 98.2
== END 2020-04-20 11:59 | disposition home or self-care (01) | DRG 342 ==
LOC: JASU-SURG 04:18 → J2C 12:18 → J6S 15:33
PROVIDERS: ADMIT Surgery; ATTEND Surgery
PROC: 0DTJ4ZZ Resection of Appendix, Percutaneous Endoscopic Approach (ICD-10-PCS; principal; 2020-04-17 09:30)
DX: K35.80 Unspecified acute appendicitis (principal); Z68.41 Body mass index [BMI] 40.0-44.9, adult; E66.01 Morbid (severe) obesity due to excess calories
CPT/HCPCS: 36415; 76870-TC; 80053; 85025; 88304-TC; 94010; 94760; J0131